=== PATIENT | male | born 1945 | race Caucasian/White ===

== ENCOUNTER → 2016-05-29 | Outpatient (CLI) | payer MEDICARE ==
[~2016-05-29] MED LIST: AMOX500C2 PO; ASP81TEC PO; CEPH250C PO; CHOL200035 PO; CHOL400C8 PO; CLIN-62 PO; COLL30OI TOP; CYAN500T2 PO; D3; DILT300C25 PO; DOXY100C2 PO; E400C; FISH1CAP15 PO; GLIM4TAB PO; IRB150T; LEVO250T7 PO; MELO7.5T PO; MTF500T PO; NEOM14.217 TP; NIA500ERT PO; NIAC500T6 PO; OMEG1CAP51 PO; OMG1KC; Phenazopyridine Hcl PO; SIMV20TA3 PO; SMV10T PO; Silver Sulfadiazine; TRZS2T PO; VITA400T9 PO; ZLP10T
--- OUTSIDE RECORDS SUMMARY | 2016-05-29 13:39 | XMS REPORT | Continuity of Care Document ---
Author Author [facility] Organization [facility] Address Unknown Phone Unavailable Care Team Providers Care Professor Of Art History Name Role Phone Femi Powell PCP [phone] Source Comments Some departments are not documenting in the electronic medical record. If you do not see the information that you expected, contact Release of Information in the Health Information Management department at [phone] for further assistance in locating additional records.[facility] Active Allergies and Adverse Reactions No Known Allergies Current Medications Prescription Sig. Disp. Refills Start End Date Status Date metFORMIN (GLUCOPHAGE) Take 500 mg by mouth Active 500 mg tablet twice daily with meals. fish oil /omega-3 fatty Take 1 Cap by mouth Active acids (SEA-OMEGA) daily. 340/1000 mg capsule vitamin E 400 unit Take 800 Units by mouth Active capsule daily. meloxicam (MOBIC) 7.5 mg Take 7.5 mg by mouth Active tablet daily. cholecalciferol (VITAMIN Take 1,000 Units by mouth Active D-3) 1,000 units tablet daily. vitamins, B complex tab Take 1 Tab by mouth Active daily. aspirin 81 mg chewable Take 81 mg by mouth at Active tablet bedtime daily. terazosin (HYTRIN) 2 mg Take 2 mg by mouth at Active capsule bedtime daily. diltiazem CD (CARDIZEM Take 300 mg by mouth Active CD) 300 mg capsule daily. sulfamethoxazole-trimetho Take 1 Tab by mouth twice 9 Tab 0 12/05/19 Active prim (BACTRIM DS) 800-160 daily. Take for 3 days 16 mg tablet nicotine (NICODERM CQ Apply 1 Patch to top of 28 Patch 2 12/05/19 Active STEP 1) 21 mg/day patch skin as directed daily. 16 Stop cigarette use at tx onset Indications: NICOTINE DEPENDENCE, SMOKING CESSATION HYDROcodone/acetaminophen Take 1 Tab by mouth every 10 Tab 0 12/07/19 Active (NORCO) 5-325 mg tablet 4-6 hours as needed for 16 Pain Active Problems Problem Noted Date UTI (lower urinary tract infection) 03/07/2015 Urethral stricture 01/10/2015 Last Assessment & Plan: Will need RUG given his current obstructive symptoms Bladder cancer (HCC) 01/10/2015 Last Assessment & Plan: Recurrent low grade Ta next surveillance cystoscopy due March 2015 Penile cancer (HCC) 01/10/2015 Last Assessment & Plan: To OR for excision, discussed 5-FU, repeat laser ablation or partial penectomy. Patient would like to undergo excision. Consents signed. Most Recent Encounters Date Type Specialty Providers Description 03/07/2016 Office Visit Urology Vishnu Cuello MBBS Postprocedural male urethral stricture (Primary Dx); Malignant neoplasm of overlapping sites of bladder (HCC); Penile cancer (HCC) Social History Tobacco Use Types Packs/Day Years Used Date Former Smoker Cigarettes 1.5 50 Smokeless Tobacco: Never Used Tobacco Cessation: Counseling Given: Yes Comments: Alcohol Use Drinks/Week oz/Week Comments No 0 Standard 0.0 Quit drinking 09/2014 drinks or equivalent Last Filed Vital Signs Vital Sign Reading Time Taken Blood Pressure 138/76 03/07/2016 2:01 PM RN ONCOLOGY RESEARCH Pulse 76 03/07/2016 2:01 PM RN ONCOLOGY RESEARCH Temperature 36.6 C (97.9 F) 12/07/2015 11:45 AM CDT Respiratory Rate - - Height 1.778 m (5' 10") 03/07/2016 2:01 PM RN ONCOLOGY RESEARCH Weight 84.369 kg (186 lb) 03/07/2016 2:01 PM RN ONCOLOGY RESEARCH Body Mass Index 26.69 03/07/2016 2:01 PM RN ONCOLOGY RESEARCH Oxygen Saturation 92% 12/07/2015 11:45 AM CDT Plan of Care Date Type Specialty Providers Description 06/04/2016 Appointment Urology Ngoc Mccarthy MD [address] [facility] [address] [place] [address] [phone] (Fax) Health Maintenance Due Date Last Done Comments Hepatitis C Screening 1945 Physical (Comprehensive) 1952 Exam Pertussis Vaccine 1957 Tetanus Vaccine 1963 Colorectal Cancer 01/21/1996 Screening Shingles Vaccine 2006 Prevnar/Pneumovax (#1) 2011 Influenza Vaccine 12/27/2015 Results from Last 3 Months Not on file
--- NOTE | 2016-05-29 15:01 | Diagnostic Imaging Report ---
PROCEDURE: Lung cancer screening CT chest without contrast. TECHNIQUE: Multiple contiguous axial images were obtained through the chest without the use of intravenous contrast. This is performed with a low-dose protocol. INDICATION: Currently asymptomatic patient with 150 pack years history of smoking COMPARISON: Chest x-ray of 11/08/2007. FINDINGS: There is a lobulated solid mass in the lower posterior aspect of the left upper lobe just anterior to the major fissure, by a few millimeters from the major fissure in its upper aspect. It is 2.7 x 2.4 x 2.2 cm in size. This mass is new from chest x-ray of 11/08/2007. No other pulmonary nodule or mass is seen. Upper lobe predominant mild emphysema changes are seen. There is no mediastinal mass or significantly enlarged lymph nodes. The hilar vessels are not opacified with no definite underlying mass or lymphadenopathy seen. No axillary lymphadenopathy noted. Sections in the upper abdomen are associated with significant image noise related to the low dose technique with no definitive abnormality. The osseous structures appear grossly unremarkable. IMPRESSION: A 2.7 cm left upper lobe mass at the level of the hilum concerning for malignancy. Evaluation with PET/CT is suggested. Dr. Powell is called and informed about the findings by Dr. Dick at time of dictation. Lung Rads Category IVb. Recommendations: PET/CT and further management decisions based on PET results recommended. Dictated by: Dictated on workstation # [id number]
== END ==
LOC: RAD 13:35
PROVIDERS: ATTEND Family Medicine
DX: Z12.2 Encounter for screening for malignant neoplasm of respiratory organs (principal); Z87.891 Personal history of nicotine dependence

== ENCOUNTER → 2016-06-03 | Outpatient (CLI) | payer MEDICARE ==
--- OUTSIDE RECORDS SUMMARY | 2016-06-03 10:23 | XMS REPORT | Continuity of Care Document ---
Author Author [facility] Organization [facility] Address Unknown Phone Unavailable Care Team Providers Care Role Player Name Role Phone Femi Powell PCP [phone] Source Comments Some departments are not documenting in the electronic medical record. If you do not see the information that you expected, contact Release of Information in the Health Information Management department at [phone] for further assistance in locating additional records.[facility] Active Allergies and Adverse Reactions No Known [...] Taken Blood Pressure 138/76 03/07/2016 2:01 PM FUR REPAIR INSPECTOR Pulse 76 03/07/2016 2:01 PM FUR REPAIR INSPECTOR Temperature 36.6 C (97.9 F) 12/07/2015 11:45 AM CDT Respiratory Rate - - Height 1.778 m (5' 10") 03/07/2016 2:01 PM FUR REPAIR INSPECTOR Weight 84.369 kg (186 lb) 03/07/2016 2:01 PM FUR REPAIR INSPECTOR Body Mass Index 26.69 03/07/2016 2:01 PM FUR REPAIR INSPECTOR Oxygen Saturation 92% 12/07/2015 11:45 AM CDT Plan of Care Date Type Specialty Providers Description 06/04/2016 Appointment Urology Ngoc Mccarthy MD [address] [facility] [address] [place] [address] [phone] (Fax) Health Maintenance Due Date Last Done Comments Hepatitis C Screening 1945 Physical (Comprehensive) 1952 Exam Pertussis Vaccine 1957 Tetanus Vaccine 1963 Colorectal Cancer 01/21/1996 Screening Shingles Vaccine 2006 Prevnar/Pneumovax (#1) 2011 Influenza Vaccine 12/27/2015 Results from Last 3 Months Not on file
--- NOTE | 2016-06-03 14:15 | Diagnostic Imaging Report ---
EXAMINATION: PET-CT TECHNIQUE: Serum glucose level at the time of the study is: 136 mg/dL. 12.2 mCi of FDG was administered intravenously followed by obtaining PET images with corresponding noncontrast CT scan images. The CT scan was performed for anatomic correlation and attenuation correction and was not performed according to the diagnostic protocol of the areas covered. The scan was performed from the head to mid thighs. INDICATION: Left lung nodule seen on screening CT scan of the chest from 05/29/2016. FINDINGS: There is a 2.4 cm left upper lobe pulmonary nodule at the level of the hilum just anterior to the major fissure with significant FDG uptake with SUV of 8.4. There is a left hilar lymph node with hypermetabolism and SUV of 7.2. This is located at the bifurcation of the left upper lobe bronchus into the upper lobe and bronchus to the lingula and is estimated to be around 1.3 cm in size, not well from the adjacent structures on this unenhanced exam. There are no hypermetabolic mediastinal lymph nodes seen. No hypermetabolic lesion is seen in the neck. No hypermetabolic asymmetry is seen in the brain. In the abdomen and pelvis, there are areas of increased uptake in a somewhat diffuse fashion predominantly in the left colon and in the rectum, may relate to colitis. There is EVAR graft in the abdominal aorta which measures up to 3.2 cm in caliber. There is diverticulosis and diffuse thickening of the urinary bladder also seen on the associated CT. The bladder thickening could relate to cystitis. Urinary tract excretion seen. No hypermetabolic mass is identified. IMPRESSION: Hypermetabolic left upper lobe pulmonary nodule with an associated hypermetabolic left hilar lymph node suggestive of lung cancer. No mediastinal lymph nodes or evidence of distant metastasis. Dictated by: Dictated on workstation # [id number]
== END ==
LOC: RAD 10:19
PROVIDERS: ATTEND Family Medicine
DX: R91.1 Solitary pulmonary nodule (principal); J44.9 Chronic obstructive pulmonary disease, unspecified; R59.0 Localized enlarged lymph nodes; Z87.891 Personal history of nicotine dependence

== ENCOUNTER → 2016-10-21 | Outpatient (CLI) | payer MEDICARE ==
[~2016-10-21] VITALS: Ht 177.8 cm; Wt 83.5 kg
[~2016-10-21] MED LIST changes: +ACETAMINOPHEN 325 MG TABLET/CAPLET (TYLENOL) ONE; +ACETAMINOPHEN 325 MG TABLET/CAPLET (TYLENOL) PO ONE; +NS IV 500 ML 500 ML IV SCH; +diphenhydrAMINE 25 MG TAB (BENADRYL) PO ONE
[2016-10-21 12:20] VITALS: BP 121/70
[2016-10-21 12:34] VITALS: BP 121/70
[2016-10-21 12:40] VITALS: BP 126/63
[2016-10-21 13:50] VITALS: BP 137/73
[2016-10-21 14:10] VITALS: BP 142/91
[2016-10-21 15:50] VITALS: BP 124/74
== END ==
LOC: SDC 11:19
PROVIDERS: ATTEND Family Medicine
DX: D69.6 Thrombocytopenia, unspecified (principal); D64.81 Anemia due to antineoplastic chemotherapy; T45.1X5A Adverse effect of antineoplastic and immunosuppressive drugs, initial encounter
CPT/HCPCS: 36415; 86850; 86900; 86901; 86920

== ENCOUNTER → 2016-10-22 | Outpatient (CLI) | payer MEDICARE ==
[~2016-10-22] MED LIST changes: -ACETAMINOPHEN 325 MG TABLET/CAPLET (TYLENOL) ONE; -ACETAMINOPHEN 325 MG TABLET/CAPLET (TYLENOL) PO ONE; -NS IV 500 ML 500 ML IV SCH; -diphenhydrAMINE 25 MG TAB (BENADRYL) PO ONE
[2016-10-22 14:05] LABS: MEAN PLATELET VOLUME 9.9 FL (7.4-10.4); RED BLOOD COUNT 2.45 10^6/uL (4.35-5.85); RED CELL DISTRIBUTION WIDTH 18.5 % (10.0-14.5); WHITE BLOOD COUNT 6.8 10^3/uL (4.3-11.0)
== END ==
LOC: LAB 13:53
PROVIDERS: ATTEND Family Medicine
DX: D64.9 Anemia, unspecified (principal); D69.6 Thrombocytopenia, unspecified
CPT/HCPCS: 36415; 85027

== ENCOUNTER 2017-10-12 06:29 | Outpatient (CLI) | payer MEDICARE ==
[~2017-10-12] VITALS: Ht 177.8 cm; Wt 79.4 kg
[2017-10-12] MEDS ORDERED: METF10002 PO (15:45)
[2017-10-12] MEDS ORDERED: ATOR80TA76 PO (15:45)
[2017-10-12] MEDS ORDERED: TERA2CAP4 PO (15:45)
[2017-10-12] MEDS ORDERED: ASPI-586 PO (15:45)
[2017-10-12] MEDS ORDERED: DOCO1CAP3 PO (15:45)
[2017-10-12] MEDS ORDERED: MIRT15TA6 PO (15:45)
[2017-10-12] MEDS ORDERED: VITA400T9 PO (15:45)
[2017-10-12] MEDS ORDERED: SAXA5TAB PO (15:45)
[2017-10-12] MEDS ORDERED: CHOL400T PO (15:45)
[2017-10-12] MEDS ORDERED: DILT300C36 PO (15:45)
[2017-10-12] MEDS ORDERED: DIPH25TA27 PO (15:45)
== END 2017-10-12 15:58 | disposition home or self-care (01) ==
LOC: PREOP 06:29
PROVIDERS: ATTEND Surgery
DX: Z01.818 Encounter for other preprocedural examination (principal)

== ENCOUNTER 2017-10-21 12:39 | Day surgery (SDC) | payer MEDICARE ==
[~2017-10-21] VITALS: Ht 177.8 cm; Wt 79.4 kg
[~2017-10-21 12:39] MED LIST changes: +ASPI-586 PO; +ATOR80TA76 PO; +CHOL400T PO; +DILT300C36 PO; +DIPH25TA27 PO; +DOCO1CAP3 PO; +METF10002 PO; +MIRT15TA6 PO; +SAXA5TAB PO; +TERA2CAP4 PO
--- OUTSIDE RECORDS SUMMARY | 2017-10-21 12:45 | XMS REPORT | Encounter Summary ---
Author Author [facility] Organization [facility] Address Unknown Phone Unavailable Care Team Providers Care Farmworker Pullet Farm Name Role Phone Ngoc Mccarthy MD Unavailable Unavailable Femi Powell DO PCP Estella Hutchison RN Unavailable Unavailable Jessica Crooks RN Unavailable Unavailable Ngoc Mccarthy MD Unavailable Unavailable Yue Allen RN Unavailable Unavailable Encounter Details Date Type Department Care Team Description 08/05/2017 Procedure Pass [facility] Exam [address] [place] [address] Social History Tobacco Use Types Packs/Day Years Used Date Former Smoker Cigarettes 2.5 50 Quit: 12/13/2015 Smokeless Tobacco: Never Used Alcohol Use Drinks/Week oz/Week Comments No 0 Standard 0.0 Quit drinking 09/2014 drinks or equivalent Sex Assigned at Date Recorded Not on file as of this encounter Functional Status Functional Status Response Date of Assessment Does the patient have a hearing impairment: No 09/12/2016 Does the patient have a visual impairment: Yes 09/12/2016 Does the patient have impaired ambulation: No 09/12/2016 Does the patient have an activity of daily living No 09/12/2016 (ADL) impairment: Does the patient have an instrumental activity of No 09/12/2016 daily living (IADL) impairment: Cognitive Status Response Date of Assessment Does the patient have a cognitive impairment: No 09/12/2016 as of this encounter Plan of Treatment Date Type Specialty Care Team Description 08/05/2017 Procedure Pass Oncology as of this encounter Visit Diagnoses Not on filein this encounter
--- OUTSIDE RECORDS SUMMARY | 2017-10-21 12:45 | XMS REPORT | Clinical Summary ---
Author Author [facility] Organization [facility] Address Unknown Phone Unavailable Care Team Providers Care Nascar Pit Crew Person Name Role Phone Ngoc Mccarthy MD Unavailable Unavailable Femi Powell DO PCP Estella Hutchison RN Unavailable Unavailable Jessica Crooks RN Unavailable Unavailable Ngoc Mccarthy MD Unavailable Unavailable Yue Allen RN Unavailable Unavailable Source Comments Some departments are not documenting in the electronic medical record. If you do not see the information that you expected, contact Release of Information in the Health Information Management department at [phone] for further assistance in locating additional records.[facility] Allergies No Known Allergies Current Medications Prescription Sig. Disp. Refills Start End Date Status Date fish oil /omega-3 fatty Take 1 Cap by mouth Active acids (SEA-OMEGA) daily. 340/1000 mg capsule vitamin E 400 unit Take 800 Units by mouth Active capsule daily. cholecalciferol (VITAMIN Take 1,000 Units by mouth Active D-3) 1,000 units tablet daily. aspirin 81 mg chewable Take 81 mg by mouth at Active tablet bedtime daily. terazosin (HYTRIN) 2 mg Take 2 mg by mouth at Active capsule bedtime daily. insulin detemir(+) Inject 20 Units under the 06/04/19 Active (LEVEMIR) 100 unit/mL skin at bedtime daily. 17 soln Saxagliptin 5 mg tab Take 1 Tab by mouth Active daily. insulin aspart (NOVOLOG 4 Units three times daily Active FLEXPEN) 100 unit/mL with meals. 4 units in injection PEN am, 4 units noon, 4 units pm lidocaine/prilocaine Apply to port area 30 30 g 2 08/02/19 Active (EMLA) 2.5/2.5 % topical minutes to 1 hour prior 17 cream to access. collagenase (SANTYL) 250 Apply topically to Active unit/g topical ointment affected area daily as needed. mupirocin (BACTROBAN) 2 % Apply topically to Active topical ointment affected area daily as needed. atorvastatin (LIPITOR) 80 Take 40 mg by mouth at Active mg tablet bedtime daily. diltiazem SA (+) (TIAZAC) Take 300 mg by mouth Active 300 mg capsule daily. metFORMIN (GLUCOPHAGE) Take 1,000 mg by mouth Active 1,000 mg tablet twice daily with meals. docusate (COLACE) 100 mg Take 200 mg by mouth Active capsule daily as needed for Constipation. erythromycin (ROMYCIN) Apply 0.5 inches to both 3.5 g 2 12/10/19 Active ophthalmic eyes three times daily. 17 ointmentIndications: Bacterial conjunctivitis of both eyes budesonide respule Inhale 2 mL solution by 60 mL 3 02/13/20 Active (PULMICORT) 0.5 mg/2 mL nebulizer as directed 17 nebulizer twice daily. J44.9 COPD solutionIndications: Chronic obstructive pulmonary disease, unspecified COPD type (HCC) mirtazapine (REMERON) 15 Take 1 tablet by mouth at 90 tablet 3 Active mg tablet bedtime daily. 18 Active Problems Problem Noted Date Chronic hypoxemic respiratory failure (HCC) 02/11/2017 Nicotine dependence, cigarettes, in remission 02/11/2017 CLEO (acute kidney injury) ([facility]) 08/01/2016 Last Assessment & Plan: IV fluids on and Thursday. Repeat CMP on Thursday and on 08/08. Small cell lung cancer (HCC) 07/04/2016 Overview: He presented to PCP for increaseing SOB and productive cough over few months. 05/29/16: CT lung screening showed a 2.7 x 2.4 x 2.2cm lobulated BLAS mass. 06/03/16: PET showed a BLAS mass with SUV 8.4, L hilar node (1.3cm, SUV 7.2). 06/17/16: CT chest showed stable BLAS mass, stable tiny RML nodule, and mild L hilar node, moderate empysema. 06/17/16: PFTs showed FEV1 45% predicted, DLCO 38% predicted, indicating very poor pulmonary function. 06/17/16: visit to [facility] thoracic surgery. cT1bN1. Due to the poor pulmonary function, nonsurgical approach was recommended. 06/26/16: EBUS FNA on 12L node showed carcinoma with +ve CK7/TTF1/CD56/chromo/synapto/Ki67 > 95%, consistent with small cell lung cancer. 07/03/16: visit to radiation oncology (Ephraim Brandon). Concurrent chemoradiation (45Gy in 30Fr BID) was suggested. 07/16/16: Brain MRI showed no metastatic lesion but sign of subacute stroke. Treatment- Cisplatin etoposide X 1 cycle, Carboplatin Etoposide 3 cycles - Concurrent radiation. (Last chemotherapy 10/07/2016). L ast Assessment & Plan: He is here for follow up. He has continued fatigue and poor appetite. Weight stable but not able to gain. On examination he has no focal neurological deficit. No palpable neck adenopathy on neck. Lungs clear bilaterally. Labs reviewed and are stable. TSH few months ago was normal. I discussed sleep and appetite. I prescribed Remeron 15 mg to help sleep and appetite. Return in 3 months with lab and CT scan, will follow up any appetite improvement as well. Personal history of tobacco use 06/20/2016 UTI (lower urinary tract infection) 03/07/2015 Urethral [...] would like to undergo excision. Consents signed. Lung nodule COPD (chronic obstructive pulmonary disease) (HCC) Encounters Date Type Specialty Care Team Description 08/26/2017 Telephone Oncology Venkat Cm MD Appointment Request 08/05/2017 Office Visit Oncology Venkat Cm MD Small cell lung cancer (HCC) 08/05/2017 Nurse Only Oncology Venkat Cm MD Small cell carcinoma of lung (HCC) 08/03/2017 Office Visit Radiation Therapy Vesta Brandon MD Lung nodule from Last 3 Months Immunizations Name Dates Previously Given Next Due Flu Vaccine=>66 YO 02/11/2017 High-Dose (PF) Pneumococcal 02/11/2017 Vaccine(13-[facility]/immunocompromised adult) Family History Medical History Relation Name Comments Drug Abuse Brother Stroke Father Hip Fracture Mother Relation Name Status Comments Brother Overdose (Age 72) Brother Father (Age 63) Mother (Age 97) Social History Tobacco Use Types Packs/Day Years Used Date Former Smoker Cigarettes 2.5 50 Quit: 12/13/2015 Smokeless Tobacco: Never Used Tobacco Cessation: Counseling Given: Yes Alcohol Use Drinks/Week oz/Week Comments No 0 Standard 0.0 Quit drinking 09/2014 drinks or equivalent Sex Assigned at Date Recorded Not on file Last Filed Vital Signs Vital Sign Reading Time Taken Blood Pressure 151/82 08/05/2017 10:53 AM CDT Pulse 94 08/05/2017 10:53 AM CDT Temperature 36.4 C (97.5 F) 08/05/2017 10:53 AM CDT Respiratory Rate 20 08/05/2017 10:53 AM CDT Oxygen Saturation 94% 08/05/2017 10:53 AM CDT Inhaled Oxygen - - Concentration Weight 80.1 kg (176 lb 9.6 oz) 08/05/2017 10:53 AM CDT Height 177.8 cm (5' 10") 08/05/2017 10:53 AM CDT Body Mass Index 25.34 08/05/2017 10:53 AM CDT Plan of Treatment Date Type Specialty Care Team Description 08/05/2017 Procedure Pass Oncology Health Maintenance Due Date Last Done Comments HEPATITIS C SCREENING 1945 PHYSICAL (COMPREHENSIVE) 1952 EXAM PERTUSSIS VACCINE 1957 TETANUS VACCINE 1963 COLORECTAL CANCER 01/21/1996 SCREENING SHINGLES RECOMBINANT 01/21/1996 VACCINE (1 of 2) ABDOMINAL AORTIC ANEURYSM 2011 SCREENING INFLUENZA VACCINE 01/25/2018 02/11/2017 PNEUMONIA (PCV13/PPSV23) 02/11/2018 02/11/2017 VACCINES (2 of 2 - PPSV23) Implants Implanted Type Area Key Holder Device Expiration Model / Identifier Date Serial / Lot Port Implantable 8 Float Point Unit Right: CR BARD:ACCESS [id number] 03/24/2017 [id number] / [employer] Intermediate - S. Chest Wall SYS [id number] . / Implanted: Qty: 1 on 07/30/2016 by [id number] Terrence Acuña MD Results * CBC AND DIFF (08/05/2017 10:24 AM) Component Value Ref Range White Blood Cells 8.7 4.5 - 11.0 K/UL RBC 4.11 (L) 4.4 - 5.5 M/UL Hemoglobin 13.5 13.5 - 16.5 GM/DL Hematocrit 39.0 (L) 40 - 50 % MCV 95.0 80 - 100 FL MCH 32.9 26 - 34 PG MCHC 34.6 32.0 - 36.0 G/DL RDW 13.9 11 - 15 % Platelet Count 173 150 - 400 K/UL MPV 7.6 7 - 11 FL Neutrophils 66 41 - 77 % Lymphocytes 15 (L) 24 - 44 % Monocytes 12 4 - 12 % Eosinophils 6 (H) 0 - 5 % Basophils 1 0 - 2 % Absolute Neutrophil Count 5.90 1.8 - 7.0 K/UL Absolute Lymph Count 1.30 1.0 - 4.8 K/UL Absolute Monocyte Count 1.00 (H) 0 - 0.80 K/UL Absolute Eosinophil Count 0.50 (H) 0 - 0.45 K/UL Absolute Basophil Count 0.10 0 - 0.20 K/UL Specimen Performing Laboratory Blood [facility] [address] [place] [address] * LDH-LACTATE DEHYDROGENASE (08/05/2017 10:24 AM) Component Value Ref Range Lactate Dehydrogenase 208 100 - 210 U/L Specimen Performing Laboratory Blood [facility] [address] [place] [address] * COMPREHENSIVE METABOLIC PANEL (08/05/2017 10:24 AM) Component Value Ref Range Sodium 140 137 - 147 MMOL/L Potassium 4.3 3.5 - 5.1 MMOL/L Chloride 105 98 - 110 MMOL/L Glucose 133 (H) 70 - 100 MG/DL Blood Urea Nitrogen 20 7 - 25 MG/DL Creatinine 1.36 (H) 0.4 - 1.24 MG/DL Calcium 9.4 8.5 - 10.6 MG/DL Total Protein 6.6 6.0 - 8.0 G/DL Total Bilirubin 0.4 0.3 - 1.2 MG/DL Albumin 3.8 3.5 - 5.0 G/DL Alk Phosphatase 81 25 - 110 U/L AST (SGOT) 16 7 - 40 U/L CO2 30 21 - 30 MMOL/L ALT (SGPT) 13 7 - 56 U/L Anion Gap 5 3 - 12 eGFR Non 52 (L) >60 mL/min Comment: The eGFR is not validated for use in drug dosing adjustments.Continue to use estimated creatinine clearance per dosing reference text.Please contact the Clinical Pharmacist for questions. eGFR >60 >60 mL/min Comment: The eGFR is not validated for use in drug dosing adjustments.Continue to use estimated creatinine clearance per dosing reference text.Please contact the Clinical Pharmacist for questions. Specimen Performing Laboratory Blood [facility] [address] [place] [address] from Last 3 Months
--- OUTSIDE RECORDS SUMMARY | 2017-10-21 12:45 | XMS REPORT | Encounter Summary ---
Author Author [facility] Organization [facility] Address Unknown Phone Unavailable Care Team Providers Care Smalltalk Developer Name Role Phone Ngoc Mccarthy MD Unavailable Unavailable Femi Powell DO PCP Estella Hutchison RN Unavailable Unavailable Jessica Crooks RN Unavailable Unavailable Ngoc Mccarthy MD Unavailable Unavailable Yue Allen RN Unavailable Unavailable Reason for Visit * Reason Comments Appointment Request Encounter Details Date Type Department Care Team Description 08/26/2017 Telephone [facility] Venkat Cm MD Appointment Request [facility] - [facility] Exam [address] [place] [address] [place] [address] [phone] Social History Tobacco Use Types Packs/Day Years [...] impairment: No 09/12/2016 as of this encounter Miscellaneous Notes * Telephone Encounter - Kolby Hernández - 08/26/2017 9:18 AM CDT Spoke to pt to inform of the need to r/s his scans and rtc on 11/04 due to clinic freeze. He is now scheduled on 11/11 for labs/CT and RTC with Dr Cm. He is aware and agreed to date and time. in this encounter Plan of Treatment Date Type Specialty Care Team Description 08/05/2017 Procedure Pass Oncology as of this encounter Visit Diagnoses Not on filein this encounter
--- OUTSIDE RECORDS SUMMARY | 2017-10-21 12:45 | XMS REPORT | Encounter Summary ---
Author Author [facility] Organization [facility] Address Unknown Phone Unavailable Care Team Providers Care Candy Dipper Hand Name Role Phone Ngoc Mccarthy MD Unavailable Unavailable Femi Powell DO PCP Estella Hutchison RN Unavailable Unavailable Jessica Crooks RN Unavailable Unavailable Ngoc Mccarthy MD Unavailable Unavailable Yue Allen RN Unavailable Unavailable Reason for Visit * Reason Comments Heme/Onc Care Encounter Details Date Type Department Care Team Description 08/05/2017 Nurse Only [facility] Venkat Cm MD Small cell carcinoma of Cancer Center - [facility] Exam [address] lung (HCC) [address] [place] [address] [place] [address] [phone] Social History Tobacco Use Types Packs/Day Years [...] Procedure Pass Oncology as of this encounter Results * LDH-LACTATE DEHYDROGENASE (08/05/2017 10:24 AM) Component Value Ref Range Lactate Dehydrogenase 208 100 - 210 U/L Specimen Performing Laboratory Blood [facility] [address] [place] [address] * CBC AND DIFF (08/05/2017 10:24 AM) [...] - 0.20 K/UL Specimen Performing Laboratory Blood [facility] [address] [place] [address] * COMPREHENSIVE METABOLIC PANEL (08/05/2017 10:24 AM) [...] Pharmacist for questions. Specimen Performing Laboratory Blood [facility] [address] [place] [address] in this encounter Visit Diagnoses Diagnosis Small cell carcinoma of lung (HCC) Malignant neoplasm of bronchus and lung, unspecified site Administered Medications Medication Order MAR Action Action Date Dose Rate Site heparin lock flush PF syringe 500 Units Given 08/05/2017 500 Units 500 Units, Intravenous, ONCE, 1 dose, 10:20 CDT 08/05/17 at 1030, NOTE: This is a HIGH ALERT Medication. in this encounter
--- OUTSIDE RECORDS SUMMARY | 2017-10-21 12:46 | XMS REPORT | Encounter Summary ---
Author Author [facility] Organization [facility] Address Unknown Phone Unavailable Care Team Providers Care Technical Lead Name Role Phone Ngoc Mccarthy MD Unavailable Unavailable Femi Powell DO PCP Estella Hutchison RN Unavailable Unavailable Jessica Crooks RN Unavailable Unavailable Ngoc Mccarthy MD Unavailable Unavailable Yue Allen RN Unavailable Unavailable Reason for Referral * Radiology Services Status Reason Specialty Diagnoses / Referred By Referred To Procedures Contact Contact New Request Radiology Diagnoses Soila, Small cell lung MD Venkat cancer (HCC) [address] rocedures [address] [place], [place] [address] Reason for Visit * Reason Comments Heme/Onc Care Encounter Details Date Type Department Care Team Description 08/05/2017 Office Visit [facility] Veknat Cm MD Small cell lung cancer [facility] Exam [address] (HCC) [address] [place] [address] [place] [address] [phone] Social History Tobacco Use Types Packs/Day Years Used Date Former Smoker Cigarettes 2.5 50 Quit: 12/13/2015 Smokeless Tobacco: Never Used Alcohol Use Drinks/Week oz/Week Comments No 0 Standard 0.0 Quit drinking 09/2014 drinks or equivalent Sex Assigned at Date Recorded Not on file as of this encounter Last Filed Vital Signs Vital Sign Reading [...] Mass Index 25.34 08/05/2017 10:53 AM CDT in this encounter Functional Status Functional Status Response [...] impairment: No 09/12/2016 as of this encounter Progress Notes * Venkat Cm MD - 08/05/2017 11:00 AM CDT Formatting of this note may be different from the original. Date of Service: 08/05/2017 Subjective: Reason for Visit: Heme/Onc Care Nhan Galeano is a 72 y.o. male. Cancer Staging Bladder cancer (HCC) Staging form: Urinary Bladder, AJCC 7th Edition - Clinical: No stage assigned - Unsigned Smalll cell Lung Cancer History of Present Illness He presented to PCP for increaseing SOB [...] very poor pulmonary function. 06/17/16: visit to [facility] thoracic surgery. cT1bN1. Due to the poor pulmonary function, nonsurgical approach was recommended. 06/26/16: EBUS FNA on 12L node showed carcinoma with +ve CK7/TTF1/CD56/chromo/ synapto/Ki67 > 95%, consistent with small cell lung cancer. 07/03/16: visit to radiation oncology (Ephraim Brandon). Concurrent chemoradiation (45Gy in 30Fr BID) was suggested. 07/16/16: Brain MRI showed no metastatic lesion but sign of subacute stroke. Past Treatment- Cisplatin and etoposide one cycle (stopped because of toxicity) Carboplatin etoposide 3 cycles , last cycle 10/07/2016 and concurrent radiation ( total 4 cycles of chemotherapy completed) completed WBRT on 12/04/16. Interval history: He is here for follow up. He has continued to have significant fatigue which is gradually improving, feels much better now but still bothered by residual fatigue. Dyspnea is stable to slightly better. Review of Systems Constitutional: Positive for fatigue. HENT: Negative. Respiratory: Positive for shortness of breath. Cardiovascular: Negative. Gastrointestinal: Negative. Negative for nausea and vomiting. Genitourinary: Negative. Musculoskeletal: Negative. Skin: Negative. Neurological: Negative. Hematological: Negative. Psychiatric/Behavioral: Negative. All other systems reviewed and are negative. Objective: aspirin 81 mg chewable tablet Take 81 mg by mouth at bedtime daily. atorvastatin (LIPITOR) 80 mg tablet Take 40 mg by mouth at bedtime daily. budesonide respule (PULMICORT) 0.5 mg/2 mL nebulizer solution Inhale 2 mL solution by nebulizer as directed twice daily. J44.9 COPD cholecalciferol (VITAMIN D-3) 1,000 units tablet Take 1,000 Units by mouth daily. collagenase (SANTYL) 250 unit/g topical ointment Apply topically to affected area daily as needed. diltiazem SA (+) (TIAZAC) 300 mg capsule Take 300 mg by mouth daily. docusate (COLACE) 100 mg capsule Take 200 mg by mouth daily as needed for Constipation. erythromycin (ROMYCIN) ophthalmic ointment Apply 0.5 inches to both eyes three times daily. fish oil /omega-3 fatty acids (SEA-OMEGA) 340/1000 mg capsule Take 1 Cap by mouth daily. insulin aspart (NOVOLOG FLEXPEN) 100 unit/mL injection PEN 4 Units three times daily with meals. 4 units in am, 4 units noon, 4 units pm insulin detemir(+) (LEVEMIR) 100 unit/mL soln Inject 20 Units under the skin at bedtime daily. lidocaine/prilocaine (EMLA) 2.5/2.5 % topical cream Apply to port area 30 minutes to 1 hour prior to access. metFORMIN (GLUCOPHAGE) 1,000 mg tablet Take 1,000 mg by mouth twice daily with meals. mirtazapine (REMERON) 15 mg tablet Take 1 tablet by mouth at bedtime daily. mupirocin (BACTROBAN) 2 % topical ointment Apply topically to affected area daily as needed. Saxagliptin 5 mg tab Take 1 Tab by mouth daily. terazosin (HYTRIN) 2 mg capsule Take 2 mg by mouth at bedtime daily. vitamin E 400 unit capsule Take 800 Units by mouth daily. Vitals: 08/05/17 1053 BP: 151/82 Pulse: 94 Resp: 20 Temp: 36.4 C (97.5 F) TempSrc: Oral SpO2: 94% Weight: 80.1 kg (176 lb 9.6 oz) Height: 177.8 cm (70") Body mass index is 25.34 kg/m. Pain Score: Zero Pain Addressed: N/A Patient Evaluated for a Clinical Trial: No treatment clinical trial available for this patient. Eastern Cooperative Oncology Group performance status is 1, Restricted in physically strenuous activity but ambulatory and able to carry out work of a light or sedentary nature, e.g., light house work, office work. Physical Exam Constitutional: He is oriented to person, place, and time. Vital signs are normal. He appears well-developed and well-nourished. He is active. No distress. HENT: Head: Normocephalic and atraumatic. Right Ear: External ear normal. Left Ear: External ear normal. Nose: Nose normal. Mouth/Throat: Uvula is midline, oropharynx is clear and moist and mucous membranes are normal. No oropharyngeal exudate. Eyes: Conjunctivae and EOM are normal. Pupils are equal, round, and reactive to light. Right eye exhibits no discharge. Left eye exhibits no discharge. Neck: Trachea normal, normal range of motion and full passive range of motion without pain. No JVD present. Carotid bruit is not present. No thyromegaly present. Cardiovascular: Normal rate, regular rhythm, S1 normal, S2 normal, normal heart sounds, intact distal pulses and normal pulses. Exam reveals no gallop and no friction rub. No murmur heard. Pulmonary/Chest: Effort normal. No respiratory distress. He has no decreased breath sounds. He has no wheezes. He has no rhonchi. He has no rales. He exhibits no tenderness. Abdominal: Soft. Normal appearance and bowel sounds are normal. He exhibits no distension. There is no hepatosplenomegaly. There is no tenderness. Musculoskeletal: Normal range of motion. He exhibits no edema or tenderness. Lymphadenopathy: He has no cervical adenopathy. He has no axillary adenopathy. Neurological: He is alert and oriented to person, place, and time. No cranial nerve deficit. Skin: Skin is warm. He is not diaphoretic. There is pallor. Psychiatric: He has a normal mood and affect. His speech is normal and behavior is normal. Judgment and thought content normal. Cognition and memory are normal. Vitals reviewed. Assessment and Plan: Problem Small Cell Lung Cancer (Hcc) He presented to PCP for increaseing SOB [...] very poor pulmonary function. 06/17/16: visit to [facility] thoracic surgery. cT1bN1. Due to the poor pulmonary function, nonsurgical approach was recommended. 06/26/16: EBUS FNA on 12L node showed carcinoma with +ve CK7/TTF1/CD56/chromo/ synapto/Ki67 > 95%, consistent with small cell lung cancer. 07/03/16: visit to radiation oncology ([facility]). Concurrent chemoradiation (45Gy in 30Fr BID) was suggested. 07/16/16: Brain MRI showed no metastatic lesion but sign of subacute stroke. Treatment- Cisplatin etoposide X 1 cycle, Carboplatin Etoposide 3 cycles - Concurrent radiation. (Last chemotherapy 2016). Small cell lung cancer (HCC) He is here for follow up. He [...] follow up any appetite improvement as well. in this encounter Miscellaneous Notes * Assessment & Plan Note - Venkat Cm MD - 08/05/2017 9:25 PM CDT Associated Problem(s): Small cell lung cancer (HCC) He is here for follow up. He [...] follow up any appetite improvement as well. in this encounter Plan of Treatment Date Type Specialty Care Team Description 08/05/2017 Procedure Pass Oncology Name Priority Associated Diagnoses Order Schedule COMPREHENSIVE METABOLIC PANEL Routine Small cell lung cancer Expected: 11/04/2017 (HCC) (Approximate), Expires: 08/05/2018 LDH-LACTATE DEHYDROGENASE Routine Small cell lung cancer Expected: 11/04 (HCC) (Approximate), Expires: 08/05/2018 CBC AND DIFF Routine Small cell lung cancer Expected: 11/04/2017 (HCC) (Approximate), Expires: 08/05/2018 CT CHEST W CONTRAST Routine Small cell lung cancer Expected: 11/04/2017 (HCC) (Approximate), Expires: 08/05/2018 as of this encounter Visit Diagnoses Diagnosis Small cell lung cancer (HCC) Malignant neoplasm of bronchus and lung, unspecified site
--- OUTSIDE RECORDS SUMMARY | 2017-10-21 12:46 | XMS REPORT | Encounter Summary ---
Author Author [facility] Organization [facility] Address Unknown Phone Unavailable Care Team Providers Care Director Transition Name Role Phone Ngoc Mccarthy MD Unavailable Unavailable Femi Powell DO PCP Estella Hutchison RN Unavailable Unavailable Jessica Crooks RN Unavailable Unavailable Ngoc Mccarthy MD Unavailable Unavailable Yue Allen RN Unavailable Unavailable Reason for Visit * Reason Comments Rad Therapy Follow-up Encounter Details Date Type Department Care Team Description 08/03/2017 Office Visit [facility] - Radiation Vesta Brandon MD Lung nodule Therapy [address] [place] [address] [place] [address] [phone] Social History Tobacco Use Types Packs/Day Years Used Date Former Smoker Cigarettes 2.5 50 Quit: 12/13/2015 Smokeless Tobacco: Never Used Alcohol Use Drinks/Week oz/Week Comments No 0 Standard 0.0 Quit drinking 09/2014 drinks or equivalent Sex Assigned at Date Recorded Not on file as of this encounter Last Filed Vital Signs Vital Sign Reading Time Taken Blood Pressure 133/68 08/03/2017 9:40 AM CDT Pulse 110 08/03/2017 9:40 AM CDT Temperature 37 C (98.6 F) 08/03/2017 9:40 AM CDT Respiratory Rate - - Oxygen Saturation 91% 08/03/2017 9:40 AM CDT Inhaled Oxygen - - Concentration Weight 79.6 kg (175 lb 6.4 oz) 08/03/2017 9:40 AM CDT Height 175.3 cm (5' 9") 08/03/2017 9:40 AM CDT Body Mass Index 25.9 08/03/2017 9:40 AM CDT in this encounter Functional Status [...] as of this encounter Progress Notes * Vesta Brandon MD - 08/03/2017 10:00 AM CDT Formatting of this note may be different from the original. Date: 08/03/2017 Nhan Galeano is a 72 y.o. male. There were no encounter diagnoses. Staging: Cancer Staging Bladder cancer (HCC) Staging form: Urinary Bladder, AJCC 7th Edition - Clinical: No stage assigned - Unsigned Subjective: Cancer Staging Bladder cancer (HCC) Staging form: Urinary Bladder, AJCC 7th Edition - Clinical: No stage assigned - Unsigned History of Present Illness Previous radiotherapy: 1. concurrent chemoradiation to 45 Gy in 30 fractions BID with cisplatin/ etoposide, completed 08/13/16. 2. PCI, 25 Gy in 10 fractions, hippocampal sparing IMRT, completed 12/01/16 72 yo gentleman with limited stage SCLC s/p concurrent chemoRT BID and subsequent hippocampal-sparing PCI in November 2016. He was treated with hippocampal-sparing IMRT off trial (excluded due to history of bladder cancer). Interval history: Mr. Galeano returns today for 3 month follow-up. He continues to improve slowly from his treatments. He most significant complaint is fatigue, which has been improving very slowly since completion of his treatment. He still does not do much active work due to this. He also notes decreased appetite and continued taste changes; he has lost about 35 pounds from his pre-treatment weight, though this is starting to stabilize. No headaches, vision changes, facial numbness/weakness, limb numbness/weakness. No new cough, chest pain, hemoptysis , shortness of breath. Review of Systems Constitutional: Positive for fatigue. HENT: Positive for rhinorrhea and voice change. Eyes: Positive for discharge, redness and itching. Respiratory: Positive for cough (cough has worsened in the past week, has been taking OTC meds. Gets SOB sometimes, O2 sat running in mid 80s to low 90s, has oxygen at home; patient may start wearing oxygen at night.) and wheezing (Still has a nebulizer if needed. ). Gastrointestinal: Positive for constipation. Musculoskeletal: Positive for back pain and gait problem. Neurological: Positive for tremors (Gets really cold and then starts to shake, this occurs randomly and then resolves after several hours. ) and numbness (has searing nerve pain on bottoms of feet and sometimes fingers, patient is also diabetic, takes insulin but does not check BG levels; patient was instructed to check BG level daily. ). All other systems reviewed and are negative. Objective: albuterol (VENTOLIN HFA, PROAIR HFA, PROVENTIL HFA) 90 mcg/actuation inhaler Inhale 2 Puffs by mouth into the lungs every 6 hours as needed for Wheezing or Shortness of Breath. Shake well before use. albuterol-ipratropium (DUO-NEB, DUO-VENT) 0.5 mg-3 mg(2.5 mg base)/3 mL nebulizer solution Inhale 3 mL solution by nebulizer as directed four times daily. J44.9 COPD aspirin 81 mg chewable tablet Take 81 [...] mg by mouth twice daily with meals. mupirocin (BACTROBAN) 2 % topical ointment Apply topically to affected area daily as needed. ondansetron (ZOFRAN) 8 mg tablet Take 1 tablet by mouth every 8 hours as needed for Nausea or Vomiting. Saxagliptin 5 mg tab Take 1 Tab by mouth daily. terazosin (HYTRIN) 2 mg capsule Take 2 mg by mouth at bedtime daily. vitamin E 400 unit capsule Take 800 Units by mouth daily. vitamins, B complex tab Take 1 Tab by mouth daily. Vitals: 08/03/17 0940 BP: 133/68 Pulse: 110 Temp: 37 C (98.6 F) TempSrc: Temporal SpO2: (!) 91% Weight: 79.6 kg (175 lb 6.4 oz) Height: 175.3 cm (69") Body mass index is 25.9 kg/m. Pain Score: Zero KARNOFSKY PERFORMANCE SCORE: 80% Normal activity with effort; some symptoms of disease Physical Exam Constitutional: He is oriented to person, place, and time. He appears well- developed and well-nourished. No distress. HENT: Head: Normocephalic and atraumatic. Mouth/Throat: Oropharynx is clear and moist. Eyes: EOM are normal. Pupils are equal, round, and reactive to light. Cardiovascular: Normal rate and regular rhythm. Pulmonary/Chest: Effort normal and breath sounds normal. No respiratory distress. Neurological: He is alert and oriented to person, place, and time. No cranial nerve deficit. He exhibits normal muscle tone. Coordination normal. Assessment and Plan: Previous radiotherapy: 1. concurrent chemoradiation to 45 Gy in 30 fractions BID with cisplatin/ etoposide, completed 08/13/16. 2. PCI, 25 Gy in 10 fractions, hippocampal sparing IMRT, completed 12/01/16 History of Present Illness Mr. Galeano is a 72 yo gentleman with limited stage SCLC s/p concurrent chemoRT BID and subsequent hippocampal-sparing PCI in November 2016. He was treated with hippocampal-sparing IMRT off trial (excluded due to history of bladder cancer). He returns today for 3 month follow-up. He has been continuing to recover from his treatments, with slowly improving fatigue and some weight gain since his last visit. We discussed non-medication strategies to help him improve general well-being, including exercise, nutritional supplementation, and scheduled meals. He is reluctant to try further medical interventions at this time. We will plan to follow-up with him on an as needed basis given his close follow-up with medical oncology. Florentin Hickey MD PGY-3 Radiation Oncology [facility] 9062 ATTESTATION I personally performed the thomas portions of the E/M visit, discussed case with resident and concur with resident documentation of history, physical exam, assessment, and treatment plan unless otherwise noted. Staff name: Vesta Brandon MD Date: 08/04/2017 in this encounter Plan of Treatment Date Type Specialty Care Team Description 08/05/2017 Procedure Pass Oncology as of this encounter Visit Diagnoses Diagnosis Lung nodule Solitary pulmonary nodule
[2017-10-21 13:00] VITALS: BP 131/74
--- NOTE | 2017-10-21 14:47 | Conscious Sedation/ASA ---
Conscious Sedation Pre-Proced Time Reviewed: 14:47 ASA Class: 2 Airway Mallampati Classification: ([place] appropriate class) I. II. III, IV Lungs Heart ASA score ASA 1: a normal healthy patient ASA 2: a patient with a mild systemic disease (mid diabetes, controlled hypertension, obesity ASA 3: a patient with a severe systemic disease that limits activity (angina , COPD, prior Myocardial infarction) ASA 4: a patient with an incapacitating disease that is a constant threat to life (CHF, renal failure) ASA 5: a moribund patient not expected to survive 24 hrs. (ruptured aneurysm) ASA 6: a declared brain patient whose organs are being harvested. For emergent operations, add the letter E after the classification Grade 2 Sedation Plan: Discussed options with patient/fam Note The patient is an appropriate candidate to undergo the planned procedure, sedation, and anesthesia. The patient immediately re-assessed prior to indication. SHIRA JONES MD Oct 21, 2017 2:47 pm
[2017-10-21] MEDS ORDERED: fentaNYL INJECTION 100 MCG/2 ML AMP ONE (14:57)
[2017-10-21] MEDS ORDERED: MIDAZOLAM 2 MG/2 ML (VERSED) VIAL ONE ×4 (14:57)
[2017-10-21] MEDS ORDERED: NS IV 500 ML 500 ML ONE (15:03)
[2017-10-21] MEDS: fentaNYL INJECTION 100 MCG/2 ML AMP IVP PRN ×2 (15:10→15:13)
[2017-10-21] MEDS: MIDAZOLAM 2 MG/2 ML (VERSED) VIAL IVP PRN ×2 (15:11→15:14)
--- NOTE | 2017-10-21 15:40 | Endo Procedure Record ---
Endo Procedure Report Date of Procedure Last Colonoscopy: Yes (10/21/17) Oct 21, 2017 Surgeon (s) SHIRA JONES MD Post Procedure/Op Diagnosis 12 mm polyps 2, Catracho due to the along the proximal descending colon Sigmoid diverticulosis 1 mm polyp at the cecum Procedure Performed colonoscopy to cecum Snare polypectomy 2 Hot biopsy polypectomy 1 Description of Procedure Anesthesia Type: Conscious Sedation Specimen(s) collected/removed polyps Description of the Procedure indication for the procedure: This gentleman came in for colonoscopy to evaluate heme-positive stools. Informed consent was obtained after reviewing the procedure in detail. Description of procedure: He was placed in left lateral position and his vital signs were monitored. Conscious sedation was achieved using Versed and fentanyl. Digital rectal examination was unremarkable. The colonoscope was then introduced in the rectum and advanced all the way to the cecum The quality of bowel preparation was acceptable. The scope was then withdrawn slowly and the mucosa examined in a systematic fashion. Findings: 1. 12 mm pedunculated polyp at the proximal ascending colon, that was snared and retrieved 2. A similar polyp adjacent to the previously described polyp, that was snared and retrieved as well. 3. A moderate degree of sigmoid diverticulosis 4. 1 mm polyp at the cecum that was excised with hot biopsy forceps. He tolerated the procedure well and was taken back to the nursing area in a stable condition. Impression: Heme-positive stools. Multiple polyps excised. Recommend surveillance colonoscopy in one year. Copy Copies To 1: MARLIN VILLALTA XAVIER M MD Oct 21, 2017 3:40 pm
--- NOTE | 2017-10-21 15:42 | Discharge Inst-Simple/Standard ---
Discharge Inst-Standard Discharge Medications New, Converted or Re-Newed RX: Other Patient Instructions/Follow Up Plan of Care/Instructions/FU: repeat colonoscopy in one year Activity as Tolerated: Yes Discharge Diet: ADA Diet SHIRA JONES MD Oct 21, 2017 3:42 pm
[2017-10-21] MEDS ORDERED: NS IV 500 ML 500 ML IV ONE (16:00)
[2017-10-21 16:05] VITALS: BP 113/64
[2017-10-21 16:29] VITALS: BP 129/66
[2017-10-21 16:30] VITALS: BP 129/66
== END 2017-10-21 16:33 | disposition home or self-care (01) ==
LOC: ENDO 12:39
PROVIDERS: ATTEND Surgery
DX: D12.4 Benign neoplasm of descending colon (principal); K57.30 Diverticulosis of large intestine without perforation or abscess without bleeding; K51.40 Inflammatory polyps of colon without complications; C34.90 Malignant neoplasm of unspecified part of unspecified bronchus or lung; E11.9 Type 2 diabetes mellitus without complications; J44.9 Chronic obstructive pulmonary disease, unspecified; K59.09 Other constipation; Z92.21 Personal history of antineoplastic chemotherapy; Z92.3 Personal history of irradiation; Z79.82 Long term (current) use of aspirin; Z79.84 Long term (current) use of oral hypoglycemic drugs; Z79.899 Other long term (current) drug therapy; Z87.891 Personal history of nicotine dependence
CPT/HCPCS: 88305

== ENCOUNTER → 2018-01-08 | Outpatient (CLI) | payer MEDICARE ==
[~2018-01-08] MED LIST changes: +METF-399 PO; -METF10002 PO
== END ==
LOC: CARD 09:41
PROVIDERS: ATTEND Internal Medicine Cardiovascular Disease
DX: N18.9 Chronic kidney disease, unspecified (principal); E11.9 Type 2 diabetes mellitus without complications; C34.90 Malignant neoplasm of unspecified part of unspecified bronchus or lung; E78.2 Mixed hyperlipidemia; R00.2 Palpitations; R00.0 Tachycardia, unspecified; C67.9 Malignant neoplasm of bladder, unspecified
CPT/HCPCS: 93306

== ENCOUNTER → 2018-01-11 | Outpatient (CLI) | payer MEDICARE ==
[~2018-01-11] MED LIST changes: +CATHETER FLUSH 10 ML SYR IV PRN; +REGADENOSON 0.4 MG/5 ML SYR (LEXISCAN) IV ONE
[2018-01-11 10:11] VITALS: BP 135/75
[2018-01-11 10:16] VITALS: BP 113/60
--- NOTE | 2018-01-11 12:44 | STRESS TEST ---
DATE OF SERVICE: 01/11/2018 LEXISCAN MYOVIEW STRESS TEST REPORT REFERRING PHYSICIAN: Femi Powell DO. Baseline heart rate is 94. Baseline blood pressure 135/75. Baseline EKG sinus rhythm with no ischemic changes. In summary, the patient was injected with 10.93 mCi of technetium-99 Myoview and the resting images were obtained. Then, the patient received 0.4 mg of Lexiscan followed by 29.9 mCi of technetium-99 Myoview. Throughout the test, there were no EKG changes. The resting and stress images were reviewed and compared in the short axis, horizontal long axis, and vertical long axis views. Review of the images showed diaphragmatic attenuation with mild decreased uptake at the basal to mid inferolateral wall with mild reversibility. SSS is 4, SDS 2, TID value 1.18. On the gated images, the left ventricle appeared to be normal size with normal contractility. Calculated ejection fraction 60%. CONCLUSION: 1. The patient tolerated Lexiscan well. 2. Mild decreased uptake at the basal to mid inferior wall and inferolateral wall with subtle reversibility most probably secondary to diaphragmatic attenuation. 3. Normal left ventricular size with normal contractility. Calculated ejection fraction 60%. Job ID: [id number] DocumentID: [id number] Dictated Date: 01/11/2018 11:54:56 Air Duct Mechanic Date: 01/11/2018 12:44:12 Dictated By: LASHAY LIRA MD
== END ==
LOC: CARD 08:37
PROVIDERS: ATTEND Internal Medicine Cardiovascular Disease
DX: N18.9 Chronic kidney disease, unspecified (principal); E11.22 Type 2 diabetes mellitus with diabetic chronic kidney disease; E78.2 Mixed hyperlipidemia; R00.2 Palpitations; R00.0 Tachycardia, unspecified
CPT/HCPCS: 78452; 93017

== ENCOUNTER 2018-04-08 14:10 | Outpatient (RCR) | payer MEDICARE ==
[~2018-04-08] VITALS: Ht 177.8 cm; Wt 79.4 kg
[~2018-04-08 14:10] MED LIST changes: -CATHETER FLUSH 10 ML SYR IV PRN; -REGADENOSON 0.4 MG/5 ML SYR (LEXISCAN) IV ONE
[2018-04-08 14:15] VITALS: BP 139/67
[2018-04-08] MEDS ORDERED: CATHETER FLUSH 10 ML SYR IV PRN (14:30)
== END 2018-07-07 | disposition home or self-care (01) ==
LOC: SDC 14:10
PROVIDERS: ATTEND Family Medicine
DX: Z45.2 Encounter for adjustment and management of vascular access device (principal)
CPT/HCPCS: 96523

== ENCOUNTER → 2018-07-27 | Outpatient (CLI) | payer MEDICARE ==
[~2018-07-27] VITALS: Ht 177.8 cm; Wt 79.4 kg
[2018-07-27 07:38] VITALS: BP 145/81
[2018-07-27 08:20] LABS: ALBUMIN 3.8 GM/DL (3.2-4.5); BILIRUBIN,TOTAL 0.4 MG/DL (0.1-1.0); CALCIUM 8.8 MG/DL (8.5-10.1); CREATININE SERUM 1.3 MG/DL (0.60-1.30); POTASSIUM 4.3 MMOL/L (3.6-5.0); TOTAL PROTEIN 6.4 GM/DL (6.4-8.2)
--- NOTE | 2018-07-27 12:38 | Diagnostic Imaging Report ---
INDICATION: Back pain starting after chemotherapy and radiation treatment. TECHNIQUE: AP, Lateral and Spot imaging of the lumbar spine CORRELATION STUDY: None FINDINGS: Grade 2 spondylolisthesis L5 on S1, offset of approximately 15 mm. Probable pars articularis defect at the L5 level. The L5 vertebral body overall is somewhat small both in AP and craniocaudal dimensions, particularly posteriorly. There is also marked disc space narrowing with reactive end plate sclerosis at the L5-S1 level. Trace retrolisthesis of L4 on L5. Alignment otherwise anatomic. The remaining lumbar vertebral body heights are maintained. Endplate lipping at multiple levels noted most pronounced at L1-L2 level where there is more prominent disc space narrowing. No elyse bony destructive change is suggested. Aorto iliac stent graft as well as left renal artery stents are present. SI joints with slight sclerosis. IMPRESSION: No radiographic evidence for acute bony abnormality of the lumbar spine. Grade 2 spondylolisthesis of L5 on S1 appearing likely attributed to chronic pars articularis defect. Marked disc space narrowing at this level. Additional airspace changes are present particularly at the L1-L2 level. Dictated by: Dictated on workstation # [id number]
== END ==
LOC: SDC 07:32
PROVIDERS: ATTEND Family Medicine
DX: M54.5 Low back pain (principal); E11.65 Type 2 diabetes mellitus with hyperglycemia; J44.9 Chronic obstructive pulmonary disease, unspecified; C34.90 Malignant neoplasm of unspecified part of unspecified bronchus or lung
CPT/HCPCS: 36415; 36591; 72100; 80053; 83036

== ENCOUNTER 2018-10-13 14:08 | Outpatient (RCR) | payer MEDICARE ==
[~2018-10-13] VITALS: Ht 177.8 cm; Wt 79.4 kg
[2018-10-13 14:35] VITALS: BP 129/90
== END 2019-01-11 | disposition home or self-care (01) ==
LOC: SDC 14:08
PROVIDERS: ATTEND Family Medicine
DX: Z45.2 Encounter for adjustment and management of vascular access device (principal)
CPT/HCPCS: 96523

== ENCOUNTER → 2020-02-13 | Outpatient (CLI) | payer MEDICARE ==
[~2020-02-13] MED LIST changes: +RT-ALBUTEROL SULF 2.5 MG/3 ML PRE-MIX VIAL INH ONE
[2020-02-13 11:46] LABS: ABG BASE EXCESS 7.7 MMOL/L (-2.5-2.5); ABG OXYGEN SATURATION 87 % (94-100); ABG PCO2 53 MMHG (35-45); ABG PO2 54 MMHG (79-93); ABG TCO2 34.4 MMOL/L (21.0-31.0)
[2020-02-13 11:47] LABS: ALLENS TEST YES-POS; INSPIRED O2 ROOM AIR; PATIENT TEMP 36.3; VENTILATOR NO
--- NOTE | 2020-02-13 14:04 | Diagnostic Imaging Report ---
PROCEDURE: CT chest without contrast. TECHNIQUE: Multiple contiguous axial images were obtained through the chest without the use of intravenous contrast. Auto Exposure Controls were utilized during the CT exam to meet ALARA standards for radiation dose reduction. INDICATION: COPD, shortness of breath, hypoxemia, chronic kidney disease, and history of lung cancer. COMPARISON: 05/29/2016. FINDINGS: The previously seen nodule in the lingula is no longer visualized. There is some focal scarring in this region. There is also left basilar scarring. There is no pleural effusion. There is a pericardial effusion. The heart size is normal. There are extensive coronary artery calcifications. There is no pathologically enlarged adenopathy in the chest. There is emphysema. There is no pneumothorax. The visualized intra-abdominal structures are unremarkable. There are mild degenerative changes in the spine. IMPRESSION: Presumed post-therapeutic changes in the lingula where there is some residual scarring; however, the previously seen mass is no longer appreciated. There is also minimal scarring in the left lung base. Small pericardial effusion. Extensive coronary artery calcification. Dictated by: Dictated on workstation # [id number]
== END ==
LOC: RT 10:30
PROVIDERS: ATTEND Internal Medicine Critical Care Medicine
DX: C34.90 Malignant neoplasm of unspecified part of unspecified bronchus or lung (principal); J44.9 Chronic obstructive pulmonary disease, unspecified; N18.9 Chronic kidney disease, unspecified; J98.4 Other disorders of lung
CPT/HCPCS: 36600; 71250; 82805; 94060; 94726; 94729

== ENCOUNTER → 2020-02-22 | Outpatient (CLI) | payer MEDICARE ==
[~2020-02-22] VITALS: Ht 175 cm; Wt 73.0 kg
[~2020-02-22] MED LIST changes: +REGADENOSON 0.4 MG/5 ML SYR (LEXISCAN) IV ONE; -RT-ALBUTEROL SULF 2.5 MG/3 ML PRE-MIX VIAL INH ONE
[2020-02-22] MEDS: CATHETER FLUSH 10 ML SYR IV PRN ×2 (12:21→13:34)
[2020-02-22 13:33] VITALS: BP 151/81
--- NOTE | 2020-02-22 16:09 | Cardiology Stress Test Report ---
Stress Test Report Date of Procedure/Referring: Date of Procedure: Feb 22, 2020 Charlotte Medrano Admitting Physician Femi Powell DO Indications: Diabetes, hypertension Baseline Heart Rate: 96 Baseline Blood Pressure: Blood Pressure Systolic: 151 Blood Pressure Diastolic: 81 Baseline Vitals Vital Signs Date Time Temp Pulse Resp B/P (MAP) Pulse Ox O2 Delivery O2 Flow Rate FiO2 02/22/20 13:33 96 14 151/81 (104) 98 Room Air Baseline EKG: Baseline EKG: normal sinus rhythm Summary After explaining the procedure to the patient, he signed a consent and then brought to the stress nuclear laboratory. Patient received 0.4 mg Lexiscan for stress test, ECG, heart rate and blood pressure were monitored continuously. Resting and stress dose of radio tracer were injected, imaging was acquired and reviewed in short axis, horizontal long axis and vertical long axis views. TID: 1.09 SSS: 9 SDS: 3 EF: 52 1. Patient tolerated Lexiscan well 2. Diaphragmatic attenuation with decreased uptake involving the mid to apical inferior wall and inferolateral wall with mild reversibility 3. Normal left ventricular size, EF 52 percent LASHAY LIRA MD Feb 22, 2020 16:09
== END ==
LOC: CARD 12:00
PROVIDERS: ATTEND Physician Assistant
DX: E11.9 Type 2 diabetes mellitus without complications (principal); E78.2 Mixed hyperlipidemia; R00.2 Palpitations; R00.0 Tachycardia, unspecified
CPT/HCPCS: 78452; 93017; 93306; A9502

== ENCOUNTER 2020-02-27 10:00 | Day surgery (SDC) | payer MEDICARE ==
[~2020-02-27] VITALS: Ht 175 cm; Wt 75.0 kg
[2020-02-27] VITALS (13 sets, daily range): BP systolic 128–171; BP diastolic 77–99
[2020-02-27 08:50] LABS: BILIRUBIN,URINE NEGATIVE (NEGATIVE); CLARITY,URINE CLEAR; COLOR,URINE YELLOW; GLUCOSE, URINE (UA) NEGATIVE (NEGATIVE); KETONES,URINE NEGATIVE (NEGATIVE); LEUKOCYTE ESTERASE ,URINE NEGATIVE (NEGATIVE); NITRITE,URINE NEGATIVE (NEGATIVE); PROTEIN,URINE 1+ (NEGATIVE)
[2020-02-27 08:51] LABS: HEMOGLOBIN 16.6 g/dL (13.3-17.7); MEAN PLATELET VOLUME 9.7 fL (9.0-12.2); WHITE BLOOD COUNT 8.8 10^3/uL (4.3-11.0)
--- NOTE | 2020-02-27 08:54 | Diagnostic Imaging Report ---
EXAMINATION: Chest radiograph, portable AP view. DATE: 02/27/2020 8:50 AM. INDICATION: 75-year-old male, preoperative exam prior to heart catheterization. COMPARISON: November 08, 2007. CT chest February 13, 2020. FINDINGS: There is elevation of the left hemidiaphragm. The heart size and mediastinal contours are unremarkable. There is no identified pneumothorax. There is no large pleural effusion. There is no identified focal airspace consolidation. IMPRESSION: No identified acute cardiopulmonary abnormality. Dictated by: Dictated on workstation # [id number]
[2020-02-27 08:57] LABS: BACTERIA,URINE NEGATIVE /HPF
[2020-02-27 09:01] LABS: PROTHROMBIN TIME PATIENT 13.6 SEC (12.2-14.7)
[2020-02-27 09:10] LABS: ALBUMIN 4.2 GM/DL (3.2-4.5); BILIRUBIN,TOTAL 0.6 MG/DL (0.1-1.0); CALCIUM 9.4 MG/DL (8.5-10.1); CREATININE SERUM 1.37 MG/DL (0.60-1.30); POTASSIUM 4.1 MMOL/L (3.6-5.0); TOTAL PROTEIN 7.1 GM/DL (6.4-8.2)
--- NOTE | 2020-02-27 09:36 | Cardiac Procedure Note-CS/ASA ---
Pre-Procedure Note Pre-Op Procedure Note H&P Reviewed The H&P was reviewed, patient examined and no changes noted. Date H&P Reviewed: Feb 27, 2020 Time H&P Reviewed: 09:36 Conscious Sedation Pre-Proced Time 09:36 ASA Score 3 For ASA 3 and 4: Consider anesthesia and medical clearance. Also, for patients with a history of failed moderate sedation consider anesthesia. Airway Lungs Heart ASA score ASA 1: a normal healthy patient ASA 2: a patient with a mild systemic disease (mid diabetes, controlled hypertension, obesity x ASA 3: a patient with a severe systemic disease that limits activity (angina, COPD, prior Myocardial infarction) ASA 4: a patient with an incapacitating disease that is a constant threat to life (CHF, renal failure) ASA 5: a moribund patient not expected to survive 24 hrs. (ruptured aneurysm) ASA 6: a declared brain- patient whose organs are being harvested. For emergent operations, add the letter E after the classification Mallampati Classification Grade 3 Sedation Plan Analgesia, Amnesia, Plan communicated to team members, Discussed options with patient/fam, Discussed risks with patient/fam The patient is an appropriate candidate to undergo the planned procedure, sedation, and anesthesia. The patient immediately re-assessed prior to indication. LASHAY LIRA MD Feb 27, 2020 09:36
[~2020-02-27 10:00] MED LIST changes: +ASPI-999 PO; +CHOL50005 PO; +DILT300C52 PO; +GABA300S2 PO; +HEParin (CATH LAB) 2,000 ML IV ONE; +INSU100V16 SQ; +INSU100V5 SQ; +LIDOCAINE 1% INJ 20 ML 20 ML VIAL ONE; +MIDAZOLAM 5 MG/5 ML (VERSED) VIAL ONE; +NS IV 1000 ML 1,000 ML IV SCH; +NS IV 1000 ML 1,000 ML ONE; +OMEG1CAP24 PO; -REGADENOSON 0.4 MG/5 ML SYR (LEXISCAN) IV ONE; +fentaNYL INJECTION 100 MCG/2 ML AMP ONE
--- NOTE | 2020-02-27 10:23 | Cardiac Cath Report ---
Cardiac Cath Report Physician (s)/Carpenter Assembler (s) Physician LASHAY LIRA MD Pre-Procedure Diagnosis Pre-Procedure Diagnosis: coronary artery disease Post-Procedure Note Procedure Start Date: Feb 27, 2020 Name of Procedure: Left heart catheterization Abdominal aortogram Findings/Procedure Note PROCEDURE NOTE: 75 years old gentleman with extensive history of peripheral arterial disease, has history of bladder cancer and recurrence C, was scheduled for surgery, had an abnormal stress test, I decided to proceed with elective diagnostic cardiac catheterization without intervention for risk stratification for his planned surgery. After explaining the procedure to the patient, all pros and cons were explained, all questions were answered. The patient signed the consent and then he was placed on the cardiac catheterization laboratory. Groin was prepped SL fashion local anesthesia was used. I was able to access the right femoral artery without the ability to advance a wire through the right femoral artery manual pressure applied then I access the left femoral artery, I advanced a stork wire with difficulty through the left femoral and iliac artery then placed 6 Trin[place] sheath. Then advanced Idris right catheter to the right coronary artery and angiogram was done exchange over long stork wire to Idris left catheter and advanced to the left coronary system. The catheter was exchanged through a stork wire to pigtail catheter and it was advanced to the left ventricular cavity no left ventriculogram was done to limit the amount of exposure to contrast, pressure was measured pullback LV to aorta was done. Pressure was measured then I placed the pigtail catheter in the abdominal aorta just above the stent in the abdominal aorta and angiogram was done At the end of the procedure the sheath was removed. Manual pressure applied FINDINGS: Hemodynamics LV 105/12, end-diastolic pressure of 12 Aorta 114/59 mean of 60 ANATOMY: Left Main is calcified with nonobstructive disease Left Anterior Descending is heavily calcified with 70 percent stenosis proximally, one segment of 90 percent stenosis in the proximal portion otherwise mild disease diffusely Left Circumflex is mildly calcified with nonobstructive disease Right Coronory Artery is heavily calcified artery with 50-60 percent stenosis in the midportion nonobstructive disease LV Gram was not done pressure was measured Aorta evaluation done with abdominal aortogram showing patent abdominal aortic stent extending into the right common iliac artery, the right renal artery has a stent with moderate to severe stenosis, the left renal artery has mild disease, SMA has a small stent with severe stenosis, has infrarenal abdominal aortic aneurysm covered with the stent, total occlusion of the right external iliac artery, heavily calcified left external iliac and common femoral with diffuse moderate to severe stenosis CONCLUSION: 1. Severe coronary artery disease with heavily calcified coronary system, 70 percent long segment proximal LAD stenosis, one area of 90 percent stenosis, heavily calcified right coronary artery with 50-60 percent stenosis in the midportion 2. Normal left ventricular end-diastolic pressure 3. Abdominal aortic aneurysm covered with the stent extending into the right side, total occlusion of the right external iliac, heavily calcified left external iliac and left common femoral with moderate severe disease 4. Moderate to severe in-stent stenosis in the right renal artery 5. Small stent in the superior mesenteric artery with moderate to severe stenosis 6. Mild disease in the left renal artery DISCUSSION AND RECOMMENDATION: Patient has extensive coronary artery disease, he is considered high risk intervention and would require to be on dual antiplatelet therapy for 3-6 months after stent deployment, I will refer him back for vascular surgery evaluation regarding his extensive peripheral arterial disease. Regarding his planned procedure for the metastatic bladder cancer, patient is considered at high risk for perioperative cardiovascular complication, decision regarding the procedure, risk versus benefit is deferred to the surgeon Anesthesia Type: Conscious Sedation Estimated blood loss (mL): 35 ml Contrast Amount: 39 ml Total Radiation Dose: 427 mGy Post-Procedure Diagnosis Post-operative diagnosis: Coronary artery disease Peripheral arterial disease Hypertension Hyperlipidemia LASHAY LIRA MD Feb 27, 2020 10:23
[2020-02-27] MEDS ORDERED: NS IV 1000 ML 1,000 ML IV SCH (10:24)
[2020-02-27] MEDS ORDERED: METF-399 PO (10:26)
--- NOTE | 2020-02-27 10:26 | Discharge Inst-Post CATH ---
Discharge Inst-CATH/EP Problems Reviewed?: Yes Post Cardiac Cath/EP D/C Inst Follow Up/Plan Hold metformin for [address] Rdz's office in 2-4 weeks <b>CARDIAC CATH/EP PROCEDURE DISCHARGE INSTRUCTIONS</b> ACTIVITY * Go Home directly and rest. * Limit activity of the leg (or wrist if it was used) for 7 days including aerobics, swimming, jogging, bicycling, etc. * Restrict stair-climbing for 7 days if possible, if not, climb up with your non-cath leg, then bring together on the same step. * Avoid lifting, pushing, pulling or excessive movement of the affected extremity for 7 days. * Customary sexual activity may be resumed after 2 days-use caution not to use a position that strains or causes pain to the affected extremity. * No driving for 24 hours. * NO SMOKING. * Avoid straining for bowel movements for 7 days. * Gentle walking on level ground is allowed. * Returning to work will depend on the type of procedure and the results. Your doctor will discuss this with you. CALL YOUR DOCTOR FOR ANY OF THE FOLLOWING: *If bleeding from the puncture site occurs- Apply gentle pressure to site with clean cloth and call your doctor or EMS. * If a knot or lump forms under the skin, increases in size, or causes pain. * If bruising appears to be worsening or moving further down your leg instead of disappearing. * Temperature above 101 F. CARE OF YOUR GROIN INCISION; * Bruising or purple discoloration of the skin near the puncture site is common. * You may shower only, no bathtub bathing for 5 days. Be careful to avoid slipping as your leg may feel stiff. * If a closure device was used on your femoral artery, please see the attached guide regarding care of the device and your leg. * Leave dressing on FOR 24 hours. CARE OF YOUR WRIST INCISION; * Bruising or purple discoloration of the skin near the puncture site is common. * You may shower. * DO NOT submerge wrist. * Leave dressing on FOR 24 hours. LASHAY RDZ MD Feb 27, 2020 10:26
[2020-02-27] MEDS ORDERED: PATIENT MAY USE OWN MEDS, ALL PO SCH (10:30)
== END 2020-02-27 15:40 | disposition home or self-care (01) ==
LOC: CATH 10:00 → SDC 10:38 → CATH 15:40
PROVIDERS: ATTEND Internal Medicine Cardiovascular Disease
DX: I25.10 Atherosclerotic heart disease of native coronary artery without angina pectoris (principal); I73.9 Peripheral vascular disease, unspecified; I10 Essential (primary) hypertension; E78.2 Mixed hyperlipidemia; E11.9 Type 2 diabetes mellitus without complications; R00.2 Palpitations; J44.9 Chronic obstructive pulmonary disease, unspecified; N18.9 Chronic kidney disease, unspecified; I65.23 Occlusion and stenosis of bilateral carotid arteries; R00.0 Tachycardia, unspecified; R20.0 Anesthesia of skin; Z92.21 Personal history of antineoplastic chemotherapy; Z87.891 Personal history of nicotine dependence; Z85.51 Personal history of malignant neoplasm of bladder; Z85.118 Personal history of other malignant neoplasm of bronchus and lung; Z92.3 Personal history of irradiation; Z79.82 Long term (current) use of aspirin; Z79.899 Other long term (current) drug therapy; Z79.4 Long term (current) use of insulin
CPT/HCPCS: 71045; 75625; 80053; 80061; 81000; 82962; 85027; 85610; 85730; 87081; 93458; C1769; C1894; 36415

== ENCOUNTER → 2020-07-28 | Outpatient (CLI) | payer OTHER, MEDICARE ==
[~2020-07-28] MED LIST changes: -HEParin (CATH LAB) 2,000 ML IV ONE; -LIDOCAINE 1% INJ 20 ML 20 ML VIAL ONE; -MIDAZOLAM 5 MG/5 ML (VERSED) VIAL ONE; -NS IV 1000 ML 1,000 ML IV SCH; -NS IV 1000 ML 1,000 ML ONE; -fentaNYL INJECTION 100 MCG/2 ML AMP ONE
== END ==
LOC: GIR 11:43
PROVIDERS: ATTEND Family Medicine
DX: Z01.89 Encounter for other specified special examinations (principal)
CPT/HCPCS: 84145

== ENCOUNTER 2020-10-08 05:34 | Outpatient (CLI) | payer MEDICARE ==
[~2020-10-08] VITALS: Ht 175.3 cm; Wt 73.9 kg
[2020-10-08] MEDS ORDERED: TMSL.4C PO (14:26)
== END 2020-10-08 14:45 | disposition home or self-care (01) ==
LOC: PREOP 05:34
PROVIDERS: ATTEND Surgery
DX: Z01.818 Encounter for other preprocedural examination (principal)

== ENCOUNTER 2020-10-15 08:13 | Day surgery (SDC) | payer MEDICARE ==
[~2020-10-15] VITALS: Ht 175.3 cm; Wt 73.9 kg
[~2020-10-15 08:13] MED LIST changes: +MIRT-68 PO; -MIRT15TA6 PO; +TMSL.4C PO
[2020-10-15 08:18] VITALS: BP 160/96
[2020-10-15] MEDS ORDERED: LACTATED RINGERS 1,000 ML IV SCH (08:45)
[2020-10-15] MEDS ORDERED: MIDAZOLAM 2 MG/2 ML (VERSED) VIAL ONE (09:17)
[2020-10-15] MEDS ORDERED: PROPOFOL INJECTION 50 ML IV ONE (09:17)
[2020-10-15 09:45] VITALS: BP 124/59
[2020-10-15 09:50] VITALS: BP 156/85
[2020-10-15 09:55] VITALS: BP 141/69
--- NOTE | 2020-10-15 09:56 | Progress Note-Post Operative ---
Post-Operative Progess Note Surgeon (s)/Dross Skimmer (s) Surgeon LEIGH TAYLOR DO Dross Skimmer: none Pre-Operative Diagnosis screening colon, constipation Post-Operative Diagnosis Poor prep Diverticula int hemorrhoids Procedure & Operative Findings Date of Procedure 10/15/20 Procedure Performed/Findings After informed consent was obtained, the patient was brought to the endoscopy suite and placed in the bed in the left lateral decubitus position. He was administered IV sedation by the [employer] BOX TENDER, who then monitored him vitals the entire time, heart rate, blood pressure and pulse ox and the scope was inserted, started with the colonoscopy. Unfortunately, as soon as I put the scope in there was fully formed fecal material seen. Able to push past this, but there was a lot of feculent fluid with large pieces. Pushed all the way into about 140 cm; only able to get to the ascending colon; took a picture of all of the retained fecal material and elected to stop because I would not be able to visualize all of the colon. Slowly withdrew the scope, insufflating to look circumferentially at the vela looking at the ascending colon to the hepatic flexure, then down the transverse colon, splenic flexure, into the descending colon, down into the sigmoid and finally into the rectum. I saw some diverticula and took pictures of them; they were in descending colon and sigmoid. Into the rectal vault and then saw some minimal internal hemorrhoids on the way out and took a picture of this. The patient tolerated the procedure and he recovered in the endoscopy suite. He will need repeat in 6-8 weeks with probably a 2 day prep. Anesthesia Type IV sedation by AM[employer]IA BOX TENDER Estimated Blood Loss Estimated blood loss (mL): none Specimens/Packing Specimens Removed none LEIGH TAYLOR DO Oct 15, 2020 09:56
--- NOTE | 2020-10-15 09:57 | Endoscopy Discharge Instruct ---
Endo Procedure/Findings Findings 1.: Other Findings (Poor Prep) 2.: Diverticulosis 3.: Internal Hemorrhoids Discharge Instructions - Activity: You might feel a little sleepy until tomorrow. This is due to the medicine you received to relax you. Until tomorrow, you should: NOT drive a car, operate machinery or power tools. NOT drink any alcoholic beverages. NOT make any important decisions or sign importortant papers. Do not return to work until tomorrow, unless otherwise instructed. Resume previous activities tomorrow. Diet: Start by taking liquids. If you tolerate liquids, advance to solid food. 1.: Other Recommendation (Colonoscopy in 6-8 weeks) Notify Physician - If you experience excessive bleeding, unusual abdominal pain, fever, or chest pain, contact your doctor immediately. LEIGH TAYLOR DO Oct 15, 2020 09:57
[2020-10-15 10:00] VITALS: BP 141/69
--- NOTE | 2020-10-15 10:34 | Anesthesia-General Post-Op ---
MAC Patient Condition Mental Status/LOC: Same as Preop Cardiovascular: Satisfactory Nausea/Vomiting: Absent Respiratory: Satisfactory Pain: Controlled Complications: Absent Post Op Complications Complications None Follow Up Care/Instructions Patient Instructions None needed. Anesthesiology Discharge Order Discharge Order Patient is doing well, no complaints, stable vital signs, no apparent adverse anesthesia problems. NACHO YEBOAH DO Oct 15, 2020 10:34
[2020-10-15 10:36] VITALS: BP 162/94
== END 2020-10-15 10:46 | disposition home or self-care (01) ==
LOC: ENDO 08:13
PROVIDERS: ATTEND Surgery
DX: K59.00 Constipation, unspecified (principal); K57.30 Diverticulosis of large intestine without perforation or abscess without bleeding; K64.8 Other hemorrhoids; J44.9 Chronic obstructive pulmonary disease, unspecified; E78.2 Mixed hyperlipidemia; E11.22 Type 2 diabetes mellitus with diabetic chronic kidney disease; Z79.51 Long term (current) use of inhaled steroids; Z79.4 Long term (current) use of insulin; Z79.899 Other long term (current) drug therapy; Z79.02 Long term (current) use of antithrombotics/antiplatelets; Z87.891 Personal history of nicotine dependence
CPT/HCPCS: 82947

== ENCOUNTER → 2020-11-06 | Outpatient (CLI) | payer MEDICARE ==
--- NOTE | 2020-11-06 13:22 | Diagnostic Imaging Report ---
EXAMINATION: Chest 2 views. HISTORY: Lung cancer and shortness of breath. COMPARISON: 02/27/2020 FINDINGS: There is a new small right pleural effusion. There is mild volume loss in the left hemithorax. No pneumothorax. No edema or pneumonia. Heart size is normal. IMPRESSION: 1. New small right pleural effusion. Dictated by: Dictated on workstation # [id number]
== END ==
LOC: RAD 12:52
PROVIDERS: ATTEND Family Medicine
DX: J90 Pleural effusion, not elsewhere classified (principal); J44.9 Chronic obstructive pulmonary disease, unspecified; Z85.118 Personal history of other malignant neoplasm of bronchus and lung
CPT/HCPCS: 71046

== ENCOUNTER 2020-11-12 06:06 | Outpatient (CLI) | payer MEDICARE ==
[~2020-11-12] VITALS: Ht 175.3 cm; Wt 73.9 kg
[2020-11-12] MEDS ORDERED: TMSL.4C PO (14:47)
[2020-11-12] MEDS ORDERED: GLYC10.7 IH (14:49)
[2020-11-12] MEDS ORDERED: FURO40TA4 PO (14:49)
== END 2020-11-12 15:15 | disposition home or self-care (01) ==
LOC: PREOP 06:06
PROVIDERS: ATTEND Surgery
DX: Z01.818 Encounter for other preprocedural examination (principal)

== ENCOUNTER → 2020-11-15 | Outpatient (CLI) | payer MEDICARE ==
[~2020-11-15] MED LIST changes: +FURO40TA4 PO; +GLYC10.7 IH
--- NOTE | 2020-11-15 11:07 | Diagnostic Imaging Report ---
INDICATION: Abdominal aortic aneurysm Proximal aorta measures 2.4 cm in greatest outside dimension. The mid aorta measures 2.3 cm in greatest outside dimension. The distal aorta measures 3.5 cm in greatest outside dimension. Iliac arteries measure 13 mm. The aorta is widely patent with normal velocities and waveforms. There is no stenosis or dissection. There is fusiform dilatation of the infrarenal aorta which measures 3.5 cm. IMPRESSION: There is a 3.5 cm infrarenal abdominal aortic aneurysm with no other abnormality seen. Dictated by: Dictated on workstation # [id number]
== END ==
LOC: RAD 10:00
PROVIDERS: ATTEND Family Medicine
DX: I71.4 Abdominal aortic aneurysm, without rupture (principal)
CPT/HCPCS: 76775

== ENCOUNTER 2020-11-19 10:33 | Day surgery (SDC) | payer MEDICARE ==
[~2020-11-19] VITALS: Ht 175 cm; Wt 73.9 kg
[2020-11-19] VITALS (7 sets, daily range): BP systolic 99–141; BP diastolic 57–89
[2020-11-19] MEDS ORDERED: LACTATED RINGERS 1,000 ML IV STA (10:38)
[2020-11-19] MEDS ORDERED: LACTATED RINGERS 1,000 ML IV ONE (10:48)
[2020-11-19] MEDS ORDERED: PROPOFOL INJECTION 50 ML IV ONE (11:59)
[2020-11-19] MEDS ORDERED: MIDAZOLAM 2 MG/2 ML (VERSED) VIAL ONE (11:59)
--- NOTE | 2020-11-19 12:01 | Progress Note-Pre Operative ---
Pre-Operative Progress Note H&P Reviewed The H&P was reviewed, patient examined and no changes noted. Time Seen by Provider: 11:59 Date H&P Reviewed: Nov 19, 2020 Time H&P Reviewed: 11:59 Pre-Operative Diagnosis: Screening colon, constipation LEIGH TAYLOR DO Nov 19, 2020 12:01
--- NOTE | 2020-11-19 12:51 | Endoscopy Discharge Instruct ---
Endo Procedure/Findings Findings 1.: Polyp 2.: Diverticulosis 3.: Internal Hemorrhoids Discharge Instructions - Activity: You might feel a little sleepy until tomorrow. This is due to the medicine you received to relax you. Until tomorrow, you should: NOT drive a car, operate machinery or power tools. NOT drink any alcoholic beverages. NOT make any important decisions or sign importortant papers. Do not return to work until tomorrow, unless otherwise instructed. Resume previous activities tomorrow. Diet: Start by taking liquids. If you tolerate liquids, advance to solid food. 1.: Colonoscopy in 1 year Notify Physician - If you experience excessive bleeding, unusual abdominal pain, fever, or chest pain, contact your doctor immediately. LEIGH TAYLOR DO Nov 19, 2020 12:51
--- NOTE | 2020-11-19 12:51 | Progress Note-Post Operative ---
Post-Operative Progess Note Surgeon (s)/Satellite Technician (s) Surgeon LEIGH TAYLOR DO Satellite Technician: none Pre-Operative Diagnosis Screening colon, constipation Post-Operative Diagnosis Colon polyps diverticula int hemorrhoids Procedure & Operative Findings Date of Procedure 11/19/20 Procedure Performed/Findings Colonoscopy with snare polypectomy Colonoscopy with hot bx PROCEDURE NOTE: After informed consent was obtained, the patient was brought to the endoscopy suite, placed in bed in left lateral decubitus position. He was administered IV sedation by the [employer] HEAD FORMER who then monitored his vitals the entire time, heart rate, blood pressure and pulse ox and the scope was inserted, pushed in to the Descending colon and saw a small flat poyp; elected to do a hot biopsy to remove it. Also noted some diverticula and took pictures. Then pushed all the way to the Ascending colon just outside cecum and saw a large polyp; kind of tucked around corner on fold. Elected to do snare polypectomy and got four good pieces but not able to remove all of it. I also noted 3 other polyps around here an in the cecum. The scope was about 150 cm to get to the cecum, noted the appendiceal orifice and then slowly withdrew the scope insufflating the circumferential vela looking the cecum, up the ascending colon to the hepatic flexure, then down the transverse colon, splenic flexure, into the descending colon down in the sigmoid and then into the rectal vault and retroflexed the scope. Took picture of the internal hemorrhoids. The patient tolerated the procedure. He was recovered in endoscopy suite. Anesthesia Type IV sedation by [employer] FORMER Estimated Blood Loss Estimated blood loss (mL): scant Specimens/Packing Specimens Removed desc colon polyp asc colon polyp LEIGH TAYLOR DO Nov 19, 2020 12:51
--- NOTE | 2020-11-19 13:15 | Anesthesia-General Post-Op ---
MAC Patient Condition Mental Status/LOC: Same as Preop Cardiovascular: Satisfactory Nausea/Vomiting: Absent Respiratory: Satisfactory Pain: Controlled Complications: Absent Post Op Complications Complications None Follow Up Care/Instructions Patient Instructions None needed. Anesthesiology Discharge Order Discharge Order Patient is doing well, no complaints, stable vital signs, no apparent adverse anesthesia problems. No complications reported per nursing. LIZ NARANJO CRNA Nov 19, 2020 13:15
== END 2020-11-19 14:15 | disposition home or self-care (01) ==
LOC: ENDO 10:33
PROVIDERS: ATTEND Surgery
DX: D12.4 Benign neoplasm of descending colon (principal); D12.2 Benign neoplasm of ascending colon; K57.30 Diverticulosis of large intestine without perforation or abscess without bleeding; K64.8 Other hemorrhoids; K59.09 Other constipation; J44.9 Chronic obstructive pulmonary disease, unspecified; E11.40 Type 2 diabetes mellitus with diabetic neuropathy, unspecified; Z79.51 Long term (current) use of inhaled steroids; E78.2 Mixed hyperlipidemia; E11.22 Type 2 diabetes mellitus with diabetic chronic kidney disease; N18.9 Chronic kidney disease, unspecified; Z79.899 Other long term (current) drug therapy; Z79.02 Long term (current) use of antithrombotics/antiplatelets; Z85.118 Personal history of other malignant neoplasm of bronchus and lung; Z85.51 Personal history of malignant neoplasm of bladder; Z87.891 Personal history of nicotine dependence
CPT/HCPCS: 82947; 88305

== ENCOUNTER 2022-01-25 19:21 | Inpatient (IN) | payer MEDICARE ==
[~2022-01-25] VITALS: Ht 182.9 cm; Wt 84.1 kg
[2022-01-25 22:21] VITALS: BP 161/81
[2022-01-25] MEDS ORDERED: diphenhydrAMINE 50 MG/ML INJ (BENADRYL) IVP PRN (22:30)
[2022-01-25] MEDS ORDERED: DexMEDEtomidine 250 ML DRIP 250 ML IV SCH (22:30)
[2022-01-25] MEDS ORDERED: BISACODYL 10 MG SUPP (DULCOLAX) PR PRN (22:30)
[2022-01-25] MEDS ORDERED: NS IV 500 ML 500 ML IV PRN (22:30)
[2022-01-25] MEDS ORDERED: ONDANSETRON 4 MG/2 ML (SDV) Z0FRAN IV PRN (22:30)
--- NOTE | 2022-01-25 22:33 | History & Physical ---
History of Present Illness HPI/Chief Complaint CC: Respiratory failure HPI: This is a 77yoWM clinic patient of Dr Powell known to me from past [facility] hospital stay of which he required intubation due to respiratory failure from new onset lung cancer who now is being transferred to [facility] due to lack of available beds for higher level of care due to intubation required for respiratory failure from [facility] facility acquired with white out on left lung field thought to be from mucous plugging so Dr Smyth was consulted and he will evaluate the need for a bronchoscopy tomorrow. Patient has a recent diagnosis of bladder cancer also managed by and the below records have been copied and pasted into this note. Patient has a h/o CKD with baseline creat 2.5. 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 Patient had originally been admitted on Thursday afternoon to [facility] due to multiple falls at home and could not get up and required supportive care after admit for pain sustained in the falls due to contusions but today although his labs remained stable he began having N/V and required gentle IVF but overload seemed to occur quickly and decline noted so multiple phone calls to son all afternoon to update on his declined status ultimately required proceeding on with elective intubation and moving to [facility]. Patient really is a hospice candidate and although his son Faraz stated the family would not want him intubated again due to poor prognosis they once again requested intubation instead of comfort care which would be in his best interest considering his cancer diagnosis and bladder cancer and severe COPD 6L/min O2 baseline requirement with recent lung mass biopsy at . records copied and pasted: Progress Note Reason for Pulmonary Procedure: VERAN guided biopsy/EBUS Impression: Nhan Galeano is a 76 y.o. male with a past medical history significant for limited SCLC status post chemoradiation in 2017, COPD, prior smoking, chronic hypoxemic respiratory failure and bladder/penile cancer who is presenting for further evaluation of an enlarging left upper lobe nodular consolidation with increasing PET avidity. #Left upper lobe 3.1 x 2.0 cm nodular consolidation, SUV 13.2 on PET/CT #History of limited stage SCLC #COPD #History of smoking #Chronic hypoxemic respiratory failure Unfortunately has had an increased risk from a pulmonary standpoint given his advanced COPD and hypoxemia at baseline. Additionally at an increased risk from a cardiac standpoint given history of CAD. Discussed with cardiology and would not be a candidate for further revascularization interventions at this point. Discussed with the patient's family and after extensively weighing the risks/benefits they wish to proceed in order to hopefully provide definitive diagnosis and guide treatment. Recommendation: We will proceed with navigational bronchoscopy, transbronchial biopsy and EBUS today Patient was seen and discussed w/ Dr. Galeana. Please see his/her attestation for updates to recommendations. Dalton Norman MD PGY-4, Pulmonary Disease & Critical Care Medicine Contact via Voalte History of Present Illness: Nhan Galeano is a 76 y.o. male with a past medical history significant for limited SCLC status post chemoradiation in 2017, COPD, prior smoking, chronic hypoxemic respiratory failure, CAD and bladder/penile cancer who is presenting for further evaluation of an enlarging left upper lobe nodular consolidation. Repeat CT imaging on 12/04/2021 demonstrated a 3.1 x 2.0 cm left upper lobe nodular consolidation (previously 1.8 x 0.6 cm) with postradiation surrounding changes. PET CT was obtained on 12/17/2021 and demonstrated an SUV of 13.2 at the site of this enlarging lesion (previously SUV of 9.8). Interventional pulmonology was consulted for navigational guided biopsy of this lesion along with EBUS. As part of his preoperative evaluation it was noted that the patient had a history of extensive CAD and was at an increased risk for perioperative major adverse cardiac events based on anesthesia's assessment. Discussed extensively with patient and family. After weighing the risks and benefits they wish to proceed with VERAN/EBUS to pursue aggressive treatment for his possible SCLC recurrence. Review of Systems: Constitutional: No fever, no chills, no weight loss. HEENT: No sinus tenderness, no PND, no headaches. CV: No chest pain, no palpitations, no LE swelling. RESP: As per HPI. ABD: No diarrhea, no constipation, no abdominal pain. Skin: No rash, no wounds. MSK: No joint arthralgias, no joint swelling. Heme: No bleeding, no unilateral leg/arm swelling. : No dysuria, no hematuria. Neuro: No weakness, no tingling, no headache, no change in vision. Lymph: No lymphadenopathy. Psych: Mood is stable. Past Medical History: Medical History: Diagnosis Date Arthritis hips, ankles, shoulders Bladder cancer (HCC) Chronic constipation Coronary artery disease DM (diabetes mellitus) (HCC) Erectile dysfunction History of dental problems upper and lower dentures History of radiation therapy Hyperlipidemia Lung cancer (HCC) Lung nodule On supplemental oxygen therapy Penile cancer (HCC) S/P AAA repair Urethral stricture Urinary tract infection Past Surgical History: Surgical History: Procedure Laterality Date ABDOMINAL EXPLORATION SURGERY 1993 Post arely COLONOSCOPY 2002 AAA REPAIR 2006 EXCISION OF PENILE LESION N/A 12/07/2015 Performed by Ngoc Mccarthy MD at [facility] OR Navigational bronchoscopy to BLAS nodule; EBUS for mediastinal staging. N/A 06/26/2016 Performed by Nick Rizzo MD at [facility] END[facility] BRONCHOSCOPY WITH ULTRASOUND 06/26/2016 Performed by Nick Rizzo MD at [facility] C02 LASER ABLATION OF PENIS N/A 07/21/2016 Performed by Ngoc Mccarthy MD at [facility] OR BIOPSY OF PENIS, EXISION OF LESION N/A 01/13/2018 Performed by Lambert Zuleta MD at [facility] OR CYSTOSCOPY FLEXIBLE,TRANSURETHRAL RESECTION OF BLADDER TUMOR N/A 01/13/2018 Performed by Lambert Zuleta MD at [facility] OR CYSTOURETHROSCOPY WITH FULGURATION/ RESECTION BLADDER TUMOR -SMALL - 0.5 CM - 2.0 CM N/A 12/19/2020 Performed by Lambert Zuleta MD at [facility] OR BLADDER TUMOR EXCISION 2007, 2014 COLONOSCOPY 2020 HX CHOLECYSTECTOMY HX VASECTOMY Social History: Social History Socioeconomic History Marital status: Tobacco Use Smoking status: Former Smoker Packs/day: 2.50 Years: 50.00 Pack years: 125.00 Types: Cigarettes Quit date: 12/13/2015 Years since quittin.0 Smokeless tobacco: Never Used Vaping Use Vaping Use: Never used Substance and Sexual Activity Alcohol use: No Alcohol/week: 0.0 standard drinks Comment: Quit drinking 09/2014 Drug use: No Sexual activity: Not Currently Partners: Female Family History: Family History Problem Relation Age of Onset Hip Fracture Mother Stroke Father Drug Abuse Brother Allergies: Fluorouracil and Glipizide Medications Prior to Admission Medication Sig Dispense Refill Last Dose albuterol sulfate (PROAIR HFA) 90 mcg/actuation HFA aerosol inhaler Inhale two puffs by mouth into the lungs every 6 hours as needed for Wheezing or Shortness of Breath. Shake well before use. 25.5 g 0 aspirin EC 81 mg tablet Take 81 mg by mouth at bedtime daily. atorvastatin (LIPITOR) 80 mg tablet Take 40 mg by mouth at bedtime daily. cholecalciferol (VITAMIN D-3) 1,000 units tablet Take 1,000 Units by mouth daily. diltiazem SA (+) (TIAZAC) 300 mg capsule Take 300 mg by mouth daily. furosemide (LASIX) 40 mg tablet Take 40 mg by mouth every morning. gabapentin (NEURONTIN) 300 mg capsule Take 300 mg by mouth daily. hyoscyamine sulfate (LEVSIN/SL) 0.[address] one tablet under tongue every 4 hours as needed for Cramps. Max 1.5 mg/ day 30 tablet 3 insulin aspart (U-100) (NOVOLOG FLEXPEN U-100 INSULIN) 100 unit/mL (3 mL) PEN Inject under the skin three times daily with meals. 3 units in breakfast, 3 units lunch, 4 units dinner insulin detemir U-100 (LEVEMIR FLEXTOUCH) 100 unit/mL (3 mL) injection pen Inject 10 Units under the skin at bedtime daily. metFORMIN (GLUCOPHAGE) 1,000 mg tablet Take 1,000 mg by mouth twice daily with meals. naproxen sodium (ALEVE PO) Take by mouth as Needed. oxybutynin chloride (DITROPAN) 5 mg tablet Take one tablet by mouth twice daily. 30 tablet 1 tamsulosin (FLOMAX) 0.4 mg capsule Take 0.4 mg by mouth at bedtime daily. Do not crush, chew or open capsules. Take 30 minutes following the same meal each day. vitamin E 400 unit capsule Take 800 Units by mouth daily. vitamins, multiple tablet Take 2 tablets by mouth daily. Plus Fish oil (Walton-3 1000mg) Medications: Scheduled Meds:Continuous Infusions: PRN and Respiratory Meds: Vital Signs: Last Filed in 24 hours Vital Signs: 24 hour Range Physical Exam: Gen: AOx3, NAD. HEENT: Normocephalic, atraumatic. EOMI, PERRL, no oral lesions, MMM. RESP: Scattered expiratory wheezes, mildly tachypneic on 4 L nasal cannula CVS: NRRR, no murmurs, rubs or gallops. No JVD. ABD: Soft, non-tender, non-distended, BS+, no hepatosplenomegaly. Ext: No rashes, no edema, no joint swelling. Neuro: No gross deficits, strength 5/5, non-focal. Psych: Mood stable. Skin: No rashes on exposed skin. Warm and dry. Lab: No results for input(s): NA, K, CL, CO2, BUN, CR, GLU, GAP, GFR, MG, CA, PO4 in the last 72 hours. No results for input(s): ALKPHOS, AST, ALT, TOTPROT, TOTBILI, ALBUMIN in the last 72 hours. Invalid input(s): AMYLASE, LIPASE No results for input(s): HGB, HCT, WBC, PLTCT, INR in the last 72 hours. No results for input(s): PHART, PCO2A, PO2ART, HCO3A, [id number] in the last 72 hours. Radiology and other diagnostic tests: I have personally reviewed all imaging and diagnostic tests. Dalton Norman MD Contact via Voalte Cancer Staging Bladder cancer (HCC) Staging form: Urinary Bladder, AJCC 7th Edition - Clinical: No stage assigned - Unsigned Carcinoma in situ of penis Staging form: Penis, AJCC 7th Edition - Clinical: No stage assigned - Unsigned Small cell lung cancer (HCC) Staging form: Lung, AJCC 7th Edition - Clinical: Stage IIA (T1b, N1, M0) - Signed by Skip Hughes MBBS on 08/23/2018 Smalll cell Lung Cancer History of Present Illness He presented to PCP for increaseing SOB and productive cough over few months. 05/29/16: CT lung screening showed a 2.7 x 2.4 x 2.2cm lobulated BLAS mass. 06/03/16: PET showed a BLAS mass with SUV 8.4, L hilar node (1.3cm, SUV 7.2). 06/17/16: CT chest showed stable BLAS mass, stable tiny RML nodule, and mild L hilar node, moderate empysema. 06/17/16: PFTs showed FEV1 45% predicted, DLCO 38% predicted, indicating very poor pulmonary function. 06/17/16: visit to [facility] thoracic surgery. cT1bN1. Due to the poor pulmonary function, nonsurgical approach was recommended. 06/26/16: EBUS FNA on 12L node showed carcinoma with +ve CK7/TTF1/ CD56/chromo/synapto/Ki67 > 95%, consistent with small cell lung cancer. 07/03/16: visit to radiation oncology ([facility]). Concurrent chemoradiation (45Gy in 30Fr BID) was suggested. 07/16/16: Brain MRI showed no metastatic lesion but sign of subacute stroke. Past Treatment- Cisplatin and etoposide one cycle (stopped because of toxicity) Carboplatin etoposide 3 cycles , last cycle 10/07/2016 with concurrent radiation (total 4 cycles of chemotherapy completed) completed WBRT on 12/04/16. Interval history: He is here for a follow up and review recent PET scan for concern of recurrence disease. He continues to follow with urology for management of his bladder and penile cancer. He has significant dyspnea with exertion and is using supplemental O2 /. Has been working on improving nutrition. His ambulation is now limited with dyspnea. Review of Systems Constitutional: Positive for fatigue. Negative for activity change, appetite change and unexpected weight change. HENT: Negative. Eyes: Negative for itching. Respiratory: Positive for shortness of breath (unchanged). Cardiovascular: Negative for leg swelling. Gastrointestinal: Negative for diarrhea, nausea and vomiting. Genitourinary: Negative. Musculoskeletal: Positive for arthralgias and back pain. Skin: Negative. Neurological: Negative. Negative for headaches. Hematological: Negative. Psychiatric/Behavioral: Mild short term memory changes, otherwise negative All other systems reviewed and are negative. Objective: albuterol sulfate (PROAIR HFA) 90 mcg/actuation HFA aerosol inhaler Inhale two puffs by mouth into the lungs every 6 hours as needed for Wheezing or Shortness of Breath. Shake well before use. aspirin EC 81 mg tablet Take 81 mg by mouth at bedtime daily. atorvastatin (LIPITOR) 80 mg tablet Take 40 mg by mouth at bedtime daily. cholecalciferol (VITAMIN D-3) 1,000 units tablet Take 1,000 Units by mouth daily. diltiazem SA (+) (TIAZAC) 300 mg capsule Take 300 mg by mouth daily. furosemide (LASIX) 40 mg tablet Take 40 mg by mouth every morning. gabapentin (NEURONTIN) 300 mg capsule Take 300 mg by mouth daily. hyoscyamine sulfate (LEVSIN/SL) 0.[address] one tablet under tongue every 4 hours as needed for Cramps. Max 1.5 mg/ day insulin aspart (U-100) (NOVOLOG FLEXPEN U-100 INSULIN) 100 unit/mL (3 mL) PEN Inject under the skin three times daily with meals. 3 units in breakfast, 3 units lunch, 4 units dinner insulin detemir U-100 (LEVEMIR FLEXTOUCH) 100 unit/mL (3 mL) injection pen Inject 10 Units under the skin at bedtime daily. metFORMIN (GLUCOPHAGE) 1,000 mg tablet Take 1,000 mg by mouth twice daily with meals. naproxen sodium (ALEVE PO) Take by mouth as Needed. oxybutynin chloride (DITROPAN) 5 mg tablet Take one tablet by mouth twice daily. tamsulosin (FLOMAX) 0.4 mg capsule Take 0.4 mg by mouth at bedtime daily. Do not crush, chew or open capsules. Take 30 minutes following the same meal each day. vitamin E 400 unit capsule Take 800 Units by mouth daily. vitamins, multiple tablet Take 2 tablets by mouth daily. Plus Fish oil (Walton-3 1000mg) Vitals: 12/17/21 1608 BP: (!) 164/82 BP Source: Arm, Left Upper Pulse: 87 Temp: 37.1 C (98.7 F) Resp: 18 SpO2: 100% TempSrc: Temporal PainSc: Zero Weight: 73.2 kg (161 lb 6.4 oz) Body mass index is 23.83 kg/m. Pain Score: Zero Pain Addressed: Patient to call office if pain not relieved or worsened Patient Evaluated for a Clinical Trial: No treatment clinical trial available for this patient. Eastern Cooperative Oncology Group performance status is 2, Ambulatory and capable of all selfcare but unable to carry out any work activities. Up and abou t more than 50% of waking hours. Physical Exam Vitals reviewed. Constitutional: General: He is not in acute distress. Appearance: Normal appearance. He is well-developed. He is not diaphoretic. HENT: Head: Normocephalic and atraumatic. Nose: Nose normal. Mouth/Throat: Pharynx: Uvula midline. Eyes: General: No scleral icterus. Conjunctiva/sclera: Conjunctivae normal. Neck: Thyroid: No thyromegaly. Vascular: No JVD. Trachea: Trachea normal. Cardiovascular: Rate and Rhythm: Normal rate and regular rhythm. Pulses: Normal pulses. Heart sounds: Normal heart sounds, S1 normal and S2 normal. No murmur heard. No friction rub. No gallop. Pulmonary: Effort: Pulmonary effort is normal. No respiratory distress. Breath sounds: No decreased breath sounds, wheezing or rales. Comments: Fair air movement Abdominal: General: Bowel sounds are normal. There is no distension. Palpations: Abdomen is soft. Tenderness: There is no abdominal tenderness. Musculoskeletal: General: No tenderness. Normal range of motion. Cervical back: Full passive range of motion without pain. Lymphadenopathy: Cervical: No cervical adenopathy. Skin: General: Skin is warm. Coloration: Skin is not pale. Neurological: Mental Status: He is alert and oriented to person, place, and time. Cranial Nerves: No cranial nerve deficit. Psychiatric: Speech: Speech normal. Behavior: Behavior normal. Thought Content: Thought content normal. Judgment: Judgment normal. CBC w/Diff Lab Results Component Value Date/Time WBC 5.6 12/04/2021 10:35 AM RBC 3.69 (L) 12/04/2021 10:35 AM HGB 11.6 (L) 12/04/2021 10:35 AM HCT 34.6 (L) 12/04/2021 10:35 AM MCV 93.7 12/04/2021 10:35 AM MCH 31.5 12/04/2021 10:35 AM MCHC 33.6 12/04/2021 10:35 AM RDW 14.1 12/04/2021 10:35 AM PLTCT 207 12/04/2021 10:35 AM MPV 8.2 12/04/2021 10:35 AM Lab Results Component Value Date/Time NEUT 67 12/04/2021 10:35 AM ANC 3.80 12/04/2021 10:35 AM LYMA 13 (L) 12/04/2021 10:35 AM ALC 0.70 (L) 12/04/2021 10:35 AM YANCI 13 (H) 12/04/2021 10:35 AM AMC 0.70 12/04/2021 10:35 AM EOSA 6 (H) 12/04/2021 10:35 AM AEC 0.30 12/04/2021 10:35 AM BASA 1 12/04/2021 10:35 AM ABC 0.10 12/04/2021 10:35 AM Comprehensive Metabolic Profile Lab Results Component Value Date/Time NA 142 12/04/2021 10:35 AM K 4.4 12/04/2021 10:35 AM CL 100 12/04/2021 10:35 AM CO2 38 (H) 12/04/2021 10:35 AM GAP 4 12/04/2021 10:35 AM BUN 32 (H) 12/04/2021 10:35 AM CR 2.20 (H) 12/04/2021 10:35 AM GLU 198 (H) 12/04/2021 10:35 AM Lab Results Component Value Date/Time CA 9.0 12/04/2021 10:35 AM PO4 3.7 07/29/2020 01:30 PM ALBUMIN 3.7 12/04/2021 10:35 AM TOTPROT 6.4 12/04/2021 10:35 AM ALKPHOS 79 12/04/2021 10:35 AM AST 11 12/04/2021 10:35 AM ALT 12 12/04/2021 10:35 AM TOTBILI 0.5 12/04/2021 10:35 AM GFR 28 (L) 12/04/2020 02:13 PM GFRAA 34 (L) 12/04/2020 02:13 PM Assessment and Plan: Problem Small Cell Lung Cancer (Hcc) 1. Patient presented to PCP for increaseing SOB and productive cough over few months. 2. 05/29/16: CT lung screening showed a 2.7 x 2.4 x 2.2cm lobulated BLAS mass. 3. 06/03/16: PET showed a BALS mass with SUV 8.4, L hilar node (1.3cm, SUV 7.2). 4. 06/17/16: CT chest showed stable BLAS mass, stable tiny RML nodule, and mild L hilar node, moderate empysema. 5. 06/17/16: PFTs showed FEV1 45% predicted, DLCO 38% predicted, indicating very poor pulmonary function. 6. 06/17/16: visit to [facility] thoracic surgery. cT1bN1. Due to the poor pulmonary function, nonsurgical approach was recommended. 7. 06/26/16: EBUS FNA on 12L node showed carcinoma with +ve CK7/TTF1/CD56/chromo/synapto/Ki67 > 95%, consistent with small cell lung cancer. 8. 07/03/16: visit to radiation oncology ([facility]). Concurrent chemoradiation (45Gy in 30Fr BID) was suggested. 9. 07/16/16: Brain MRI showed no metastatic lesion but sign of subacute stroke. Past Treatment: Concurrent chemoradiation Cisplatin and etoposide one cycle (stopped because of toxicity) Carboplatin etoposide for 3 cycles, last cycle administered 10/07/2016 with concurrent radiation PCI with WBRT on 12/04/16. Admission Date: 01/13/2022 Date of Consultation: 01/13/2022 LOS: 0 days Requesting Physician: Tylor Galeana MD Consulting Physician: Meghann Schultz MD Assessment 1. Preop cardiovascular risk is intermediate. He has known coronary disease but does not have angina, previous infarct, heart failure, or dysrhythmias. Exercise tolerance is poor based on his lumbar disc disease peripheral vascular disease is here. No previous myocardial infarction CT chest does show coronary calcification therefore he is at least some coronary disease Echocardiogram 1 year ago shows normal LV function no significant valvular disease. There is minimal aortic sclerosis, mild MR, MAC. All of these are typical for man his age His risk for Cardioace complications going to be intermediate. I do not believe the evaluation for ischemia. Change assessment of the risk. If it is necessary to obtain information, I would suggest proceeding with his surgery 2. Coronary artery disease Known coronary disease based on CT calcification Patient tolerated aneurysm surgery 10 years ago without complication Does not have angina Is not a candidate for surgical intervention If we would proceed with an angiogram and percutaneous intervention (he does not have angina so it is not clearly indicated) we would have to postpone his lung procedure for 3 to 6 months. For the time being we will suggest ongoing medical management-aspirin, statin, angina treatment. Ribs 3. Lung mass-new Probably new lung cancer 4. History of small cell carcinoma lung 5. History of bladder cancer and penile cancer 6. Severe COPD 7. Hypertension 8. Hypercholesterolemia treated 9. Diabetes mellitus 10. Peripheral vascular disease with history of AAA repair and probable claudication 11. Severe low back pain/spinal stenosis/lumbar disc disease Recommendations 1. We will start with an echocardiogram. LV function remains normal but I think we should proceed with his intervention 2. Risk of surgery is intermediate for cardiac complications. I do not believe that further testing will alter that dissection. 3. Will follow postoperatively if needed Meghann Schultz MD 01/13/22 addendum Echocardiogram today-EF normal at 60 to 65%, LVH, aortic valve sclerosis without stenosis, no significant AI, Mitral annular calcification. No MS. Mild MR. No new findings on echo. LV function remains normal. Proceed as recommended above. Meghann Schultz MD Reason for Consultation Opinion and recommendations regarding preoperative cardiovascular risk for a prolonged endobronchial procedure for staging, and diagnosis of a new lung cancer History of Present Illness Nhan Galeano is a 76 y.o. male patient with history of peripheral vascular disease and coronary disease. He was admitted to hospital today for evaluation of a recurrent and progressive pulmonary mass. Is not clear if this is re currence of his small cell cancer, new lung cancer, metastatic cancer from his other lesions. He has a history of both penile and bladder cancer. Mr. Haskins has significant risk factors for heart disease. He has smoked up to 4 packs cigarettes daily has a greater than [id number] smoking history although he quit in 2016. He is diabetic. He is hypertensive in the past has a family history of coronary disease in his father. He is not overweight. He is quite sedentary. Mr. Galeano has a mass in his chest that is increasing in size. He has a history of small cell carcinoma treated with radiation therapy. Was not a surgical candidate with his first because of his severe lung disease. He also has history of bladder cancer and penile cancer. He does have known coronary disease with calcification on his coronary arteries but does not have a previous known clinical cardiac event. He has not had an MRI for angina. He denies any chest pain or chest pain. He denies any PND orthopnea. He gets short of breath with walking any distance has been chronic. He also has severe low back pain and leg pain his legs get weak when he walks. He is not clear if this is claudication from peripheral vascular pseudoclaudication from his lumbar disc disease. He does not have angina. Had a previous myocardial infarction. Not of been treated for heart failure. His echo showed normal left ventricular function 1 year ago. He has not had dysrhythmias. His risk factors are treated. He tells me that a county program technician I have asked him to come back after previous surgery for further evaluation he has not yet gone. This is reasonable. Past Medical History Medical History: Diagnosis Date Arthritis hips, ankles, shoulders Bladder cancer (HCC) Chronic constipation Coronary artery disease DM (diabetes mellitus) (HCC) Erectile dysfunction History of dental problems upper and lower dentures History of radiation therapy Hyperlipidemia Lung cancer (HCC) Lung nodule On supplemental oxygen therapy Penile cancer (HCC) S/P AAA repair Urethral stricture Urinary tract infection Social History Social History Socioeconomic History Marital status: Tobacco Use Smoking status: Former Smoker Packs/day: 2.50 Years: 50.00 Pack years: 125.00 Types: Cigarettes Quit date: 12/13/2015 Years since quittin.0 Smokeless tobacco: Never Used Vaping Use Vaping Use: Never used Substance and Sexual Activity Alcohol use: No Alcohol/week: 0.0 standard drinks Comment: Quit drinking 09/2014 Drug use: No Sexual activity: Not Currently Partners: Female Family History Family History Problem Relation Age of Onset Hip Fracture Mother Stroke Father Drug Abuse Brother Medications Allergies Allergies Allergen Reactions Fluorouracil RASH Glipizide EDEMA Ankle Swelling Review of Systems A 10 point review of systems was ascertained and is otherwise negative and/or normal except for: No syncope Positive for leg pain with walking. He has severe low back pain. Claudication due to lumbar disc disease Probable claudication due to ( No aneurysm and vascular disease Positive dyspnea exertional dyspnea Denies cough] cough or hemoptysis Denies hot or cold intolerance Denies chest pain or angina Vital Signs: Most Recent Vital Signs: 24 Hour Range BP: 179/93 (01/13 731) Temp: 36.9 C (98.4 F) (01/13 731) Pulse: 87 (01/13 731) Respirations: 23 PER MINUTE (01/13 731) SpO2: 100 % (01/13 731) O2 Device: Nasal cannula (01/13 731) O2 Liter Flow: 4 Lpm (01/13 731) Height: 175.3 cm (5' 9") (01/13 731) BP: (179)/(93) Temp: [36.9 C (98.4 F)] Pulse: [87] Respirations: [23 PER MINUTE] SpO2: [100 %] O2 Device: Nasal cannula O2 Liter Flow: 4 Lpm Vitals: 01/13/22730 Weight: 72.9 kg (160 lb 12.8 oz) No intake or output data in the 24 hours ending 01/13/22928 Physical Exam General Appearance: resting comfortably, no acute distress Skin: warm, moist, no ulcers or xanthomas, abdominal scars Digits and Nails: no clubbing Eyes: conjunctivae and lids normal, pupils are equal and round Lips & Oral Mucosa: no pallor or cyanosis Neck Veins: neck veins are flat, neck veins are not distended Thyroid: no nodules or enlargement Chest Inspection: chest is normal in appearance Respiratory Effort: breathing is unlabored, no respiratory distress Auscultation/Percussion: poor air movement PMI: PMI not enlarged or displaced Cardiac Rhythm: regular rhythm and normal rate Cardiac Auscultation: Normal S1 & S2, no S3 or S4, no rub Murmurs: no cardiac murmurs Carotid Arteries: normal carotid upstroke bilaterally, no bruits Abdominal Exam: soft, non-tender, no masses, bowel sounds normal Abdominal Aorta: nonpalpable abdominal aorta; no abdominal bruits Liver & Spleen: no organomegaly Neurologic Exam: neurological assessment grossly intact Orientation: oriented to time, place and person, forgetful Affect & Mood: appropriate and sustained affect Labs Pertinent labs reviewed by me. Pertinent positives: ECG NSR. possible LVH, no Q waves LIZBETH MONIQUE DO Jan 25, 2022 19:22 <Created by LIZBETH MONIQUE DO> Date Seen 01/25/22 Time Seen by a Provider: 22:30 Attending Physician Femi Powell DO PCP Admitting Physician: Lizbeth Monique DO Attending Physician: Lizbeth Monique DO Referring Physician Date of Admission Home Medications & Allergies Home Medications Reviewed patient Home Medication Reconciliation performed by pharmacy medication reconciliations cad technician and/or nursing. Patients Allergies have been reviewed. Allergies Allergies Coded Allergies enalapril (Verified Adverse Reaction, Intermediate, COUGH, 5/14/15) Past Ezeqiwa-Eyzwpt-Kmepde Hx Past Med/Social Hx: Reviewed Nursing Past Med/Soc Hx, Reviewed and Corrections made Patient Social History Marrital Status: Employed/Student: retired Smoking Status: Former Smoker (quit 2017) Former Smoker, Quit: Aug 01, 2015 Type Used: Cigarettes Recent Hopitalizations: Yes ([facility] X2 NIGHTS THEN TRANSFERRED TO FOR PNEU & POOR APPITITE) Immunizations Up To Date Tetanus Booster (TDap): Unknown Date of Pneumonia Vaccine: Jan 05, 2019 Date of Influenza Vaccine: Jan 04, 2020 Seasonal Allergies Seasonal Allergies: No Past Medical History Surgeries: Bladder Surgery, Gallbladder, Pneumonectomy, Vascular Surgery Respiratory: COPD Currently Using CPAP: No Currently Using BIPAP: No Cardiac: Valvular Heart Disease Neurological: Headaches /Migraines, Neuropathy Reproductive: No Sexually Transmitted Disease: No HIV/AIDS: No Genitourinary: Renal Failure Gastrointestinal: Chronic Constipation, Gall Bladder Disease Musculoskeletal: Arthritis, Back Injury Endocrine: Diabetes, Non-Insulin dep HEENT: Chronic Eye Infection Loss of Vision: Denies Hearing Impairment: Denies, Bilateral Hearing Aide Cancer: Bladder, Lung, Skin Did You Recieve Any Treatments: Yes What Type of Treatment Did You: Chemotherapy, Radiation, Surgical Intervention History of Blood Disorders: No Adverse Reaction to Blood Ward: No Review of Systems Constitutional: see HPI Respiratory: dyspnea on exertion, short of breath Cardiovascular: edema Physical Exam Physical Exam Vital Signs Capillary Refill : Height, Weight, BMI Height: 5'10.00" Weight: 175lbs. 0.0oz. [id number]; 24.13 BMI Method: General Appearance: No Apparent Distress, Chronically ill, Other (sedated and intubated) Respiratory: No Accessory Muscle Use, No Respiratory Distress, Decreased Breath Sounds Cardiovascular: Regular Rate, Rhythm Skin: Normal Color, Warm/Dry Results Results/Procedures Labs Patient resulted labs reviewed. 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 Cardiology Monitor creat EICU appreciated Admission Status: Inpatient Order (span 2 midnights) Reason for Inpatient Admission: resp failure LIZBETH MONIQUE DO Jan 25, 2022 22:33
[2022-01-25] MEDS ORDERED: fentaNYL DRIP PRE-MIX 250 ML IV ONE (22:44)
[2022-01-25] MEDS ORDERED: PROPOFOL DRIP (ICU) 100 ML IV ONE (22:44)
[2022-01-25] MEDS: NS IV 1000 ML 1,000 ML IV SCH (22:58)
--- NOTE | 2022-01-25 22:58 | Diagnostic Imaging Report ---
EXAM: Chest 1 view, AP/PA only. INDICATION: Pneumonia. Shortness of air. COMPARISON: 02/27/2020. FINDINGS: ETT tip just below the level of the clavicles. NG tube tip in the stomach with the side-port in the distal esophagus. Right IJ CVC tip in low SVC. Normal heart size and central pulmonary vascularity. Patchy airspace opacities in both lungs, greatest in the left upper lobe. Small left pleural effusion. No pneumothorax. No acute osseous finding. IMPRESSION: 1. Airspace opacities in both lungs are greatest in the left lower lobe suspicious for pneumonitis. 2. Small left pleural effusion. 3. NG tube tip in the stomach with the side port in the distal esophagus. This could be advanced. Dictated by: Dictated on workstation # [id number]
[2022-01-25] MEDS: PROPOFOL DRIP (ICU) 100 ML IV SCH (22:59)
[2022-01-25] MEDS: fentaNYL DRIP PRE-MIX 250 ML IV SCH (23:03)
[2022-01-25 23:05] LABS: BASOPHILS % (AUTO) 0 % (0-10); EOSINOPHILS % (AUTO) 0 % (0-10); HEMOGLOBIN 10.9 g/dL (13.3-17.7)
[2022-01-25 23:07] LABS: HEMATOCRIT 35 % (40-54); LYMPHOCYTES # (AUTO) 0.4 10^3/uL (1.0-4.0); LYMPHOCYTES % (AUTO) 6 % (12-44); MEAN CORPUSCULAR HEMOGLOBIN 31 pg (25-34); MEAN CORPUSCULAR HGB CONC 31 g/dL (32-36); MEAN CORPUSCULAR VOLUME 98 fL (80-99); MONOCYTES # (AUTO) 0.6 10^3/uL (0.0-1.0); MONOCYTES % (AUTO) 8 % (0-12); NEUTROPHILS # (AUTO) 6.7 10^3/uL (1.8-7.8); NEUTROPHILS % (AUTO) 85 % (42-75); PLATELET COUNT 108 10^3/uL (130-400); WHITE BLOOD COUNT 7.9 10^3/uL (4.3-11.0)
[2022-01-25 23:16] LABS: ALBUMIN 3.3 GM/DL (3.2-4.5)
[2022-01-25 23:17] LABS: CALCIUM 8.7 MG/DL (8.5-10.1)
[2022-01-25 23:18] LABS: TOTAL PROTEIN 6.1 GM/DL (6.4-8.2)
[2022-01-25 23:20] LABS: BILIRUBIN,TOTAL 0.7 MG/DL (0.1-1.0)
[2022-01-25 23:22] LABS: CREATININE SERUM 2.2 MG/DL (0.60-1.30)
[2022-01-25 23:24] LABS: ABG BASE EXCESS 1.7 MMOL/L (-2.5-2.5); ABG OXYGEN SATURATION 91 % (94-100); ABG PCO2 50 MMHG (35-45); ABG PH 7.35 (7.37-7.43); ABG PO2 49 MMHG (79-93); ABG TCO2 28.5 MMOL/L (21.0-31.0)
[2022-01-25 23:25] LABS: ALLENS TEST ART LINE; INSPIRED O2 100%; PATIENT TEMP 36.3; VENTILATOR YES
[2022-01-25] MEDS ORDERED: CEFEPIME 1 GM/10 ML (MAXIPIME) VIAL ONE (23:30)
[2022-01-25] MEDS ORDERED: NS (IVPB) 50 ML ONE (23:31)
--- NOTE | 2022-01-25 23:34 | Tele-ICU Consult ---
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 Hx of extensive CAD, s/p AAA repair 2002 Also has Hx of bladder Ca, managed at [facility], Hx of CKD with baseline Cr 2.5 Has IDDM, multiple falls at home, has severe COPD on home oxygen at 6 lpm Family has considered making pt DNR but for now agreed for intubation. Current vent settings AC 20, Vt 450, FIO2 100% PEEP 12, was 5 ABG 7.35/50/49-pO2 now sedated on IV 50 Fentanyl, 10 Propofol, doing better with vent Allergies and Home Medications Allergies Coded Allergies: enalapril (Verified Adverse Reaction, Intermediate, COUGH, 09/07/14) Home Medications Aspirin 81 Mg Tab.chew, 81 MG PO DAILY, (Reported) Atorvastatin Calcium 80 Mg Tablet, 40 MG PO HS, (Reported) TAKE 1/2 OF 80MG TAB Cholecalciferol (Vitamin D3) 1,250 Mcg Capsule, 1,000 MCG PO DAILY, (Reported) Diltiazem HCl 300 Mg Cap.er.24h, 300 MG PO DAILY, (Reported) Furosemide 40 Mg Tablet, 40 MG PO DAILY, (Reported) Gabapentin 300 Mg/6 Ml Solution, 300 MG PO DAILY, (Reported) Glycopyrrolate/Formoterol Fum 10.7 Gm Hfa.aer.ad, 10.7 GM IH BID, (Reported) Insulin Aspart 100 Unit/1 Ml Susp, 3 UNIT SQ AC, (Reported) Insulin Determir 1,000 Units/10 Ml Soln, 10 UNITS SQ HS, (Reported) Metformin HCl 1,000 Mg Tablet, 1,000 MG PO BID Hold metformin for 48 hours Prescribed by: LASHAY LIRA on 02/27/20 1026 [place]-3 Fatty Acids/Fish Oil 1 Each Capsule.dr, 2 EACH PO DAILY, (Reported) Tamsulosin HCl 0.4 Mg Cap, 0.4 MG PO HS, (Reported) Past Medical/Social/Family Hx Patient Social History Marrital Status: Employed/Student: retired Smoking Status: Former Smoker (quit 2017) Immunizations Up To Date Date of Pneumonia Vaccine: Jan 05, 2019 Current Status Primary Language: Bruneian Review of Systems Constitutional: see HPI EENTM: see HPI Respiratory: see HPI Cardiovascular: see HPI Gastrointestinal: see HPI Genitourinary: see HPI Musculoskeletal: see HPI Skin: see HPI Psychiatric/Neurological: See HPI Focused Exam Lactate Level 01/25/22 22:49: Lactic Acid Level 1.63 Height, Weight, BMI Height: 5'10.00" Weight: 175lbs. 0.0oz. 79.434600uj; 24.13 BMI Method: Lactic Acid Level Laboratory Tests Test 01/25/22 22:49 Lactic Acid Level 1.63 MMOL/L (0.50-2.00) Exam Exam Patient acknowledged, consented, and participated in this virtual visit which was conducted using real time audio/video Vital Signs Date Time Temp Pulse Resp B/P (MAP) Pulse Ox O2 Delivery O2 Flow Rate FiO2 01/25/22 23:03 79 204/56 01/25/22 22:59 79 204/56 01/25/22 22:20 100 Height & Weight Height: 5'10.00" Weight: 175lbs. 0.0oz. 79.754660wd; 24.13 BMI Method: General Appearance: No Apparent Distress, Chronically ill, Mild Distress, Other (sedated and intubated) Respiratory: No Accessory Muscle Use, No Respiratory Distress, Decreased Breath Sounds, Other (RN says breath sounds in both lungs but rhonchi) Cardiovascular: Regular Rate, Rhythm Gastrointestinal: normal bowel sounds, non tender, soft, hernia, other (umbilica hernia) Extremity: Pedal Edema (+2 leg edema) Skin: Normal Color, Warm/Dry Results Lab Laboratory Tests 01/25/22 22:49 Assessment/Plan Assessment/Plan supposedly left lung collapse but now looks expanded, ET tube should be advanced about 3 cm continue on full vent support, try to lower FiO2 to 60% if possible, will order non violent restraints outlook poor, would discuss goals of care with family Continue IV Cefepime Physical findings from RN and ED note Critical Care: Ventilator Management Time spent with patient (mins): 35 OMID THURMAN MD Jan 25, 2022 23:34
[2022-01-25 23:46] LABS: ELLIPT/OVALOCYTES SLIGHT; EOSINOPHILS % (MANUAL) 1 %; LYMPHOCYTES % (MANUAL) 6 %; MONOCYTES % (MANUAL) 6 %; MYELOCYTES % 1 %; NEUTROPHILS % (MANUAL) 86 %
[2022-01-25] MEDS ORDERED: inSUlin ASPART (NovoLOG) 1 UNIT/0.01 ML (CHARGE PER UNIT) ONE (23:49)
[2022-01-25] MEDS: inSUlin ASPART (NovoLOG) 1 UNIT/0.01 ML (CHARGE PER UNIT) SC SCH (23:50)
[2022-01-26] VITALS (7 sets, daily range): BP systolic 130–158; BP diastolic 36–57
[2022-01-26] MEDS ORDERED: CEFEPIME INJECTION 1,000 MG in NS (IVPB) 50 ML IV SCH ×2
[2022-01-26] MEDS: RT-ALBUTEROL/IPRATROPIUM 3 ML (DUONEB) VIAL INH PRN (00:14)
[2022-01-26] MEDS: CEFEPIME INJECTION 1,000 MG in NS (IVPB) 50 ML IV SCH ×4 (00:31→23:49)
[2022-01-26] MEDS: RT-ALBUTEROL/IPRATROPIUM 3 ML (DUONEB) VIAL INH SCH ×6 (02:05→22:17)
--- NOTE | 2022-01-26 02:36 | Tele-ICU Progress Note ---
Subjective Date Seen by a Provider: Jan 26, 2022 Time Seen by a Provider: 02:34 Subjective/Events-last exam ET tube has been pulled back, called to write vent orders AC 20, Vt 450, FiO2 60% PEEP 5, vent not alarming, no autoPEEP, will order Ricardo Thurman MD Sepsis Event Evaluation Height, Weight, BMI Height: 5'10.00" Weight: 175lbs. 0.0oz. 79.629776nv; 23.70 BMI Method: Focused Exam Lactate Level 01/25/22 22:49: Lactic Acid Level 1.63 Lactic Acid Level Laboratory Tests Test 01/25/22 22:49 Lactic Acid Level 1.63 MMOL/L (0.50-2.00) Exam Exam Patient acknowledged, consented, and participated in this virtual visit which was conducted using real time audio/video Vital Signs Date Time Temp Pulse Resp B/P (MAP) Pulse Ox O2 Delivery O2 Flow Rate FiO2 01/26/22 02:05 76 20 95 60 01/26/22 01:00 72 01/26/22 00:39 Mechanical Ventilator 60 01/26/22 00:15 Mechanical Ventilator 60.00 01/26/22 00:15 60 01/26/22 00:10 72 20 99 80 01/26/22 00:00 72 19 120/64 (82) 99 Mechanical Ventilator 80.00 168/61 (96) 01/25/22 23:58 Mechanical Ventilator 80.00 01/25/22 23:58 80 01/25/22 23:30 69 20 114/58 (76) 99 Mechanical Ventilator 100.00 147/44 (78) 01/25/22 23:19 Mechanical Ventilator 100.00 01/25/22 23:05 69 20 89 100 01/25/22 23:03 79 204/56 01/25/22 23:00 76 20 127/64 (85) 95 Mechanical Ventilator 35.00 200/56 (104) 01/25/22 22:59 79 204/56 01/25/22 22:45 80 20 99 Mechanical Ventilator 35.00 238/77 (130) 01/25/22 22:30 90 25 172/88 (116) 100 Mechanical Ventilator 35.00 246/87 (139) 01/25/22 22:21 85 20 100 75 01/25/22 22:20 100 10/1/22 22:15 36.3 90 25 161/81 (129) 100 Mechanical Ventilator 35.00 I & O 01/26/22 07:00 Intake Total 50 ml Output Total 875 ml Balance -825 ml Height & Weight Height: 5'10.00" Weight: 175lbs. 0.0oz. 79.180390zb; 23.70 BMI Method: General Appearance: No Apparent Distress, Chronically ill, Mild Distress, Other (sedated and intubated) Respiratory: No Accessory Muscle Use, No Respiratory Distress, Decreased Breath Sounds, Other (RN says breath sounds in both lungs but rhonchi) Cardiovascular: Regular Rate, Rhythm Gastrointestinal: normal bowel sounds, non tender, soft, hernia, other (umbilica hernia) Extremity: Pedal Edema (+2 leg edema) Skin: Normal Color, Warm/Dry Results Lab Laboratory Tests 01/25/22 22:49 Assessment/Plan Assessment/Plan will write vent orders Critical Care: Ventilator Management Time spent with patient (mins): 15 OMID THURMAN MD Jan 26, 2022 02:36
[2022-01-26 04:20] LABS: BASOPHILS % (AUTO) 0 % (0-10); EOSINOPHILS % (AUTO) 0 % (0-10); HEMATOCRIT 30 % (40-54); HEMOGLOBIN 9.8 g/dL (13.3-17.7); LYMPHOCYTES # (AUTO) 0.7 10^3/uL (1.0-4.0); LYMPHOCYTES % (AUTO) 8 % (12-44); MEAN CORPUSCULAR HEMOGLOBIN 31 pg (25-34); MEAN CORPUSCULAR HGB CONC 32 g/dL (32-36); MEAN CORPUSCULAR VOLUME 97 fL (80-99); MEAN PLATELET VOLUME 10.7 fL (9.0-12.2); MONOCYTES # (AUTO) 0.9 10^3/uL (0.0-1.0); MONOCYTES % (AUTO) 11 % (0-12); NEUTROPHILS # (AUTO) 6.5 10^3/uL (1.8-7.8); NEUTROPHILS % (AUTO) 80 % (42-75); PLATELET COUNT 110 10^3/uL (130-400); WHITE BLOOD COUNT 8.2 10^3/uL (4.3-11.0)
[2022-01-26 04:21] LABS: ABG BASE EXCESS 4.3 MMOL/L (-2.5-2.5); ABG OXYGEN SATURATION 93 % (94-100); ABG PCO2 54 MMHG (35-45); ABG PH 7.36 (7.37-7.43); ABG PO2 58 MMHG (79-93); ABG TCO2 31.1 MMOL/L (21.0-31.0)
[2022-01-26 04:22] LABS: ALLENS TEST ART LINE; INSPIRED O2 60%; PATIENT TEMP 36.7; VENTILATOR YES
[2022-01-26 04:34] LABS: ALBUMIN 2.9 GM/DL (3.2-4.5); POTASSIUM 4.2 MMOL/L (3.6-5.0)
[2022-01-26 04:35] LABS: CALCIUM 8.3 MG/DL (8.5-10.1)
[2022-01-26 04:36] LABS: TOTAL PROTEIN 5.3 GM/DL (6.4-8.2)
[2022-01-26 04:38] LABS: BILIRUBIN,TOTAL 0.4 MG/DL (0.1-1.0)
[2022-01-26 04:40] LABS: CREATININE SERUM 2.31 MG/DL (0.60-1.30); PHOSPHORUS 3.3 MG/DL (2.3-4.7)
[2022-01-26 04:43] LABS: MAGNESIUM 1.9 MG/DL (1.6-2.4)
[2022-01-26] MEDS: MAGNESIUM 1 GM/100 ML IVPB 100 ML IV SCH (05:02)
[2022-01-26] MEDS: POTASSIUM CL 10MEQ/50ML IVPB 50 ML IV SCH (05:02)
[2022-01-26] MEDS: KCL 20 MEQ TAB (K-DUR) PO SCH (05:02)
[2022-01-26] MEDS: inSUlin ASPART (NovoLOG) 1 UNIT/0.01 ML (CHARGE PER UNIT) SC SCH ×4 (05:19→23:48)
[2022-01-26] MEDS: PROPOFOL DRIP (ICU) 100 ML IV SCH ×3 (05:37→23:49)
--- NOTE | 2022-01-26 06:51 | Diagnostic Imaging Report ---
Indication: Dyspnea, follow-up pneumonia. Comparison: 01/25/2022. Discussion: Single portable upright view of the chest was obtained. Mild cardiomegaly is stable. Left pleural effusion is stable to slightly increased. Central pulmonary infiltrates are again noted bilaterally which are slightly decreased from the prior exam given differences in technique. Endotracheal tube, enteric tube, and right IJ central line are stable. No pneumothorax or osseous abnormality. Impression: 1. Cardiomegaly and left effusion are essentially stable. 2. Pulmonary infiltrates are slightly decreased. Dictated by: Dictated on workstation # [id number]
--- NOTE | 2022-01-26 07:58 | Progress Note ---
Subjective Date Seen by a Provider: Jan 26, 2022 Time Seen by a Provider: 10:00 Subjective/Events-last exam Ventilator maintained 450/20/5/60% ABG reviewed Bronch does not appear to be necessary Lengthy discussion with 2 sons and in ICU waiting room with RN Requested DNR which is reasonable but it does not appear they want to make that decision today even though they know he would remain intubated but I explained that if he heart would stop of lungs completely fail would they want chest compressions in order to restart his heart and it appears they do which would provide no benefit to the patient. Unrealistic expectations are assessed by the entire family since "this is exactly what happened 18 months ago and he was taken off the vent and did very well and was able to get around well" but I explained that he loses reserve each time this occurs and he is 1 year older and this time it could very well be different. I think that is he remains intubated past 4 days they will believe he will have this issue over and over again and that is how it will be but unsure of the outcome and quality of life if he is continues to do this. Focused Exam Lactate Level 01/25/22 22:49: Lactic Acid Level 1.63 Objective Exam Last Set of Vital Signs Vital Signs Date Time Temp Pulse Resp B/P (MAP) Pulse Ox O2 Delivery O2 Flow Rate FiO2 01/26/22 07:49 37.4 01/26/22 07:09 90 20 94 60 01/26/22 07:00 114/51 (72) Mechanical Ventilator 60.00 144/45 (78) Capillary Refill : Less Than 3 Seconds General: Other (sedated and intubated) Lungs: Clear to Auscultation Heart: Regular Rate Results Lab Laboratory Tests 01/25/22 22:49: White Blood Count 7.9, Red Blood Count 3.54L, Hemoglobin 10.9L, Hematocrit 35L, Mean Corpuscular Volume 98, Mean Corpuscular Hemoglobin 31, Mean Corpuscular Hemoglobin Concent 31L, Red Cell Distribution Width 13.0, Platelet Count 108L, Mean Platelet Volume 11.0, Immature Granulocyte % (Auto) 1, Neutrophils (%) (Auto) 85H, Lymphocytes (%) (Auto) 6L, Monocytes (%) (Auto) 8, Eosinophils (%) (Auto) 0, Basophils (%) (Auto) 0, Neutrophils # (Auto) 6.7, Lymphocytes # (Auto) 0.4L, Monocytes # (Auto) 0.6, Eosinophils # (Auto) 0.0, Basophils # (Auto) 0.0, Immature Granulocyte # (Auto) 0.1, Neutrophils % (Manual) 86, Lymphocytes % (Manual) 6, Monocytes % (Manual) 6, Eosinophils % (Manual) 1, Myelocytes % 1, Percent Immature Platelet Fraction 5.2, Elliptocytes SLIGHT, Sodium Level 140, Potassium Level 5.0, Chloride Level 102, Carbon Dioxide Level 25, Anion Gap 13, Blood Urea Nitrogen 40H, Creatinine 2.20H, Estimat Glomerular Filtration Rate 30, BUN/Creatinine Ratio 18, Glucose Level 299H, Lactic Acid Level 1.63, Calcium Level 8.7, Corrected Calcium 9.3, Total Bilirubin 0.7, Aspartate Amino Transf (AST/SGOT) 14, Alanine Aminotransferase (ALT/SGPT) 15, Alkaline Phosphatase 105, Total Protein 6.1L, Albumin 3.3, Triglycerides Level 177H, Procalcitonin 0.06 01/25/22 22:53: B-Type Natriuretic Peptide 387.7H 01/25/22 23:17: Blood Gas Puncture Site RIGHT ARTLINE, Blood Gas Patient Temperature 36.3, Arterial Blood pH 7.35L, Arterial Blood Partial Pressure CO2 50H, Arterial Blood Partial Pressure O2 49L, Arterial Blood HCO3 27, Arterial Blood Total CO2 28.5, Arterial Blood Oxygen Saturation 91L, Arterial Blood Base Excess 1.7, Tuan Test ART LINE, Blood Gas Ventilator Setting YES, Blood Gas Inspired Oxygen 100% 01/26/22 04:10: White Blood Count 8.2, Red Blood Count 3.13L, Hemoglobin 9.8L, Hematocrit 30L, Mean Corpuscular Volume 97, Mean Corpuscular Hemoglobin 31, Mean Corpuscular Hemoglobin Concent 32, Red Cell Distribution Width 13.2, Platelet Count 110L, Mean Platelet Volume 10.7, Immature Granulocyte % (Auto) 1, Neutrophils (%) (Auto) 80H, Lymphocytes (%) (Auto) 8L, Monocytes (%) (Auto) 11, Eosinophils (%) (Auto) 0, Basophils (%) (Auto) 0, Neutrophils # (Auto) 6.5, Lymphocytes # (Auto) 0.7L, Monocytes # (Auto) 0.9, Eosinophils # (Auto) 0.0, Basophils # (Auto) 0.0, Immature Granulocyte # (Auto) 0.1, Sodium Level 142, Potassium Level 4.2, Chloride Level 106, Carbon Dioxide Level 26, Anion Gap 10, Blood Urea Nitrogen 43H, Creatinine 2.31H, Estimat Glomerular Filtration Rate 29, BUN/Creatinine Ratio 19, Glucose Level 212H, Calcium Level 8.3L, Corrected Calcium 9.2, Total Bilirubin 0.4, Aspartate Amino Transf (AST/SGOT) 11, Alanine Aminotransferase (ALT/SGPT) 12, Alkaline Phosphatase 89, Total Protein 5.3L, Albumin 2.9L, Blood Gas Puncture Site R RAD ARTLINE, Blood Gas Patient Temperature 36.7, Arterial Blood pH 7.36L, Arterial Blood Partial Pressure CO2 54H, Arterial Blood Partial Pressure O2 58L, Arterial Blood HCO3 30H, Arterial Blood Total CO2 31.1H, Arterial Blood Oxygen Saturation 93L, Arterial Blood Base Excess 4.3H, Tuan Test ART LINE, Blood Gas Ventilator Setting YES, Blood Gas Inspired Oxygen 60%, Phosphorus Level 3.3, Magnesium Level 1.9 Assessment/Plan Assessment/Plan Assess & Plan/Chief Complaint Assessment: Acute on chronic respiratory failure requiring intubation at [facility] and transfer to higher level of care Lung cancer s/p treatment and recent lung mass biopsy New bladder 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
[2022-01-26] MEDS: PANTOPRAZOLE 40 MG (PROTONIX) VIAL IV SCH (08:05)
--- NOTE | 2022-01-26 09:12 | Consultation - Surgery ---
SANTO ANGLIN 01/26/22 0912: History of Present Illness History of Present Illness Patient Consulted On(galen/time) 01/26/22 09:05 Date Seen by Provider: Jan 26, 2022 Time Seen by Provider: 09:06 History of Present Illness Mr Galeano is a 77 M with a PMH of Bladder cancer, SCLC, CKD, Insulin dependent DM, CAD, and COPD. He is intubated and sedated, so I obtained the history from documentation gathered by Dr. West that includes notes from [facility] and [facility]. Pt was admitted to [facility] on 01/24 after frequent falls. He developed N/V there and was treated with IV fluids. His comorbid condition and fluids lead to him being intubated there and transferred here for the need for ICU care and management. His CXR revealed a left lower lobe airspace opacity and effusion wi th baseline cardiomegaly. He is being consulted by surgery for a potential brochoscopy to remove mucus plugging in the hopes of improving oxygenation. Allergies and Home Medications Allergies Coded Allergies: enalapril (Verified Adverse Reaction, Intermediate, COUGH, 09/07/14) Patient Home Medication List Home Medication List Reviewed: Yes Aspirin (Aspirin) 81 Mg Tab.chew, 81 MG PO DAILY, (Reported) Entered as Reported by: LEIGH SHABAZZ on 02/27/20 0857 Atorvastatin Calcium (Atorvastatin Calcium) 80 Mg Tablet, 40 MG PO HS, (Reported) Entered as Reported by: LAURA LINDSAY on 10/12/17 1545 Cholecalciferol (Vitamin D3) (D3-50) 1,250 Mcg Capsule, 1,000 MCG PO DAILY, (Reported) Entered as Reported by: LEIGH SHABAZZ on 02/27/20 0857 Diltiazem HCl (Diltiazem 24Hr ER) 300 Mg Cap.er.24h, 300 MG PO DAILY, (Reported) Entered as Reported by: LEIGH SHABAZZ on 02/27/20 0857 Furosemide (Furosemide) 40 Mg Tablet, 40 MG PO DAILY, (Reported) Entered as Reported by: EUGENE WINTER on 11/12/20 1449 Gabapentin (Gabapentin) 300 Mg/6 Ml Solution, 300 MG PO DAILY, (Reported) Entered as Reported by: LEIGH SHABAZZ on 02/27/20 0857 Glycopyrrolate/Formoterol Fum (Bevespi Aerosphere Inhaler) 10.7 Gm Hfa.aer.ad, 10.7 GM IH BID, (Reported) Entered as Reported by: EUGENE WINTER on 11/12/20 1449 Insulin Aspart (Novolog) 100 Unit/1 Ml Susp, 3 UNIT SQ AC, (Reported) Entered as Reported by: LEIGH SHABAZZ on 02/27/20 0900 Insulin Determir (Levemir) 1,000 Units/10 Ml Soln, 10 UNITS SQ HS, (Reported) Entered as Reported by: LEIGH SHABAZZ on 02/27/20 0900 Metformin HCl (Metformin HCl) 1,000 Mg Tablet, 1,000 MG PO BID Prescribed by: LASHAY LIRA on 02/27/20 1026 [place]-3 Fatty Acids/Fish Oil ([place] 3 Fish Oil Softgel) 1 Each Capsule.dr, 2 EACH PO DAILY, (Reported) Entered as Reported by: LEIGH SHABAZZ on 02/27/20 0857 Tamsulosin HCl (Flomax) 0.4 Mg Cap, 0.4 MG PO HS, (Reported) Entered as Reported by: EUGENE WINTER on 11/12/20 1447 Past Psnqeva-Razcre-Rjddvi Hx Patient Social History Smoking Status: Former Smoker (roughly 100 pack year history) Former Smoker, Quit: Aug 01, 2015 Type Used: Cigarettes Recent Hopitalizations: Yes ([facility] X2 NIGHTS THEN TRANSFERRED TO FOR PNEU & POOR APPITITE) Alcohol Use?: No Immunizations Up To Date Tetanus Booster (TDap): Unknown Date of Pneumonia Vaccine: Jan 05, 2019 Date of Influenza Vaccine: Jan 04, 2020 Seasonal Allergies Seasonal Allergies: No Surgeries History of Surgeries: Yes (abd aneurysm repair, renal stents, turbt X2, circ, SEVERAL skin ca removal) Surgeries: Bladder Surgery, Gallbladder, Pneumonectomy, Vascular Surgery Respiratory History of Respiratory Disorde: Yes (LUNG CANCER; PT WEARS O2 CONT. AT 3L N/C) Respiratory Disorders: Pneumonia, COPD Cardiovascular History of Cardiac Disorders: Yes (QUESTIONABLE HEART VALVE ISSUE) Cardiac Disorders: Aneurysm, Valvular Heart Disease Neurological History of Neurological Disord: No (QUESTIONABLE NEUROPATHY IN FEET) Neurological Disorders: Headaches /Migraines, Neuropathy Reproductive System Hx Reproductive Disorders: No Sexually Transmitted Disease: No HIV/AIDS: No Genitourinary History of Genitourinary Disor: Yes (BLADDER CANCER) Genitourinary Disorders: Renal Failure Gastrointestinal History of Gastrointestinal Di: Yes Gastrointestinal Disorders: Chronic Constipation, Gall Bladder Disease Musculoskeletal History of Musculoskeletal Dis: Yes Musculoskeletal Disorders: Arthritis, Back Injury Endocrine History of Endocrine Disorders: Yes Endocrine Disorders: Diabetes, Insulin dep HEENT History of HEENT Disorders: Yes (WEARS GLASSES) HEENT Disorders: Chronic Eye Infection Hearing Impairment: Denies, Bilateral Hearing Aide Cancer History of Cancer: Yes Cancer: Bladder, Lung, Skin Psychosocial History of Psychiatric Problem: No Integumentary History of Skin or Integumenta: Yes (HX SKIN CANCER) Blood Transfusions History of Blood Disorders: No Adverse Reaction to a Blood Tr: No Review of Systems-General Constitutional: No fever; other (pt is ventilated and sedated) Respiratory: short of breath, other (pt is ventilated) Cardiovascular: Hx of Intervention (AAA repair in ) Gastrointestinal: constipation (hx of chronic constipation); No jaundice Genitourinary: No hematuria; other (pt is catheterized, draining yellow urine) Musculoskeletal: joint pain (hx of arthritis), muscle twitching (intermittent twitching noted on exam, unknown etiology) Skin: No change in color; hx of skin cancer Psychiatric/Neurological: Other (unable to ask about psych symptoms due to condition, no hx found in documentation) Physical Exam-General Problems Physical Exam Vital Signs Vital Signs - First Documented 01/25/22 01/25/22 22:15 22:21 Temp 36.3 Pulse 90 Resp 25 B/P (MAP) 161/81 (107) Pulse Ox 100 O2 Delivery Mechanical Ventilator O2 Flow Rate 35.00 FiO2 75 Capillary Refill : Less Than 3 Seconds General Appearance: moderate distress, other (pt is intubated) Neck: supple; No carotid bruit Respiratory: decreased breath sounds (left lower lobe); No accessory muscle use Cardiovascular: no murmur, tachycardia (104) Peripheral Pulses: 2+ Dorsalis Pedis (R), 2+ Left Dors-Pedis (L), 2+ Radial Pulses (R), 2+ Radial Pulses (L) Gastrointestinal: normal bowel sounds, soft, other (pt unable to report presence or absence of tenderness) Rectal: deferred Extremities: no pedal edema, normal capillary refill, other (hx of neuropathy in LE) Neurologic/Psychiatric: No alert, No oriented x 3; other (unable to access motor or sensory defecits) Skin: normal color, warm/dry; No diaphoresis Lymphatic: no adenopathy (cervical) Data Review Labs Laboratory Tests 01/25/22 22:49: White Blood Count 7.9, Red Blood Count 3.54L, Hemoglobin 10.9L, Hematocrit 35L, Mean Corpuscular Volume 98, Mean Corpuscular Hemoglobin 31, Mean Corpuscular Hemoglobin Concent 31L, Red Cell Distribution Width 13.0, Platelet Count 108L, Mean Platelet Volume 11.0, Immature Granulocyte % (Auto) 1, Neutrophils (%) (Auto) 85H, Lymphocytes (%) (Auto) 6L, Monocytes (%) (Auto) 8, Eosinophils (%) (Auto) 0, Basophils (%) (Auto) 0, Neutrophils # (Auto) 6.7, Lymphocytes # (Auto) 0.4L, Monocytes # (Auto) 0.6, Eosinophils # (Auto) 0.0, Basophils # (Auto) 0.0, Immature Granulocyte # (Auto) 0.1, Neutrophils % (Manual) 86, Lymphocytes % (Manual) 6, Monocytes % (Manual) 6, Eosinophils % (Manual) 1, Myelocytes % 1, Percent Immature Platelet Fraction 5.2, Elliptocytes SLIGHT, Sodium Level 140, Potassium Level 5.0, Chloride Level 102, Carbon Dioxide Level 25, Anion Gap 13, Blood Urea Nitrogen 40H, Creatinine 2.20H, Estimat Glomerular Filtration Rate 30, BUN/Creatinine Ratio 18, Glucose Level 299H, Lactic Acid Level 1.63, Calcium Level 8.7, Corrected Calcium 9.3, Total Bilirubin 0.7, Aspartate Amino Transf (AST/SGOT) 14, Alanine Aminotransferase (ALT/SGPT) 15, Alkaline Phosphatase 105, Total Protein 6.1L, Albumin 3.3, Triglycerides Level 177H, Procalcitonin 0.06 01/25/22 22:53: B-Type Natriuretic Peptide 387.7H 01/25/22 23:17: Blood Gas Puncture Site RIGHT ARTLINE, Blood Gas Patient Temperature 36.3, Arterial Blood pH 7.35L, Arterial Blood Partial Pressure CO2 50H, Arterial Blood Partial Pressure O2 49L, Arterial Blood HCO3 27, Arterial Blood Total CO2 28.5, Arterial Blood Oxygen Saturation 91L, Arterial Blood Base Excess 1.7, Tuan Test ART LINE, Blood Gas Ventilator Setting YES, Blood Gas Inspired Oxygen 100% 01/26/22 04:10: White Blood Count 8.2, Red Blood Count 3.13L, Hemoglobin 9.8L, Hematocrit 30L, Mean Corpuscular Volume 97, Mean Corpuscular Hemoglobin 31, Mean Corpuscular Hemoglobin Concent 32, Red Cell Distribution Width 13.2, Platelet Count 110L, Mean Platelet Volume 10.7, Immature Granulocyte % (Auto) 1, Neutrophils (%) (Auto) 80H, Lymphocytes (%) (Auto) 8L, Monocytes (%) (Auto) 11, Eosinophils (%) (Auto) 0, Basophils (%) (Auto) 0, Neutrophils # (Auto) 6.5, Lymphocytes # (Auto) 0.7L, Monocytes # (Auto) 0.9, Eosinophils # (Auto) 0.0, Basophils # (Auto) 0.0, Immature Granulocyte # (Auto) 0.1, Sodium Level 142, Potassium Level 4.2, Chloride Level 106, Carbon Dioxide Level 26, Anion Gap 10, Blood Urea Nitrogen 43H, Creatinine 2.31H, Estimat Glomerular Filtration Rate 29, BUN/Creatinine Ratio 19, Glucose Level 212H, Calcium Level 8.3L, Corrected Calcium 9.2, Total Bilirubin 0.4, Aspartate Amino Transf (AST/SGOT) 11, Alanine Aminotransferase (ALT/SGPT) 12, Alkaline Phosphatase 89, Total Protein 5.3L, Albumin 2.9L, Blood Gas Puncture Site R RAD ARTLINE, Blood Gas Patient Temperature 36.7, Arterial Blood pH 7.36L, Arterial Blood Partial Pressure CO2 54H, Arterial Blood Partial Pressure O2 58L, Arterial Blood HCO3 30H, Arterial Blood Total CO2 31.1H, Arterial Blood Oxygen Saturation 93L, Arterial Blood Base Excess 4.3H, Tuan Test ART LINE, Blood Gas Ventilator Setting YES, Blood Gas Inspired Oxygen 60%, Phosphorus Level 3.3, Magnesium Level 1.9 Radiology Indication: Dyspnea, follow-up pneumonia. Comparison: 01/25/2022. Discussion: Single portable upright view of the chest was obtained. Mild cardiomegaly is stable. Left pleural effusion is stable to slightly increased. Central pulmonary infiltrates are again noted bilaterally which are slightly decreased from the prior exam given differences in technique. Endotracheal tube, enteric tube, and right IJ central line are stable. No pneumothorax or osseous abnormality. Impression: 1. Cardiomegaly and left effusion are essentially stable. 2. Pulmonary infiltrates are slightly decreased. Dictated on workstation # [id number] Dict: 01/26/22 0635 Trans: 01/26/22 0650 Assessment/Plan Assessment/Plan Assessment/Plan Acute respiratory failure/ intubation PNA Lung Cancer Bladder cancer COPD CKD DM with insulin dependence Plan: Surgery has been consulted for possible bronchoscopy to remove mucus plugging in an attempt to alleviate respiratory distress. PNA is being treated with cefepime. CKD and DM managed by medicine. LEIGH TAYLOR DO 01/26/22 1410: History of Present Illness History of Present Illness Time Seen by Provider: 12:07 History of Present Illness Surgery asked to consult regarding possible bronchoscopy. Pt was transferred from [place] and apparently had a complete whiteout of one of his lungs, suspected mucous plug. Pt is currently intubated and sedated. All information obtained from chart. Allergies and Home Medications Allergies Coded Allergies: enalapril (Verified Adverse Reaction, Intermediate, COUGH, 09/07/14) Patient Home Medication List Home Medication List Reviewed: Yes Aspirin (Aspirin) 81 Mg Tab.chew, 81 MG PO DAILY, (Reported) Entered as Reported by: LEIGH SHABAZZ on 02/27/20 0857 Atorvastatin Calcium (Atorvastatin Calcium) 80 Mg Tablet, 40 MG PO HS, (Reported) Entered as Reported by: LAURA LINDSAY on 10/12/17 1545 Cholecalciferol (Vitamin D3) (D3-50) 1,250 Mcg Capsule, 1,000 MCG PO DAILY, (Reported) Entered as Reported by: LEIGH SHABAZZ on 02/27/20 0857 Diltiazem HCl (Diltiazem 24Hr ER) 300 Mg Cap.er.24h, 300 MG PO DAILY, (Reported) Entered as Reported by: LEIGH SHABAZZ on 02/27/20 0857 Furosemide (Furosemide) 40 Mg Tablet, 40 MG PO DAILY, (Reported) Entered as Reported by: EUGENE WINTER on 11/12/20 1449 Gabapentin (Gabapentin) 300 Mg/6 Ml Solution, 300 MG PO DAILY, (Reported) Entered as Reported by: LEIGH SHABAZZ on 02/27/20 0857 Glycopyrrolate/Formoterol Fum (Bevespi Aerosphere Inhaler) 10.7 Gm Hfa.aer.ad, 10.7 GM IH BID, (Reported) Entered as Reported by: EUGENE WINTER on 11/12/20 1449 Insulin Aspart (Novolog) 100 Unit/1 Ml Susp, 3 UNIT SQ AC, (Reported) Entered as Reported by: LEIGH SHABAZZ on 02/27/20 0900 Insulin Determir (Levemir) 1,000 Units/10 Ml Soln, 10 UNITS SQ HS, (Reported) Entered as Reported by: LEIGH SHABAZZ on 02/27/20 0900 Metformin HCl (Metformin HCl) 1,000 Mg Tablet, 1,000 MG PO BID Prescribed by: LASHAY LIRA on 02/27/20 1026 [place]-3 Fatty Acids/Fish Oil ([place] 3 Fish Oil Softgel) 1 Each Capsule.dr, 2 EACH PO DAILY, (Reported) Entered as Reported by: LEIGH SHABAZZ on 02/27/20 0857 Tamsulosin HCl (Flomax) 0.4 Mg Cap, 0.4 MG PO HS, (Reported) Entered as Reported by: EUGENE WINTER on 11/12/20 1447 Past Qoxmvpp-Vbdeip-Fejdrh Hx Patient Social History Smoking Status: Former Smoker (roughly 100 pack year history) Cardiovascular History of Cardiac Disorders: Yes Cardiac Disorders: Valvular Heart Disease Family Medical History Significant Family History: Other Conditions/Hx (unable to obtain, pt intubated and sedated with no family at bedside) Review of Systems-General ROS-Unable to Obtain: unable to obtain today, everything reported is prior to ETT Constitutional: No fever; other (pt is ventilated and sedated) Respiratory: short of breath Cardiovascular: Hx of Intervention (AAA repair in 03) Gastrointestinal: constipation (hx of chronic constipation); No jaundice Genitourinary: No hematuria; other (pt is catheterized, draining yellow urine) Musculoskeletal: joint pain (hx of arthritis) Skin: hx of skin cancer Psychiatric/Neurological: Other (hx of neuropathy) Physical Exam-General Problems Physical Exam General Appearance: moderate distress, other (pt is intubated) Eyes: Bilateral Eye PERRL, Bilateral Eye EOMI HEENT: No scleral icterus (R), No scleral icterus (L) Neck: No carotid bruit Respiratory: decreased breath sounds (left lower lobe); No accessory muscle use Cardiovascular: no murmur, tachycardia (104) Peripheral Pulses: 2+ Dorsalis Pedis (R), 2+ Left Dors-Pedis (L), 2+ Radial Pulses (R), 2+ Radial Pulses (L) Gastrointestinal: normal bowel sounds, soft, no organomegaly Extremities: no pedal edema, normal capillary refill Neurologic/Psychiatric: other (pt sedated) Skin: normal color, warm/dry Assessment/Plan Assessment/Plan Assessment/Plan Acute respiratory failure/ intubation PNA Lung Cancer Bladder cancer COPD CKD DM with insulin dependence Plan: Surgery has been consulted for possible bronchoscopy to remove mucus plugging in an attempt to alleviate respiratory distress; this appears to have resolved on its own. Will reconsult if needed. PNA is being treated with cefepime. CKD and DM managed by medicine. Supervisory-Addendum Brief Verification & Attestation Participated in pt care: history, MDM, physical Personally performed: exam, history, MDM, supervision of care Care discussed with: Medical Student Procedures: n/a Verification and Attestation of Medical Student E/M Service A medical student performed and documented this service. I then reviewed and verified all information documented by the medical student and made modifications to such information, when appropriate. I personally performed a physical exam, medical decision making and then discussed any differences between the notes and made revisions as necessary to create one note. Leigh Taylor , 01/26/22 , 14:11 SANTO ANGLIN Jan 26, 2022 09:12 LEIGH TAYLOR DO Jan 26, 2022 14:10
--- NOTE | 2022-01-26 09:51 | Consultation-Cardiology ---
HPI-Cardiology Cardiology Consultation Date of Consultation 01/26/22 Date of Admission Time Seen by Provider: 09:47 Indication: Acute respiratory failure HPI 77 years old gentleman with history of small cell lung cancer, had followed with and he was diagnosed with bladder cancer., Chronic kidney disease. Patient was admitted to [facility] for generalized weakness and multiple falls, he deteriorated and progressed to respiratory failure. Patient was initially on conservative management but due to his rapid deterioration family requested to proceed with intubation and he was transferred for higher level of care. He is currently sedated and intubated, heart rate and blood pressure are stable. Unable to provide any further history, history was acquired by reviewing his records. Home Medications & Allergies Allergies: Coded Allergies: enalapril (Verified Adverse Reaction, Intermediate, COUGH, 09/07/14) Home Medication List Reviewed: Yes LJE-Jyqfoi-Aakwna Hx Patient Social History Marital Status: Employed/Student: retired Smoking Status: Former Smoker (roughly 100 pack year history) Type Used: Cigarettes Recent Hopitalizations: Yes ([facility] X2 NIGHTS THEN TRANSFERRED TO FOR PNEU & POOR APPITITE) Alcohol Use?: No Immunizations Up To Date Tetanus Booster (TDap): Unknown Date of Pneumonia Vaccine: Jan 05, 2019 Date of Influenza Vaccine: Jan 04, 2020 Past Medical History Discussed below Family Medical History Family Medical Hx Noncontributory Review of Systems-General Review of Systems Constitutional: see HPI; No fever; other (pt is ventilated and sedated) EENTM: see HPI Respiratory: short of breath, other (pt is ventilated) Cardiovascular: Hx of Intervention (AAA repair in 03) Gastrointestinal: constipation (hx of chronic constipation); No jaundice Genitourinary: No hematuria; other (pt is catheterized, draining yellow urine) Musculoskeletal: joint pain (hx of arthritis), muscle twitching (intermittent twitching noted on exam, unknown etiology) Skin: No change in color; hx of skin cancer Psychiatric/Neurological: Other (unable to ask about psych symptoms due to condition, no hx found in documentation) Reviewed Test Results Reviewed Test Results Lab Laboratory Tests Test 01/25/22 22:49 01/25/22 22:53 01/25/22 23:17 01/26/22 04:10 Range/Units White Blood Count 7.9 8.2 4.3-11.0 10^3/uL Red Blood Count 3.54 L 3.13 L 4.30-5.52 10^6/uL Hemoglobin 10.9 L 9.8 L 13.3-17.7 g/dL Hematocrit 35 L 30 L 40-54 % Mean Corpuscular Volume 98 97 80-99 fL Mean Corpuscular Hemoglobin 31 31 25-34 pg Mean Corpuscular Hemoglobin Concent 31 L 32 32-36 g/dL Red Cell Distribution Width 13.0 13.2 10.0-14.5 % Platelet Count 108 L 110 L 130-400 10^3/uL Mean Platelet Volume 11.0 10.7 9.0-12.2 fL Immature Granulocyte % (Auto) 1 1 % Neutrophils (%) (Auto) 85 H 80 H 42-75 % Lymphocytes (%) (Auto) 6 L 8 L 12-44 % Monocytes (%) (Auto) 8 11 0-12 % Eosinophils (%) (Auto) 0 0 0-10 % Basophils (%) (Auto) 0 0 0-10 % Neutrophils # (Auto) 6.7 6.5 1.8-7.8 10^3/uL Lymphocytes # (Auto) 0.4 L 0.7 L 1.0-4.0 10^3/uL Monocytes # (Auto) 0.6 0.9 0.0-1.0 10^3/uL Eosinophils # (Auto) 0.0 0.0 0.0-0.3 10^3/uL Basophils # (Auto) 0.0 0.0 0.0-0.1 10^3/uL Immature Granulocyte # (Auto) 0.1 0.1 0.0-0.1 10^3/uL Neutrophils % (Manual) 86 % Lymphocytes % (Manual) 6 % Monocytes % (Manual) 6 % Eosinophils % (Manual) 1 % Myelocytes % 1 % Percent Immature Platelet Fraction 5.2 0.0-7.6 % Elliptocytes SLIGHT Sodium Level 140 142 135-145 MMOL/L Potassium Level 5.0 4.2 3.6-5.0 MMOL/L Chloride Level 102 106 98-107 MMOL/L Carbon Dioxide Level 25 26 21-32 MMOL/L Anion Gap 13 10 5-14 MMOL/L Blood Urea Nitrogen 40 H 43 H 7-18 MG/DL Creatinine 2.20 H 2.31 H 0.60-1.30 MG/DL Estimat Glomerular Filtration Rate 30 29 BUN/Creatinine Ratio 18 19 Glucose Level 299 H 212 H 70-105 MG/DL Lactic Acid Level 1.63 0.50-2.00 MMOL/L Calcium Level 8.7 8.3 L 8.5-10.1 MG/DL Corrected Calcium 9.3 9.2 8.5-10.1 MG/DL Total Bilirubin 0.7 0.4 0.1-1.0 MG/DL Aspartate Amino Transf (AST/SGOT) 14 11 5-34 U/L Alanine Aminotransferase (ALT/SGPT) 15 12 0-55 U/L Alkaline Phosphatase 105 89 40-136 U/L Total Protein 6.1 L 5.3 L 6.4-8.2 GM/DL Albumin 3.3 2.9 L 3.2-4.5 GM/DL Triglycerides Level 177 H <150 MG/DL Procalcitonin 0.06 <0.10 NG/ML B-Type Natriuretic Peptide 387.7 H <100.0 PG/ML Blood Gas Puncture Site RIGHT ARTLINE R RAD ARTLINE Blood Gas Patient Temperature 36.3 36.7 Arterial Blood pH 7.35 L 7.36 L 7.37-7.43 Arterial Blood Partial Pressure CO2 50 H 54 H 35-45 MMHG Arterial Blood Partial Pressure O2 49 L 58 L 79-93 MMHG Arterial Blood HCO3 27 30 H 23-27 MMOL/L Arterial Blood Total CO2 28.5 31.1 H 21.0-31.0 MMOL/L Arterial Blood Oxygen Saturation 91 L 93 L 94-100 % Arterial Blood Base Excess 1.7 4.3 H -2.5-2.5 MMOL/L Tuan Test ART LINE ART LINE Blood Gas Ventilator Setting YES YES Blood Gas Inspired Oxygen 100% 60% Phosphorus Level 3.3 2.3-4.7 MG/DL Magnesium Level 1.9 1.6-2.4 MG/DL Radiology Indication: Dyspnea, follow-up pneumonia. Comparison: 01/25/2022. Discussion: Single portable upright view of the chest was obtained. Mild cardiomegaly is stable. Left pleural effusion is stable to slightly increased. Central pulmonary infiltrates are again noted bilaterally which are slightly decreased from the prior exam given differences in technique. Endotracheal tube, enteric tube, and right IJ central line are stable. No pneumothorax or osseous abnormality. Impression: 1. Cardiomegaly and left effusion are essentially stable. 2. Pulmonary infiltrates are slightly decreased. Dictated on workstation # [id number] Dict: 01/26/22 0635 Trans: 01/26/22 0650 Physical Exam Physical Exam Vital Signs Vital Signs - First Documented 01/25/22 01/25/22 22:15 22:21 Temp 36.3 Pulse 90 Resp 25 B/P (MAP) 161/81 (107) Pulse Ox 100 O2 Delivery Mechanical Ventilator O2 Flow Rate 35.00 FiO2 75 Capillary Refill : Less Than 3 Seconds Height, Weight, BMI Height: 5'10.00" Weight: 175lbs. 0.0oz. 79.836492in; 24.09 BMI Method: General Appearance: No Apparent Distress, Chronically ill, Mild Distress, Other (sedated and intubated) Respiratory: No Accessory Muscle Use, No Respiratory Distress, Decreased Breath Sounds, Other (RN says breath sounds in both lungs but rhonchi) Cardiovascular: Regular Rate, Rhythm Extremity: Pedal Edema (+2 leg edema) Skin: Normal Color, Warm/Dry A/P-Cardiology Admission Diagnosis Acute respiratory failure Acute exacerbation of COPD Lung cancer Bladder cancer Acute renal insufficiency Assessment/Plan Acute respiratory failure, history of chronic respiratory insufficiency Rapid deterioration resulted in intubation. Managed by medical team History of small cell lung cancer, was treated at and had a recent lung biopsy. Bladder cancer, newly diagnosed, Tobaccoism, patient has been active smoker until 2018. Severe COPD, patient was maintained on 6 L oxygen at home. Managed by medical team Hypertension, monitor blood pressure Chronic kidney disease. Baseline creatinine around 2.4, continue to monitor renal function Diabetes mellitus, followed and managed by primary care physician Generalized weakness and debility Weight loss. Overall poor prognosis LASHAY LIRA MD Jan 26, 2022 09:51
[2022-01-26] MEDS ORDERED: NS IV 500 ML 500 ML ONE (10:13)
[2022-01-26] MEDS ORDERED: NS IV 500 ML 500 ML IV SCH (10:30)
[2022-01-26] MEDS: NS IV 1000 ML 1,000 ML IV SCH (13:41)
[2022-01-26] MEDS: fentaNYL DRIP PRE-MIX 250 ML IV SCH (23:49)
[2022-01-27 02:17] VITALS: BP 119/46
[2022-01-27] MEDS: RT-ALBUTEROL/IPRATROPIUM 3 ML (DUONEB) VIAL INH SCH ×6 (02:17→22:33)
[2022-01-27] MEDS: NS IV 1000 ML 1,000 ML IV SCH ×2 (03:17→14:10)
[2022-01-27 03:29] LABS: ABG BASE EXCESS 3.4 MMOL/L (-2.5-2.5); ABG OXYGEN SATURATION 95 % (94-100); ABG PCO2 53 MMHG (35-45); ABG PH 7.35 (7.37-7.43); ABG PO2 70 MMHG (79-93); ABG TCO2 30.2 MMOL/L (21.0-31.0); BASOPHILS % (AUTO) 0 % (0-10); EOSINOPHILS # (AUTO) 0.1 10^3/uL (0.0-0.3); EOSINOPHILS % (AUTO) 1 % (0-10); HEMATOCRIT 30 % (40-54); HEMOGLOBIN 9.6 g/dL (13.3-17.7); LYMPHOCYTES # (AUTO) 0.7 10^3/uL (1.0-4.0); LYMPHOCYTES % (AUTO) 6 % (12-44); MEAN CORPUSCULAR HEMOGLOBIN 31 pg (25-34); MEAN CORPUSCULAR HGB CONC 32 g/dL (32-36); MEAN CORPUSCULAR VOLUME 97 fL (80-99); MEAN PLATELET VOLUME 10.7 fL (9.0-12.2); MONOCYTES # (AUTO) 1.1 10^3/uL (0.0-1.0); MONOCYTES % (AUTO) 11 % (0-12); NEUTROPHILS # (AUTO) 8.3 10^3/uL (1.8-7.8); NEUTROPHILS % (AUTO) 82 % (42-75); PLATELET COUNT 134 10^3/uL (130-400); WHITE BLOOD COUNT 10.2 10^3/uL (4.3-11.0)
[2022-01-27 03:30] LABS: ALLENS TEST ART LINE; INSPIRED O2 60%; PATIENT TEMP 37; VENTILATOR YES
[2022-01-27 03:42] LABS: ALBUMIN 2.7 GM/DL (3.2-4.5); POTASSIUM 3.9 MMOL/L (3.6-5.0)
[2022-01-27 03:43] LABS: CALCIUM 7.9 MG/DL (8.5-10.1)
[2022-01-27 03:45] LABS: TOTAL PROTEIN 5.1 GM/DL (6.4-8.2)
[2022-01-27 03:46] LABS: BILIRUBIN,TOTAL 0.4 MG/DL (0.1-1.0)
[2022-01-27 03:48] LABS: CREATININE SERUM 2.35 MG/DL (0.60-1.30); PHOSPHORUS 2.8 MG/DL (2.3-4.7)
[2022-01-27 03:51] LABS: MAGNESIUM 1.8 MG/DL (1.6-2.4)
[2022-01-27] MEDS: POTASSIUM CL 10MEQ/50ML IVPB 50 ML IV SCH (04:24)
[2022-01-27] MEDS: KCL 20 MEQ TAB (K-DUR) PO SCH (04:24)
[2022-01-27] MEDS: MAGNESIUM 1 GM/100 ML IVPB 100 ML IV SCH (04:24)
[2022-01-27] MEDS: inSUlin ASPART (NovoLOG) 1 UNIT/0.01 ML (CHARGE PER UNIT) SC SCH ×4 (05:58→23:50)
[2022-01-27] MEDS: PROPOFOL DRIP (ICU) 100 ML IV SCH ×3 (06:07→21:50)
[2022-01-27 07:04] VITALS: BP 131/41
--- NOTE | 2022-01-27 07:36 | Physical Therapy Progress Note ---
Therapy Progress Note Patient is currently sedated and intubated. PT will monitor patient status and initiate treatment when patient is medically stable and able to actively participate with skilled therapy. ALEXI HORN PT Jan 27, 2022 07:36
--- NOTE | 2022-01-27 07:55 | Tele-ICU Progress Note ---
Subjective Date Seen by a Provider: Jan 27, 2022 Time Seen by a Provider: 07:50 Subjective/Events-last exam Remains on AC 20, Vt 450, FiO2 75%, now 65%PEEP 8 still full code, sedated on Propofol 25, Fentanyl 75, some spontaneous eye opening. CXR 01/26 shows bilateral infiltrates RLL > LLL, looks worse today ABG 7.35/53/70 Moderate suctioning needs, yellowish, no blood, full code Sepsis Event Evaluation Height, Weight, BMI Height: 5'10.00" Weight: 175lbs. 0.0oz. 79.110596uf; 24.45 BMI Method: Focused Exam Lactate Level 01/25/22 22:49: Lactic Acid Level 1.63 Exam Exam Patient acknowledged, consented, and participated in this virtual visit which was conducted using real time audio/video Vital Signs Date Time Temp Pulse Resp B/P (MAP) Pulse Ox O2 Delivery O2 Flow Rate FiO2 01/27/22 07:13 Mechanical Ventilator 75.00 01/27/22 07:09 93 01/27/22 07:04 93 20 91 80 01/27/22 06:59 Mechanical Ventilator 80.00 01/27/22 06:07 96 129/45 01/27/22 06:00 98 20 111/56 (74) 87 Mechanical Ventilator 60.00 127/43 (71) 01/27/22 05:00 100 20 127/67 (87) 92 Mechanical Ventilator 60.00 151/53 (85) 01/27/22 04:15 60 01/27/22 04:00 100 20 122/73 (89) 92 Mechanical Ventilator 60.00 145/51 (82) 01/27/22 03:50 92 Mechanical Ventilator 60 01/27/22 03:39 101 119/46 01/27/22 03:39 101 119/46 01/27/22 03:23 37.0 01/27/22 03:00 100 20 121/59 (79) 90 Mechanical Ventilator 60.00 139/51 (80) 01/27/22 02:20 Mechanical Ventilator 60.00 01/27/22 02:20 60 01/27/22 02:17 101 20 94 60 01/27/22 02:00 101 20 121/56 (77) 91 Mechanical Ventilator 80.00 153/55 (87) 01/27/22 01:00 103 01/27/22 01:00 103 20 120/57 (78) 96 Mechanical Ventilator 80.00 143/51 (81) 01/27/22 00:00 107 20 122/56 (78) 96 Mechanical Ventilator 80.00 142/46 (78) 01/26/22 23:49 109 146/44 01/26/22 23:49 109 144/46 01/26/22 23:45 80 01/26/22 23:45 94 Mechanical Ventilator 80 01/26/22 23:40 37.1 110 20 116/58 (77) 95 Mechanical Ventilator 80.00 140/45 (76) 01/26/22 23:00 113 20 125/54 (77) 94 Mechanical Ventilator 80.00 150/48 (82) 01/26/22 22:17 98 20 95 80 01/26/22 22:00 98 20 106/61 (76) 96 Mechanical Ventilator 80.00 130/50 (76) 01/26/22 21:00 100 20 115/59 (77) 95 Mechanical Ventilator 80.00 117/46 (69) 01/26/22 20:00 106 20 115/62 (79) 94 Mechanical Ventilator 80.00 145/49 (81) 01/26/22 20:00 103 141/49 01/26/22 19:15 80 01/26/22 19:10 93 Mechanical Ventilator 80 01/26/22 19:00 109 01/26/22 19:00 37.2 108 20 118/51 (73) 93 Mechanical Ventilator 80.00 141/49 (79) 01/26/22 18:58 108 20 94 80 01/26/22 18:00 111 20 125/64 (84) 94 Mechanical Ventilator 80.00 149/38 (75) 01/26/22 17:19 94 Mechanical Ventilator 80.00 01/26/22 17:00 112 20 121/59 (79) 93 Mechanical Ventilator 85.00 139/39 (72) 01/26/22 16:23 85 01/26/22 16:23 95 Mechanical Ventilator 85 01/26/22 16:22 95 Mechanical Ventilator 85.00 01/26/22 16:00 37.1 01/26/22 16:00 106 20 119/60 (79) 95 Mechanical Ventilator 90.00 145/45 (78) 01/26/22 16:00 103 137/45 01/26/22 15:03 101 20 94 90 01/26/22 15:00 105 116/54 (74) 94 Mechanical Ventilator 90.00 116/54 (74) 01/26/22 14:00 104 20 126/58 (80) 93 Mechanical Ventilator 90.00 146/45 (78) 01/26/22 13:51 94 Mechanical Ventilator 90.00 01/26/22 13:00 98 20 111/54 (73) 97 Mechanical Ventilator 100.00 137/42 (73) 01/26/22 12:36 101 01/26/22 12:09 97 Mechanical Ventilator 100 01/26/22 12:07 100 01/26/22 12:00 37.4 01/26/22 12:00 101 19 116/52 (73) 95 Mechanical Ventilator 100.00 127/39 (68) 01/26/22 11:42 Mechanical Ventilator 100.00 01/26/22 11:40 100 20 92 100 01/26/22 11:00 101 20 111/53 (72) 93 Mechanical Ventilator 60.00 124/38 (66) 01/26/22 10:00 98 19 104/49 (67) 94 Mechanical Ventilator 60.00 105/32 (56) 01/26/22 09:52 98 99/51 01/26/22 09:00 103 17 100/49 (66) 94 Mechanical Ventilator 60.00 105/30 (55) 01/26/22 08:00 99 20 122/55 (77) 95 Mechanical Ventilator 60.00 154/50 (84) 01/26/22 08:00 60 I & O 01/27/22 07:00 Intake Total 2090 ml Output Total 1325 ml Balance 765 ml Height & Weight Height: 5'10.00" Weight: 175lbs. 0.0oz. 79.153117wk; 24.45 BMI Method: General Appearance: No Apparent Distress, Chronically ill, Mild Distress, Other (sedated and intubated) Respiratory: No Accessory Muscle Use, No Respiratory Distress, Decreased Breath Sounds, Rales, Other (RN says breath sounds in both lungs but rhonchi) Cardiovascular: Regular Rate, Rhythm Capillary Refill: Less Than 3 Seconds Peripheral Pulses: 2+ Dorsalis Pedis (R), 2+ Left Dors-Pedis (L), 2+ Radial Pulses (R), 2+ Radial Pulses (L) Gastrointestinal: normal bowel sounds, soft, no organomegaly, other (ljiquid stools, no blood) Extremity: Pedal Edema (+3 leg edema) Skin: Normal Color, Warm/Dry Results Lab Laboratory Tests 01/25/22 22:49 01/26/22 04:10 01/27/22 03:22 Assessment/Plan Assessment/Plan Lung Ca with previous left lung collapse probably from mucous, now open. spoke with medical attending, Dr West who will talk to family about goals of care. Not a candidate for SBT today with worsening CXR bilateral PNA, will continue with IV Cefepime, BC still negative No pressors, SpO2 Critical Care: Ventilator Management Time spent with patient (mins): 35 OMID THURMAN MD Jan 27, 2022 07:55
--- NOTE | 2022-01-27 07:58 | Occ Therapy Progress Note ---
Therapy Progress Note Pt is currently intubated/sedated. OT will continue to monitor pt and initiate tx when pt is more medically stable and able to actively participate in skilled therapy. ALAN QUINONES OT Jan 27, 2022 07:58
[2022-01-27] MEDS: CEFEPIME INJECTION 1,000 MG in NS (IVPB) 50 ML IV SCH ×3 (08:39→23:47)
[2022-01-27] MEDS: PANTOPRAZOLE 40 MG (PROTONIX) VIAL IV SCH (08:39)
--- NOTE | 2022-01-27 09:08 | Cardiology Progress Note ---
Subjective Date Seen by Provider: Jan 27, 2022 Time Seen by Provider: 09:06 Subjective/Events-last exam Patient was seen and evaluated Ventilator dependent Review of Systems General: Other (Unable to provide review of system) Focused Exam Lactate Level 01/25/22 22:49: Lactic Acid Level 1.63 Objective-Cardiology Exam Last Set of Vital Signs Vital Signs 01/27/22 01/27/22 08:00 08:08 Temp 36.7 Pulse 94 Resp 19 B/P (MAP) 119/66 (83) 136/48 (77) Pulse Ox 95 O2 Delivery Mechanical Ventilator O2 Flow Rate 75.00 FiO2 75 I&O Intake and Output 01/27/22 00:00 Intake Total 1030 ml Output Total 1530 ml Balance -500 ml Intake Oral 0 ml IV Total 1000 ml Other 30 ml Output Urine Total 1530 ml Daily Weight Change Unsure General: Other (sedated and intubated) Lungs: Clear to Auscultation Heart: Regular Rate, Normal S1, Normal S2 Neuro: Other (Sedated and intubated) Psych/Mental Status: Other (Sedated and intubated) Results Lab Laboratory Tests 01/27/22 03:22 A/P-Cardiology Admission Diagnosis Acute respiratory failure Acute exacerbation of COPD Lung cancer Bladder cancer Acute renal insufficiency Assessment/Plan Acute respiratory failure, history of chronic respiratory insufficiency Rapid deterioration resulted in intubation. Managed by medical team History of small cell lung cancer, was treated at and had a recent lung biopsy. Bladder cancer, newly diagnosed, Tobaccoism, patient has been active smoker until 2018. Severe COPD, patient was maintained on 6 L oxygen at home. Managed by medical team Hypertension, monitor blood pressure Chronic kidney disease. Baseline creatinine around 2.4, continue to monitor renal function Diabetes mellitus, followed and managed by primary care physician Generalized weakness and debility Weight loss. Overall poor prognosis LASHAY LIRA MD Jan 27, 2022 09:08
[2022-01-27 10:14] VITALS: BP 135/50
--- NOTE | 2022-01-27 10:32 | Diagnostic Imaging Report ---
CHEST 1 VIEW, AP/PA ONLY Indication: Intubation Comparison: 01/26/2022 Findings: Stable ET and enteric tubes. Stable right IJ central venous catheter. Bilateral perihilar and basilar pulmonary opacities have worsened. Small pleural effusions are similar. No pneumothorax. Stable cardiac silhouette. Impression: 1. Stable support devices. 2. Worsening of bilateral perihilar pulmonary opacities and pleural effusions. Differential would include multifocal pneumonia, edema and/or atelectasis. Dictated by: Dictated on workstation # [id number]
--- NOTE | 2022-01-27 12:40 | Progress Note ---
HIRO DAVISON 01/27/22 1240: Subjective Date Seen by a Provider: Jan 27, 2022 Time Seen by a Provider: 10:10 Subjective/Events-last exam Nhan Galeano. 77 YO male with a PMH of bladder cancer, small cell lung cancer, CKD, insulin dependent DM, CAD, and COPD. He is currently intubated and sedated at this time. Ventilated at 450/20/8/65%. ABG revealed 7.35, 53, 70. Review of Systems General: Other (unable to obtain secondary to intubation) Focused Exam Lactate Level 01/25/22 22:49: Lactic Acid Level 1.63 Objective Exam Last Set of Vital Signs Vital Signs Date Time Temp Pulse Resp B/P (MAP) Pulse Ox O2 Delivery O2 Flow Rate FiO2 01/27/22 11:00 87 19 131/63 (85) 94 Mechanical Ventilator 65.00 01/27/22 10:14 65 01/27/22 08:00 36.7 Capillary Refill : Less Than 3 Seconds I&O Intake and Output 01/27/22 00:00 Intake Total 1030 ml Output Total 1530 ml Balance -500 ml Intake Oral 0 ml IV Total 1000 ml Other 30 ml Output Urine Total 1530 ml Daily Weight Change Unsure General: Other (Pt is intubated and sedated at this time. ) HEENT: Atraumatic Neck: No LAD Lungs: Clear to Auscultation Heart: Regular Rate, Normal S1, Normal S2 Abdomen: Normal Bowel Sounds Extremities: No Clubbing, No Cyanosis, No Edema Skin: No Rashes Results Lab Laboratory Tests 01/26/22 17:16: Glucometer 180H 01/26/22 20:43: Glucometer 164H 01/26/22 23:44: Glucometer 161H 01/27/22 03:22: White Blood Count 10.2, Red Blood Count 3.10L, Hemoglobin 9.6L, Hematocrit 30L, Mean Corpuscular Volume 97, Mean Corpuscular Hemoglobin 31, Mean Corpuscular Hemoglobin Concent 32, Red Cell Distribution Width 13.7, Platelet Count 134, Mean Platelet Volume 10.7, Immature Granulocyte % (Auto) 1, Neutrophils (%) (Auto) 82H, Lymphocytes (%) (Auto) 6L, Monocytes (%) (Auto) 11, Eosinophils (%) (Auto) 1, Basophils (%) (Auto) 0, Neutrophils # (Auto) 8.3H, Lymphocytes # (Auto) 0.7L, Monocytes # (Auto) 1.1H, Eosinophils # (Auto) 0.1, Basophils # (Auto) 0.0, Immature Granulocyte # (Auto) 0.1, Blood Gas Puncture Site RIGHT ARTLINE, Blood Gas Patient Temperature 37, Arterial Blood pH 7.35L, Arterial Blood Partial Pressure CO2 53H, Arterial Blood Partial Pressure O2 70L, Arterial Blood HCO3 29H, Arterial Blood Total CO2 30.2, Arterial Blood Oxygen Saturation 95, Arterial Blood Base Excess 3.4H, Tuan Test ART LINE, Blood Gas Ventilator Setting YES, Blood Gas Inspired Oxygen 60%, Sodium Level 141, Potassium Level 3.9, Chloride Level 107, Carbon Dioxide Level 25, Anion Gap 9, Blood Urea Nitrogen 41H, Creatinine 2.35H, Estimat Glomerular Filtration Rate 28, BUN/Creatinine Ratio 17, Glucose Level 181H, Calcium Level 7.9L, Corrected Calcium 8.9, Phosphorus Level 2.8, Magnesium Level 1.8, Total Bilirubin 0.4, Aspartate Amino Transf (AST/SGOT) 10, Alanine Aminotransferase (ALT/SGPT) 10, Alkaline Phosphatase 86, Total Protein 5.1L, Albumin 2.7L 01/27/22 05:58: Glucometer 155H 01/27/22 11:54: Glucometer 152H Microbiology 01/25/22 Gram Stain - Final, Resulted 01/25/22 Sputum Culture, Resulted Pending 01/25/22 Blood Culture - Preliminary, Resulted No growth Assessment/Plan Assessment/Plan Assess & Plan/Chief Complaint Assessment: Acute on chronic respiratory failure requiring intubation at [facility] and transfer to higher level of care Lung cancer s/p treatment and recent lung mass biopsy 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 Continue monitoring/adjusting ventilator settings as needed. IV abx - CXR 01/27/22 reveals worsening of bilateral perihilar pulmonary opacities and pleural effusions. Continue cefepime. Bronch does not appear to be necessary today since left lung has re-expanded Cardiology appreciated Monitor creat EICU appreciated Yesterday the family declined to make him DNR since "he did this 18 months ago and he will come off vent and do well again" LIZBETH WEST DO 01/28/22 0520: Subjective Subjective/Events-last exam Patient is the same No major issues overnight Spoke with eICU bucket chucker Overall prognosis poor Supportive care will continue Objective Exam General: Other (Pt is intubated and sedated at this time. ) Lungs: Other (Diminished breath sounds) Heart: Regular Rate Assessment/Plan Assessment/Plan Assess & Plan/Chief Complaint Continue ventilator Full code Supportive care Supervisory-Addendum Brief Verification & Attestation Participated in pt care: history, MDM, physical Personally performed: exam, history, MDM, supervision of care Care discussed with: Medical Student Procedures: n/a Results interpretation: Verified all documentation Verification and Attestation of Medical Student E/M Service A medical student performed and documented this service in my presence. I reviewed and verified all information documented by the medical student and made modifications to such information, when appropriate. I personally performed the physical exam and medical decision making. Lizbeth West, Jan 28, 2022,05:19 HIRO DAVISON Jan 27, 2022 12:40 LIZBETH WEST DO Jan 28, 2022 05:20
[2022-01-27 15:07] VITALS: BP 121/45
[2022-01-27] MEDS ORDERED: TMSL.4C PO (15:21)
[2022-01-27] MEDS ORDERED: GABA300C PO (15:21)
[2022-01-27] MEDS ORDERED: MELA3TAB39 PO (15:21)
[2022-01-27] MEDS ORDERED: VITA-259 PO (15:21)
[2022-01-27] MEDS ORDERED: CHOL10004 PO (15:21)
[2022-01-27] MEDS ORDERED: DILT300C64 PO (15:21)
[2022-01-27] MEDS: fentaNYL DRIP PRE-MIX 250 ML IV SCH (16:35)
[2022-01-27 18:49] VITALS: BP 142/53
[2022-01-27 22:33] VITALS: BP 131/50
[2022-01-28 02:57] VITALS: BP 141/59
[2022-01-28] MEDS: RT-ALBUTEROL/IPRATROPIUM 3 ML (DUONEB) VIAL INH SCH ×6 (02:57→21:54)
[2022-01-28] MEDS: PROPOFOL DRIP (ICU) 100 ML IV SCH ×4 (04:44→23:11)
[2022-01-28] MEDS: fentaNYL DRIP PRE-MIX 250 ML IV SCH ×2 (04:44→16:37)
[2022-01-28 04:46] LABS: ABG BASE EXCESS 0.5 MMOL/L (-2.5-2.5); ABG OXYGEN SATURATION 97 % (94-100); ABG PCO2 46 MMHG (35-45); ABG PH 7.35 (7.37-7.43); ABG PO2 79 MMHG (79-93); BASOPHILS % (AUTO) 0 % (0-10); EOSINOPHILS # (AUTO) 0.3 10^3/uL (0.0-0.3); EOSINOPHILS % (AUTO) 4 % (0-10); HEMATOCRIT 30 % (40-54); HEMOGLOBIN 9.7 g/dL (13.3-17.7); LYMPHOCYTES # (AUTO) 0.6 10^3/uL (1.0-4.0); LYMPHOCYTES % (AUTO) 8 % (12-44); MEAN CORPUSCULAR HEMOGLOBIN 31 pg (25-34); MEAN CORPUSCULAR HGB CONC 32 g/dL (32-36); MEAN CORPUSCULAR VOLUME 96 fL (80-99); MEAN PLATELET VOLUME 10.4 fL (9.0-12.2); MONOCYTES # (AUTO) 0.8 10^3/uL (0.0-1.0); MONOCYTES % (AUTO) 10 % (0-12); NEUTROPHILS # (AUTO) 5.8 10^3/uL (1.8-7.8); NEUTROPHILS % (AUTO) 78 % (42-75); PLATELET COUNT 142 10^3/uL (130-400); WHITE BLOOD COUNT 7.5 10^3/uL (4.3-11.0)
[2022-01-28 04:47] LABS: ALLENS TEST ART LINE; INSPIRED O2 65%; PATIENT TEMP 36.3; VENTILATOR YES
[2022-01-28 05:07] LABS: ALBUMIN 2.4 GM/DL (3.2-4.5); BILIRUBIN,TOTAL 0.4 MG/DL (0.1-1.0); CALCIUM 7.9 MG/DL (8.5-10.1); CREATININE SERUM 2.18 MG/DL (0.60-1.30); MAGNESIUM 1.8 MG/DL (1.6-2.4); PHOSPHORUS 3.2 MG/DL (2.3-4.7); POTASSIUM 3.9 MMOL/L (3.6-5.0)
[2022-01-28] MEDS: POTASSIUM CL 10MEQ/50ML IVPB 50 ML IV SCH (05:21)
[2022-01-28] MEDS: KCL 20 MEQ TAB (K-DUR) PO SCH (05:21)
[2022-01-28] MEDS: MAGNESIUM 1 GM/100 ML IVPB 100 ML IV SCH (05:21)
[2022-01-28] MEDS: inSUlin ASPART (NovoLOG) 1 UNIT/0.01 ML (CHARGE PER UNIT) SC SCH ×4 (05:21→23:47)
[2022-01-28] MEDS: NS IV 1000 ML 1,000 ML IV SCH ×2 (06:13→20:45)
--- NOTE | 2022-01-28 06:41 | Occ Therapy Progress Note ---
Therapy Progress Note Pt currently intubated. OT to monitor pt's status then will initiate treatment when pt is medically stable and able to actively participate in skilled therapy. BRODIE MCNAMARA Jan 28, 2022 06:41
[2022-01-28 07:06] VITALS: BP 139/60
--- NOTE | 2022-01-28 07:31 | Physical Therapy Progress Note ---
Therapy Progress Note Patient is currently sedated and intubated. PT will monitor patient status and initiate treatment when patient is medically stable and able to actively participate with skilled therapy. ALEXI HORN PT Jan 28, 2022 07:31
[2022-01-28] MEDS: CEFEPIME INJECTION 1,000 MG in NS (IVPB) 50 ML IV SCH ×3 (08:18→23:49)
[2022-01-28] MEDS: PANTOPRAZOLE 40 MG (PROTONIX) VIAL IV SCH (08:18)
--- NOTE | 2022-01-28 08:36 | Cardiology Progress Note ---
Subjective Date Seen by Provider: Jan 28, 2022 Time Seen by Provider: 08:35 Subjective/Events-last exam Patient was seen and evaluated at bedside Sedated and intubated Review of Systems General: Other (Unable to provide review of system) Focused Exam Lactate Level 01/25/22 22:49: Lactic Acid Level 1.63 Objective-Cardiology Exam Last Set of Vital Signs Vital Signs 01/28/22 01/28/22 01/28/22 07:37 07:39 08:00 Temp 36.5 Pulse 83 Resp 20 B/P (MAP) 129/64 (85) Pulse Ox 96 O2 Delivery Mechanical Ventilator O2 Flow Rate 65.00 FiO2 65 I&O Intake and Output 01/28/22 00:00 Intake Total 1290 ml Output Total 1700 ml Balance -410 ml Intake Oral 0 ml IV Total 1150 ml Other 140 ml Output Urine Total 1050 ml Gastric Drainage Total 650 ml # Bowel Movements 6 General: Other (Pt is intubated and sedated at this time. ) HEENT: Atraumatic Neck: No LAD Lungs: Other (Diminished breath sounds) Heart: Regular Rate Abdomen: Normal Bowel Sounds Extremities: No Clubbing, No Cyanosis, No Edema Skin: No Rashes Neuro: Other (Sedated and intubated) Psych/Mental Status: Other (Sedated and intubated) Results Lab Laboratory Tests 01/28/22 04:35 A/P-Cardiology Admission Diagnosis Acute respiratory failure Acute exacerbation of COPD Lung cancer Bladder cancer Acute renal insufficiency Assessment/Plan Acute respiratory failure, history of chronic respiratory insufficiency Rapid deterioration resulted in intubation. Managed by medical team History of small cell lung cancer, was treated at and had a recent lung biopsy. Bladder cancer, newly diagnosed, Tobaccoism, patient has been active smoker until 2018. Severe COPD, patient was maintained on 6 L oxygen at home. Managed by medical team Hypertension, monitor blood pressure Chronic kidney disease. Baseline creatinine around 2.4, continue to monitor renal function Diabetes mellitus, followed and managed by primary care physician Generalized weakness and debility Weight loss. Overall poor prognosis LASHAY LIRA MD Jan 28, 2022 08:36
--- NOTE | 2022-01-28 08:44 | Diagnostic Imaging Report ---
Indication: Pneumonia Frontal chest obtained at 0422 a.m. compared to 01/27/2022 ET tube, NG tube and right IJ catheter are all unchanged. There is central vascular congestion with edema and patchy bibasilar infiltrates. The bibasilar infiltrates show modest improvement compared to the previous study. IMPRESSION: Stable life support lines. Central vascular congestion with interstitial edema. There are patchy bilateral infiltrates which have shown a modest improvement compared to yesterday. Dictated by: Dictated on workstation # [id number]
--- NOTE | 2022-01-28 08:57 | Tele-ICU Progress Note ---
Subjective Date Seen by a Provider: Jan 28, 2022 Subjective/Events-last exam This virtual visit was conducted using real time audio/video. Thank you for asking us to see this patient for respiratory insufficiency due to COPD, pna, recent lung cancer dx Recent events: family wish full support. PE: VSS. O2 sat 96% on AC 20/450/65%/+8. HEENT: No obvious masses, adenopathy or JVD. Chest: coarse wheezes on auscultation. CV: RRR S1 S2 No murmur or added sounds. Abd: Non-tender. Bowel sounds Y. : Unremarkable. Franco Y. [employer]'/psychiatric: Grossly intact. No obvious focal findings. Extremities: 1+ edema. Capillary refill < 3 seconds. Skin: unremarkable. Results: Elevated BUN 39, Creat 2.18, BG 113. Decreased . B.35/46/79 on 65%/+8 . CXR: Cardiomeg., L small eff., Hyperinflated, B infilts. Available chart/ vitals / labs / images reviewed. Video assessment done using teleICU camera, rest of exam as per RN. A/P: Respiratory insufficiency: Continue present management with vent, duonebs, prop., fent. Will give 1 dose of medrol 125mg IV in view of wheezing. Monitor for increasing oxygenation needs and/or need for intubation. Critical Care: critically ill patient. Cont. PPI, abx, SSI, SQ hep. Prognosis is extremely poor. Could consult hospice/palliative care. Discussed with CHICA Benson. Asked RN to reach out to eICU if any questions or concerns later. Time spent with patient/coordination of care with other health professionals (mins): 35 Sepsis Event Evaluation Height, Weight, BMI Height: 5'10.00" Weight: 175lbs. 0.0oz. 79.580454wh; 24.45 BMI Method: Focused Exam Lactate Level 01/25/22 22:49: Lactic Acid Level 1.63 Exam Exam Patient acknowledged, consented, and participated in this virtual visit which was conducted using real time audio/video Vital Signs Date Time Temp Pulse Resp B/P (MAP) Pulse Ox O2 Delivery O2 Flow Rate FiO2 01/28/22 08:00 83 20 129/64 (85) 96 Mechanical Ventilator 65.00 01/28/22 07:39 96 Mechanical Ventilator 65 01/28/22 07:37 36.5 01/28/22 07:06 96 27 95 65 01/28/22 07:06 86 01/28/22 07:00 89 19 117/54 (75) 92 Mechanical Ventilator 65.00 () 01/28/22 06:00 93 20 110/51 (70) 91 Mechanical Ventilator 65.00 130/47 (74) 01/28/22 05:00 93 20 114/82 (93) 98 Mechanical Ventilator 65.00 136/53 (80) 01/28/22 04:44 79 141/59 01/28/22 04:44 79 141/59 01/28/22 04:15 75 01/28/22 04:00 36.6 01/28/22 04:00 96 Mechanical Ventilator 65 01/28/22 04:00 81 20 130/67 (88) 97 Mechanical Ventilator 65.00 145/60 (88) 01/28/22 03:00 78 20 131/67 (88) 97 Mechanical Ventilator 65.00 142/63 (89) 01/28/22 02:57 79 20 97 65 01/28/22 02:00 83 20 136/67 (90) 97 Mechanical Ventilator 65.00 144/61 (88) 01/28/22 01:00 84 01/28/22 01:00 84 20 122/61 (81) 96 Mechanical Ventilator 65.00 128/50 (76) 01/28/22 00:13 75 01/28/22 00:00 86 20 123/65 (84) 96 Mechanical Ventilator 65.00 127/47 (73) 01/27/22 23:59 96 Mechanical Ventilator 65 01/27/22 23:00 86 20 135/65 (88) 97 Mechanical Ventilator 65.00 146/57 (86) 01/27/22 22:33 86 20 96 65 01/27/22 22:00 89 20 116/60 (78) 96 Mechanical Ventilator 65.00 131/49 (76) 01/27/22 21:50 89 137/53 01/27/22 21:00 89 20 126/64 (84) 96 Mechanical Ventilator 65.00 137/53 (81) 01/27/22 20:15 65 01/27/22 20:00 92 20 127/62 (83) 96 Mechanical Ventilator 65.00 149/54 (85) 01/27/22 20:00 96 Mechanical Ventilator 65 01/27/22 20:00 36.8 01/27/22 19:00 93 01/27/22 19:00 93 20 124/60 (81) 96 Mechanical Ventilator 65.00 141/50 (80) 01/27/22 18:49 94 20 96 65 01/27/22 18:00 96 19 117/61 (79) 95 Mechanical Ventilator 65.00 01/27/22 17:00 104 19 118/57 (77) 92 Mechanical Ventilator 65.00 01/27/22 16:35 134/93 01/27/22 16:00 65 01/27/22 16:00 92 Mechanical Ventilator 65 01/27/22 16:00 98 23 116/60 (78) 96 Mechanical Ventilator 65.00 01/27/22 15:07 91 20 93 65 01/27/22 15:00 91 19 122/57 (78) 92 Mechanical Ventilator 65.00 01/27/22 14:10 131/46 01/27/22 14:00 94 20 119/62 (81) 95 Mechanical Ventilator 65.00 01/27/22 13:00 98 01/27/22 13:00 98 20 113/58 (76) 93 Mechanical Ventilator 65.00 01/27/22 12:00 102 19 114/62 (79) 94 Mechanical Ventilator 65.00 01/27/22 12:00 94 Mechanical Ventilator 75 01/27/22 12:00 75 01/27/22 11:00 87 19 131/63 (85) 94 Mechanical Ventilator 65.00 01/27/22 10:15 Mechanical Ventilator 65.00 01/27/22 10:14 89 20 94 65 01/27/22 10:00 88 20 129/67 (87) 96 Mechanical Ventilator 75.00 01/27/22 09:00 89 20 118/60 (79) 96 Mechanical Ventilator 75.00 I & O 01/28/22 07:00 Intake Total 80 ml Output Total 1475 ml Balance -1395 ml Height & Weight Height: 5'10.00" Weight: 175lbs. 0.0oz. 79.193418nk; 24.45 BMI Method: General Appearance: No Apparent Distress, Chronically ill, Mild Distress, Other (sedated and intubated) Respiratory: No Accessory Muscle Use, No Respiratory Distress, Decreased Breath Sounds, Rales, Other (RN says breath sounds in both lungs but rhonchi) Cardiovascular: Regular Rate, Rhythm Capillary Refill: Less Than 3 Seconds Peripheral Pulses: 2+ Dorsalis Pedis (R), 2+ Left Dors-Pedis (L), 2+ Radial Pulses (R), 2+ Radial Pulses (L) Gastrointestinal: normal bowel sounds, soft, no organomegaly, other (ljiquid stools, no blood) Extremity: Pedal Edema (+3 leg edema) Skin: Normal Color, Warm/Dry Results Lab Laboratory Tests 01/27/22 03:22 01/28/22 04:35 Assessment/Plan Assessment/Plan See free text. Critical Care: Ventilator Management SHARMILA ESPANA MD Jan 28, 2022 08:57
[2022-01-28] MEDS ORDERED: methylPREDNISolone 125 MG (Solu-MEDROL) VIAL IVP NR (09:00)
[2022-01-28 10:24] VITALS: BP 143/56
--- NOTE | 2022-01-28 10:55 | Progress Note ---
HIRO DAVISON 01/28/22 1055: Subjective Date Seen by a Provider: Jan 28, 2022 Time Seen by a Provider: 09:15 Subjective/Events-last exam Pt resting, on ventilator. He remains the same and had no problems overnight. Overall prognosis is poor, will continue supportive care. He remains full code status per family request. Review of Systems General: Other (unable to obtain secondary to ventilation status. ) Focused Exam Lactate Level 01/25/22 22:49: Lactic Acid Level 1.63 Respiratory: No No Accessory Muscle Use, No No Respiratory Distress; Decreased Breath Sounds, Wheezing (inspiratory) Cardiovascular: Regular Rate, Rhythm, No Gallop, No Murmur Peripheral Pulses: 2+ Radial Pulses (R), 2+ Radial Pulses (L) Skin: normal color, warm/dry Objective Exam Last Set of Vital Signs Vital Signs Date Time Temp Pulse Resp B/P (MAP) Pulse Ox O2 Delivery O2 Flow Rate FiO2 01/28/22 10:24 81 20 91 65 01/28/22 09:00 126/65 (85) Mechanical Ventilator 65.00 01/28/22 07:37 36.5 Capillary Refill : Less Than 3 Seconds I&O Intake and Output 01/28/22 00:00 Intake Total 1290 ml Output Total 1700 ml Balance -410 ml Intake Oral 0 ml IV Total 1150 ml Other 140 ml Output Urine Total 1050 ml Gastric Drainage Total 650 ml # Bowel Movements 6 General: Other (Pt is intubated. ) HEENT: Atraumatic Lungs: Other (decreased breath sounds) Heart: Regular Rate, No Murmurs Abdomen: Normal Bowel Sounds, Soft Extremities: Normal Pulses Skin: No Rashes Neuro: Other (pt sedated and on vent) Results Lab Laboratory Tests 01/27/22 11:54: Glucometer 152H 01/27/22 18:02: Glucometer 125H 01/27/22 23:50: Glucometer 114H 01/28/22 04:35: White Blood Count 7.5, Red Blood Count 3.13L, Hemoglobin 9.7L, Hematocrit 30L, Mean Corpuscular Volume 96, Mean Corpuscular Hemoglobin 31, Mean Corpuscular Hemoglobin Concent 32, Red Cell Distribution Width 14.0, Platelet Count 142, Mean Platelet Volume 10.4, Immature Granulocyte % (Auto) 1, Neutrophils (%) (Auto) 78H, Lymphocytes (%) (Auto) 8L, Monocytes (%) (Auto) 10, Eosinophils (%) (Auto) 4, Basophils (%) (Auto) 0, Neutrophils # (Auto) 5.8, Lymphocytes # (Auto) 0.6L, Monocytes # (Auto) 0.8, Eosinophils # (Auto) 0.3, Basophils # (Auto) 0.0, Immature Granulocyte # (Auto) 0.0, Blood Gas Puncture Site ARTLINE, Blood Gas Patient Temperature 36.3, Arterial Blood pH 7.35L, Arterial Blood Partial Pressure CO2 46H, Arterial Blood Partial Pressure O2 79, Arterial Blood HCO3 26, Arterial Blood Total CO2 27.0, Arterial Blood Oxygen Saturation 97, Arterial Blood Base Excess 0.5, Tuan Test ART LINE, Blood Gas Ventilator Setting YES, Blood Gas Inspired Oxygen 65%, Sodium Level 145, Potassium Level 3.9, Chloride Level 111H, Carbon Dioxide Level 22, Anion Gap 12, Blood Urea Nitrogen 39H, Creatinine 2.18H, Estimat Glomerular Filtration Rate 31, BUN/Creatinine Ratio 18, Glucose Level 113H, Calcium Level 7.9L, Corrected Calcium 9.2, Phosphorus Level 3.2, Magnesium Level 1.8, Total Bilirubin 0.4, Aspartate Amino Transf (AST/SGOT) 10, Alanine Aminotransferase (ALT/SGPT) 11, Alkaline Phosphatase 73, Total Protein 5.0L, Albumin 2.4L, Triglycerides Level 137 Microbiology 01/25/22 Gram Stain - Final, Complete 01/25/22 Sputum Culture - Final, Complete Usual upper respiratory jacqueline 01/25/22 Blood Culture - Preliminary, Resulted No growth Assessment/Plan Assessment/Plan Assess & Plan/Chief Complaint Assessment: Acute on chronic respiratory failure requiring intubation at 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 Urinary retention Fall unable to get off floor at home Weight loss Plan: ICU - day 4 of intubation. Continue ventilator. IV abx - CXR 01/28/22 reveals modest improvement of bilateral patchy infiltrates. Continue cefepime. Cardiology and eICU appreciated Pt remains full code status per family request. Continue supportive care. LIZBETH WEST DO 01/29/22 0522: Subjective Subjective/Events-last exam Pt is still intubated No major changes Vent settings are 450/20/8/65 ABG showed 7.35/46/79 Creatinine is 2.18 No major shifts in status Objective Exam General: Other (Pt is intubated. ) Lungs: Other (decreased breath sounds) Heart: Regular Rate Assessment/Plan Assessment/Plan Assess & Plan/Chief Complaint Monitor closely Supportive care Poor prognosis Supervisory-Addendum Brief Verification & Attestation Participated in pt care: history, MDM, physical Personally performed: exam, history, MDM, supervision of care Care discussed with: Medical Student Procedures: n/a Results interpretation: Verified all documentation Verification and Attestation of Medical Student E/M Service A medical student performed and documented this service in my presence. I reviewed and verified all information documented by the medical student and made modifications to such information, when appropriate. I personally performed the physical exam and medical decision making. Lizbeth West Jan 29, 2022,05:21 HIRO DAVISON Jan 28, 2022 10:55 LIZBETH WEST DO Jan 29, 2022 05:22
[2022-01-28] MEDS ORDERED: FUROSEMIDE 40 MG/4 ML INJ (LASIX) IVP NR (12:00)
[2022-01-28 14:04] VITALS: BP 147/65
[2022-01-28 18:29] VITALS: BP 126/65
[2022-01-28 21:54] VITALS: BP 126/65
[2022-01-29] MEDS: fentaNYL DRIP PRE-MIX 250 ML IV SCH ×4 (00:12→22:58)
[2022-01-29 02:37] VITALS: BP 116/47
[2022-01-29] MEDS: RT-ALBUTEROL/IPRATROPIUM 3 ML (DUONEB) VIAL INH SCH ×6 (02:37→21:26)
[2022-01-29] MEDS: PROPOFOL DRIP (ICU) 100 ML IV SCH ×4 (03:53→22:57)
[2022-01-29 04:36] LABS: ABG BASE EXCESS -8.9 MMOL/L (-2.5-2.5); ABG OXYGEN SATURATION 92 % (94-100); ABG PCO2 35 MMHG (35-45); ABG PO2 67 MMHG (79-93); ABG TCO2 17.7 MMOL/L (21.0-31.0)
[2022-01-29 04:39] LABS: BASOPHILS % (AUTO) 0 % (0-10); EOSINOPHILS % (AUTO) 0 % (0-10); HEMATOCRIT 31 % (40-54); HEMOGLOBIN 9.6 g/dL (13.3-17.7); LYMPHOCYTES # (AUTO) 0.3 10^3/uL (1.0-4.0); LYMPHOCYTES % (AUTO) 5 % (12-44); MEAN CORPUSCULAR HEMOGLOBIN 31 pg (25-34); MEAN CORPUSCULAR HGB CONC 31 g/dL (32-36); MEAN CORPUSCULAR VOLUME 98 fL (80-99); MEAN PLATELET VOLUME 11.1 fL (9.0-12.2); MONOCYTES # (AUTO) 0.3 10^3/uL (0.0-1.0); MONOCYTES % (AUTO) 4 % (0-12); NEUTROPHILS # (AUTO) 6.5 10^3/uL (1.8-7.8); NEUTROPHILS % (AUTO) 91 % (42-75); PLATELET COUNT 166 10^3/uL (130-400); WHITE BLOOD COUNT 7.1 10^3/uL (4.3-11.0)
[2022-01-29 04:41] LABS: ABG PH 7.29 (7.37-7.43)
[2022-01-29 04:44] LABS: ALLENS TEST YES-POS; INSPIRED O2 45%
[2022-01-29 04:45] LABS: PATIENT TEMP 36.3; VENTILATOR YES
[2022-01-29 04:57] LABS: ALBUMIN 2.5 GM/DL (3.2-4.5); BILIRUBIN,TOTAL 0.3 MG/DL (0.1-1.0); CALCIUM 7.7 MG/DL (8.5-10.1); CREATININE SERUM 2.45 MG/DL (0.60-1.30); PHOSPHORUS 7.2 MG/DL (2.3-4.7); POTASSIUM 4.9 MMOL/L (3.6-5.0); TOTAL PROTEIN 5.3 GM/DL (6.4-8.2)
[2022-01-29] MEDS: POTASSIUM CL 10MEQ/50ML IVPB 50 ML IV SCH (05:19)
[2022-01-29] MEDS: MAGNESIUM 1 GM/100 ML IVPB 100 ML IV SCH (05:19)
[2022-01-29] MEDS: KCL 20 MEQ TAB (K-DUR) PO SCH (05:19)
[2022-01-29] MEDS: inSUlin ASPART (NovoLOG) 1 UNIT/0.01 ML (CHARGE PER UNIT) SC SCH ×4 (05:26→23:29)
--- NOTE | 2022-01-29 06:50 | Occ Therapy Progress Note ---
Therapy Progress Note Pt is currently intubated. OT to continue to monitor pt's status then will initiate treatment when pt is medically stable and able to actively participate in skilled therapy. BRODIE MCNAMARA Jan 29, 2022 06:50
[2022-01-29 06:57] VITALS: BP 123/47
--- NOTE | 2022-01-29 07:31 | Diagnostic Imaging Report ---
Indication: Pneumonia Frontal chest obtained at 0507 a.m. and compared to yesterday. ET tube, NG tube and right IJ catheter are all unchanged. There is cardiomegaly. There is stable bibasilar infiltrate. There is increasing left pleural effusion with minimal right pleural effusion. IMPRESSION: Cardiomegaly and unchanged bibasilar infiltrates and central vascular congestion. Increasing left pleural effusion compared to the prior study with minimal right pleural effusion. Stable life support lines. Dictated by: Dictated on workstation # [id number]
--- NOTE | 2022-01-29 08:02 | Physical Therapy Progress Note ---
Therapy Progress Note Patient is currently sedated and intubated. PT will monitor patient status and initiate treatment when patient is medically stable and able to actively participate with skilled therapy. WILMA RIVER PT Jan 29, 2022 08:02
[2022-01-29] MEDS: PANTOPRAZOLE 40 MG (PROTONIX) VIAL IV SCH (08:14)
--- NOTE | 2022-01-29 08:45 | Tele-ICU Progress Note ---
Subjective Date Seen by a Provider: Jan 29, 2022 Subjective/Events-last exam This virtual visit was conducted using real time audio/video. Thank you for asking us to see this patient for respiratory insufficiency due to COPD, pna, recent lung cancer dx Recent events: family wish full support. Seen by Palliative Care. O2 cneeds decreased PE: VSS. O2 sat 96% on AC 20/450/40%/+5. HEENT: No obvious masses, adenopathy or JVD. Chest: coarse on auscultation. No wheezing currently. CV: RRR S1 S2 No murmur or added sounds. Abd: Non-tender. Bowel sounds Y. : Unremarkable. Franco Y. UNIT SECY/psychiatric: Grossly intact. No obvious focal findings. Extremities: Trace edema. Capillary refill < 3 seconds. Skin: unremarkable. Results: Elevated BUN 55, Creat 2.45, BG 223. Decreased . B.29/35/67 on 45%/+5 . CXR: Cardiomeg., L small eff., Hyperinflated, B infilts. Available chart/ vitals / labs / images reviewed. Video assessment done using teleICU camera, rest of exam as per RN. A/P: Respiratory insufficiency: Continue present management with vent, duonebs, prop., fent. Critical Care: critically ill patient. Cont. PPI, abx, SSI, SQ hep. Prognosis is extremely poor. Consulted hospice/palliative care. Discussed with CHICA Benson. Asked RN to reach out to eICU if any questions or concerns later. Time spent with patient/coordination of care with other health professionals (mins): 25 Sepsis Event Sepsis Event Evaluation Height, Weight, BMI Height: 5'10.00" Weight: 175lbs. 0.0oz. 79.916863wh; 24.84 BMI Method: Exam Exam Patient acknowledged, consented, and participated in this virtual visit which was conducted using real time audio/video Vital Signs Date Time Temp Pulse Resp B/P (MAP) Pulse Ox O2 Delivery O2 Flow Rate FiO2 01/29/22 08:25 94 94/45 01/29/22 07:52 36.8 01/29/22 07:00 102 01/29/22 06:57 96 20 97 45 01/29/22 06:00 92 20 93 Mechanical Ventilator 45.00 100/40 (60) 01/29/22 05:00 91 20 92 Mechanical Ventilator 45.00 90/39 (56) 01/29/22 04:15 45 01/29/22 04:12 93 91/38 01/29/22 04:00 93 20 95 Mechanical Ventilator 45.00 91/38 (55) 01/29/22 04:00 95 Mechanical Ventilator 45 01/29/22 03:53 90 116/47 01/29/22 03:51 92 20 94/43 (60) 95 Mechanical Ventilator 45.00 94/34 (54) 01/29/22 03:11 90 116/47 01/29/22 03:00 90 20 92 Mechanical Ventilator 45.00 114/46 (68) 01/29/22 02:37 90 20 93 45 01/29/22 02:00 90 20 92 Mechanical Ventilator 45.00 116/47 (70) 01/29/22 01:00 90 01/29/22 01:00 90 20 91 Mechanical Ventilator 45.00 107/44 (65) 01/29/22 00:12 86 126/65 01/29/22 00:10 45 01/29/22 00:00 88 20 91 Mechanical Ventilator 45.00 113/46 (68) 01/28/22 23:59 90 Mechanical Ventilator 45 01/28/22 23:46 36.6 01/28/22 23:11 86 126/65 01/28/22 23:06 86 126/65 01/28/22 23:00 85 20 90 Mechanical Ventilator 45.00 133/51 (78) 01/28/22 22:00 85 20 94 Mechanical Ventilator 45.00 143/57 (85) 01/28/22 21:54 86 20 97 45 01/28/22 21:00 88 20 96 Mechanical Ventilator 45.00 155/63 (93) 01/28/22 20:37 84 126/65 01/28/22 20:01 45 01/28/22 20:00 92 20 93 Mechanical Ventilator 45.00 147/66 (93) 01/28/22 19:33 98 Mechanical Ventilator 45 01/28/22 19:30 36.5 01/28/22 19:00 86 01/28/22 19:00 86 20 95 Mechanical Ventilator 45.00 157/67 (97) 01/28/22 18:35 98 45.00 01/28/22 18:29 84 20 98 45 01/28/22 18:00 75 15 99 Mechanical Ventilator 55.00 01/28/22 17:50 100 Mechanical Ventilator 55.00 01/28/22 17:00 77 19 95 Mechanical Ventilator 65.00 01/28/22 16:37 80 151/67 01/28/22 16:15 65 01/28/22 16:00 93 Mechanical Ventilator 65 01/28/22 16:00 80 19 94 Mechanical Ventilator 65.00 01/28/22 15:44 36.4 01/28/22 15:00 80 20 93 Mechanical Ventilator 65.00 01/28/22 14:04 80 20 93 65 01/28/22 14:00 80 20 92 Mechanical Ventilator 65.00 01/28/22 13:00 87 Mechanical Ventilator 65.00 01/28/22 12:43 93 138/55 01/28/22 12:38 105 01/28/22 12:15 65 01/28/22 12:00 93 Mechanical Ventilator 65 01/28/22 12:00 36.5 01/28/22 12:00 84 20 88 Mechanical Ventilator 100.00 01/28/22 11:00 85 19 89 Mechanical Ventilator 100.00 01/28/22 10:32 Mechanical Ventilator 100.00 01/28/22 10:30 81 20 88 Mechanical Ventilator 65.00 01/28/22 10:24 81 20 91 65 01/28/22 10:00 84 19 95 Mechanical Ventilator 65.00 01/28/22 09:00 82 20 126/65 (85) 93 Mechanical Ventilator 65.00 I & O 01/29/22 07:00 Intake Total 2260 ml Output Total 3510 ml Balance -1250 ml Height & Weight Height: 5'10.00" Weight: 175lbs. 0.0oz. 79.344064tg; 24.84 BMI Method: General Appearance: No Apparent Distress, Chronically ill, Mild Distress, Other (sedated and intubated) Respiratory: No No Accessory Muscle Use, No No Respiratory Distress; Decreased Breath Sounds, Wheezing (inspiratory) Cardiovascular: Regular Rate, Rhythm, No Gallop, No Murmur Capillary Refill: Less Than 3 Seconds Peripheral Pulses: 2+ Dorsalis Pedis (R), 2+ Left Dors-Pedis (L), 2+ Radial Pulses (R), 2+ Radial Pulses (L) Gastrointestinal: normal bowel sounds, soft, no organomegaly, other (ljiquid stools, no blood) Extremity: Pedal Edema (+3 leg edema) Skin: Normal Color, Warm/Dry Results Lab Laboratory Tests 01/28/22 04:35 01/29/22 04:25 Assessment/Plan Assessment/Plan See free text Critical Care: Ventilator Management SHARMILA ESPANA MD Jan 29, 2022 08:45
[2022-01-29 10:23] VITALS: BP 117/41
--- NOTE | 2022-01-29 11:03 | Cardiology Progress Note ---
Subjective Date Seen by Provider: Jan 29, 2022 Time Seen by Provider: 11:02 Subjective/Events-last exam Patient was seen at bedside, sedated and intubated Review of Systems General: Other (Unable to provide review of system) Objective-Cardiology Exam Last Set of Vital Signs Vital Signs 01/29/22 01/29/22 01/29/22 07:52 10:00 10:23 Temp 36.8 Pulse 89 Resp 20 B/P (MAP) 108/52 (70) Pulse Ox 93 O2 Delivery Mechanical Ventilator O2 Flow Rate 40.00 FiO2 40 I&O Intake and Output 01/29/22 00:00 Intake Total 1780 ml Output Total 3535 ml Balance -1755 ml Intake Oral 0 ml IV Total 1700 ml Tube Feeding 50 ml Other 30 ml Output Urine Total 2925 ml Gastric Drainage Total 610 ml # Bowel Movements 3 General: Other (Pt is intubated. ) HEENT: Atraumatic Neck: No LAD Lungs: Other (decreased breath sounds) Heart: Regular Rate Abdomen: Normal Bowel Sounds, Soft Extremities: Normal Pulses Skin: No Rashes Neuro: Other (pt sedated and on vent) Psych/Mental Status: Other (Sedated and intubated) Results Lab Laboratory Tests 01/29/22 04:25 A/P-Cardiology Admission Diagnosis Acute respiratory failure Acute exacerbation of COPD Lung cancer Bladder cancer Acute renal insufficiency Assessment/Plan Acute respiratory failure, history of chronic respiratory insufficiency Rapid deterioration resulted in intubation. Managed by medical team History of small cell lung cancer, was treated at and had a recent lung biopsy. Bladder cancer, newly diagnosed, Tobaccoism, patient has been active smoker until 2018. Severe COPD, patient was maintained on 6 L oxygen at home. Managed by medical team Hypertension, monitor blood pressure Chronic kidney disease. Baseline creatinine around 2.4, continue to monitor renal function Diabetes mellitus, followed and managed by primary care physician Generalized weakness and debility Weight loss. Overall poor prognosis LASHAY LIRA MD Jan 29, 2022 11:03
--- NOTE | 2022-01-29 11:06 | Progress Note ---
HIRO DAVISON 01/29/22 1106: Subjective Date Seen by a Provider: Jan 29, 2022 Time Seen by a Provider: 09:30 Subjective/Events-last exam Pt ventilated with no change. Vent settings are 450/20/5/40 ABG 7.29/35/67 Kidney function worsening with Cr of 2.45 Remains full code at this time Review of Systems General: Other (unable to obtain due to ventillation status) Objective Exam Last Set of Vital Signs Vital Signs Date Time Temp Pulse Resp B/P (MAP) Pulse Ox O2 Delivery O2 Flow Rate FiO2 01/29/22 10:23 89 20 93 40 01/29/22 10:00 108/52 (70) Mechanical Ventilator 40.00 01/29/22 07:52 36.8 Capillary Refill : Less Than 3 Seconds I&O Intake and Output 01/29/22 00:00 Intake Total 1780 ml Output Total 3535 ml Balance -1755 ml Intake Oral 0 ml IV Total 1700 ml Tube Feeding 50 ml Other 30 ml Output Urine Total 2925 ml Gastric Drainage Total 610 ml # Bowel Movements 3 General: Other (sedated and ventillated ) HEENT: Atraumatic Lungs: Other (decreased breath sounds ) Heart: Regular Rate, Normal S1, Normal S2 Abdomen: Normal Bowel Sounds, Soft Extremities: No Edema, Normal Pulses Skin: No Rashes, No Significant Lesion Results Lab Laboratory Tests 01/28/22 11:29: Glucometer 110 01/28/22 18:21: Glucometer 163H 01/28/22 23:31: Glucometer 163H 01/29/22 04:25: White Blood Count 7.1, Red Blood Count 3.15L, Hemoglobin 9.6L, Hematocrit 31L, Mean Corpuscular Volume 98, Mean Corpuscular Hemoglobin 31, Mean Corpuscular Hemoglobin Concent 31L, Red Cell Distribution Width 14.1, Platelet Count 166, Mean Platelet Volume 11.1, Immature Granulocyte % (Auto) 1, Neutrophils (%) (Auto) 91H, Lymphocytes (%) (Auto) 5L, Monocytes (%) (Auto) 4, Eosinophils (%) (Auto) 0, Basophils (%) (Auto) 0, Neutrophils # (Auto) 6.5, Lymphocytes # (Auto) 0.3L, Monocytes # (Auto) 0.3, Eosinophils # (Auto) 0.0, Basophils # (Auto) 0.0, Immature Granulocyte # (Auto) 0.1, Sodium Level 144, Potassium Level 4.9, Chloride Level 109H, Carbon Dioxide Level 13L, Anion Gap 22H, Blood Urea Nitrogen 55H, Creatinine 2.45H, Estimat Glomerular Filtration Rate 27, BUN/Creatinine Ratio 22, Glucose Level 223H, Calcium Level 7.7L, Corrected Calcium 8.9, Phosphorus Level 7.2H, Magnesium Level 2.0, Total Bilirubin 0.3, Aspartate Amino Transf (AST/SGOT) 11, Alanine Aminotransferase (ALT/SGPT) 11, Alkaline Phosphatase 73, Total Protein 5.3L, Albumin 2.5L, Triglycerides Level 144 01/29/22 04:30: Blood Gas Puncture Site HAN, Blood Gas Patient Temperature 36.3, Arterial Blood pH 7.29*L, Arterial Blood Partial Pressure CO2 35, Arterial Blood Partial Pressure O2 67L, Arterial Blood HCO3 17*L, Arterial Blood Total CO2 17.7L, Arterial Blood Oxygen Saturation 92L, Arterial Blood Base Excess -8.9L, Tuan Test YES-POS, Blood Gas Ventilator Setting YES, Blood Gas Inspired Oxygen 45% Microbiology 01/25/22 Gram Stain - Final, Complete 01/25/22 Sputum Culture - Final, Complete Usual upper respiratory jacqueline 01/25/22 Blood Culture - Preliminary, Resulted No growth Radiology NAME: MARLEN ADAMES [facility] REC#: [id number] PT STATUS: ADM IN : 1945 PHYSICIAN: LIZBETH MONIQUE DO ADMIT DATE: 01/25/22/ICU Signed Date of Exam:01/29/22 CHEST 1 VIEW, AP/PA ONLY Indication: Pneumonia Frontal chest obtained at 0507 a.m. and compared to yesterday. ET tube, NG tube and right IJ catheter are all unchanged. There is cardiomegaly. There is stable bibasilar infiltrate. There is increasing left pleural effusion with minimal right pleural effusion. IMPRESSION: Cardiomegaly and unchanged bibasilar infiltrates and central vascular congestion. Increasing left pleural effusion compared to the prior study with minimal right pleural effusion. Stable life support lines. Dictated by: Dictated on workstation # [id number] Dict: 01/29/22 0725 Trans: 01/29/226 [facility] [id number] Interpreted by: NORMA WORTHY MD Electronically signed by: NORMA WORTHY MD 01/29/22 0756 Assessment/Plan Assessment/Plan Assess & Plan/Chief Complaint Assessment: Respiratory failure Metabolic acidosis Worsening renal function Lung and bladder cancer Severe COPD requiring 6L/min of O2 at home HTN DM insulin dependent Volume overload with elevated BNP at [facility] [place] - CXR today shows worsening of left pleural effusions and small pleural effusions on right Plan: ICU - day 5 of intubation. Continue ventilator management Supportive care with close monitoring Poor prognosis Consider hospice/palliative care LIZBETH MONIQUE DO 01/30/22521: Subjective Subjective/Events-last exam No major changes Still on the ventilator Metabolic acidosis from kidney dysfunction noted Family still insisting he will remain a full code and if dialysis is indicated they want him to receive that also Assessment/Plan Assessment/Plan Assess & Plan/Chief Complaint Monitor kidney function May need transfer to higher level of care if dialysis indicated Prognosis poor Supervisory-Addendum Brief Verification & Attestation Participated in pt care: history, MDM, physical Personally performed: exam, history, MDM, supervision of care Care discussed with: Medical Student Procedures: n/a Results interpretation: Verified all documentation Verification and Attestation of Medical Student E/M Service A medical student performed and documented this service in my presence. I reviewed and verified all information documented by the medical student and made modifications to such information, when appropriate. I personally performed the physical exam and medical decision making. Lizbeth Monique Jan 30, 2022,05:21 HIRO DAVISON Jan 29, 2022 11:06 LIZBETH MONIQUE DO Jan 30, 2022 05:22
[2022-01-29] MEDS: NS IV 1000 ML 1,000 ML IV SCH (11:39)
[2022-01-29] MEDS: CEFEPIME INJECTION 1,000 MG in NS (IVPB) 50 ML IV SCH ×2 (11:39→23:41)
[2022-01-29 15:15] VITALS: BP 100/37
[2022-01-29 18:06] VITALS: BP 120/38
[2022-01-29 21:26] VITALS: BP 118/42
[2022-01-30 01:52] VITALS: BP 125/44
[2022-01-30] MEDS: RT-ALBUTEROL/IPRATROPIUM 3 ML (DUONEB) VIAL INH SCH ×4 (01:52→14:50)
[2022-01-30] MEDS: NS IV 1000 ML 1,000 ML IV SCH (02:25)
[2022-01-30 03:20] LABS: BASOPHILS % (AUTO) 0 % (0-10); EOSINOPHILS # (AUTO) 0.1 10^3/uL (0.0-0.3); EOSINOPHILS % (AUTO) 2 % (0-10); HEMATOCRIT 29 % (40-54); HEMOGLOBIN 9.4 g/dL (13.3-17.7); LYMPHOCYTES # (AUTO) 0.5 10^3/uL (1.0-4.0); LYMPHOCYTES % (AUTO) 8 % (12-44); MEAN CORPUSCULAR HEMOGLOBIN 31 pg (25-34); MEAN CORPUSCULAR HGB CONC 32 g/dL (32-36); MEAN CORPUSCULAR VOLUME 97 fL (80-99); MEAN PLATELET VOLUME 10.3 fL (9.0-12.2); MONOCYTES # (AUTO) 0.6 10^3/uL (0.0-1.0); MONOCYTES % (AUTO) 9 % (0-12); NEUTROPHILS # (AUTO) 5.4 10^3/uL (1.8-7.8); NEUTROPHILS % (AUTO) 80 % (42-75); PLATELET COUNT 194 10^3/uL (130-400); WHITE BLOOD COUNT 6.7 10^3/uL (4.3-11.0)
[2022-01-30 03:28] LABS: ALBUMIN 2.7 GM/DL (3.2-4.5); POTASSIUM 3.6 MMOL/L (3.6-5.0)
[2022-01-30 03:29] LABS: CALCIUM 7.4 MG/DL (8.5-10.1)
[2022-01-30 03:31] LABS: TOTAL PROTEIN 5.4 GM/DL (6.4-8.2)
[2022-01-30 03:32] LABS: BILIRUBIN,TOTAL 0.2 MG/DL (0.1-1.0)
[2022-01-30 03:34] LABS: CREATININE SERUM 2.61 MG/DL (0.60-1.30); PHOSPHORUS 5.9 MG/DL (2.3-4.7)
[2022-01-30 03:38] LABS: ABG BASE EXCESS -6.5 MMOL/L (-2.5-2.5); ABG OXYGEN SATURATION 94 % (94-100); ABG PCO2 45 MMHG (35-45); ABG PO2 71 MMHG (79-93); ABG TCO2 20.7 MMOL/L (21.0-31.0); ALLENS TEST YES-POS
[2022-01-30 03:40] LABS: INSPIRED O2 60%; VENTILATOR YES
[2022-01-30 03:41] LABS: ABG PH 7.26 (7.37-7.43); PATIENT TEMP 36.4
[2022-01-30] MEDS: POTASSIUM CL 10MEQ/50ML IVPB 50 ML IV SCH (04:59)
[2022-01-30] MEDS: KCL 20 MEQ TAB (K-DUR) PO SCH (04:59)
[2022-01-30] MEDS: MAGNESIUM 1 GM/100 ML IVPB 100 ML IV SCH (04:59)
[2022-01-30] MEDS: inSUlin ASPART (NovoLOG) 1 UNIT/0.01 ML (CHARGE PER UNIT) SC SCH ×2 (05:00→13:23)
--- NOTE | 2022-01-30 06:44 | Occ Therapy Progress Note ---
Therapy Progress Note Pt currently intubated. OT to monitor pt's status then will initiate treatment when pt is medically stable and able to actively participate in skilled therapy. BRODIE MCNAMARA Jan 30, 2022 06:44
[2022-01-30 07:01] VITALS: BP 139/52
--- NOTE | 2022-01-30 07:36 | Physical Therapy Progress Note ---
Therapy Progress Note Patient is currently sedated and intubated. PT will monitor patient status and initiate treatment when patient is medically stable and able to actively participate with skilled therapy. ALEXI HORN PT Jan 30, 2022 07:36
--- NOTE | 2022-01-30 07:55 | Tele-ICU Progress Note ---
Subjective Date Seen by a Provider: Jan 30, 2022 Time Seen by a Provider: 07:50 Subjective/Events-last exam Remains on full vent support, AC 20, FIO2 40%, Vt 450, PEEP 5, Drops SpO2 when right side is down Day 2 IV Cefepime, I reviewed CXR looks a little worse, bilateral infiltrates, bilateral effusions, R > L, increased heart size, has more leg edema today ABG also a little worse 7.26/45/71 Cr up from 2.45, now 2.61, renal svc should see pt pt full code Suction needs are not that bad Sepsis Event Evaluation Height, Weight, BMI Height: 5'10.00" Weight: 175lbs. 0.0oz. [id number]; 25.14 BMI Method: Exam Exam Patient acknowledged, consented, and participated in this virtual visit which was conducted using real time audio/video Vital Signs Date Time Temp Pulse Resp B/P (MAP) Pulse Ox O2 Delivery O2 Flow Rate FiO2 01/30/22 07:43 87 Mechanical Ventilator 65.00 01/30/22 07:37 36.1 01/30/22 07:01 85 20 95 50 01/30/22 06:53 Mechanical Ventilator 50.00 01/30/22 06:00 80 36 132/69 (90) 98 Mechanical Ventilator 60.00 01/30/22 05:00 79 20 128/65 (86) 97 Mechanical Ventilator 60.00 01/30/22 04:00 60 01/30/22 04:00 83 19 116/60 (78) 96 Mechanical Ventilator 60.00 01/30/22 03:34 36.4 88 15 101/52 (68) 96 Mechanical Ventilator 60.00 01/30/22 03:30 94 Mechanical Ventilator 60 01/30/22 03:00 87 23 108/54 (72) 96 Mechanical Ventilator 60.00 01/30/22 02:58 89 109/55 01/30/22 02:58 89 109/55 01/30/22 02:26 85 117/59 01/30/22 02:00 85 20 117/59 (78) 97 Mechanical Ventilator 60.00 01/30/22 02:00 97 60.00 01/30/22 01:52 85 20 97 60 01/30/22 01:03 100 01/30/22 01:00 97 16 108/54 (72) 93 Mechanical Ventilator 70.00 01/30/22 00:00 90 23 113/59 (77) 97 Mechanical Ventilator 70.00 01/30/22 00:00 70 01/29/22 23:44 98 Mechanical Ventilator 70 01/29/22 23:38 Mechanical Ventilator 70.00 01/29/22 23:38 36.3 89 20 99/51 (67) 96 Mechanical Ventilator 70.00 01/29/22 23:12 Mechanical Ventilator 50.00 01/29/22 23:00 83 20 92/49 (63) 88 Mechanical Ventilator 60.00 01/29/22 22:58 89 100/49 01/29/22 22:57 84 100/49 01/29/22 22:26 90 102/52 01/29/22 22:00 99 13 102/52 (69) 91 Mechanical Ventilator 60.00 01/29/22 21:38 Mechanical Ventilator 60.00 01/29/22 21:26 81 20 93 60 01/29/22 21:24 82 105/72 01/29/22 21:00 80 15 113/57 (75) 98 Mechanical Ventilator 75.00 01/29/22 20:12 75 01/29/22 20:11 84 101/50 01/29/22 20:00 36.6 84 19 101/50 (67) 96 Mechanical Ventilator 75.00 01/29/22 20:00 91 22 101/50 (67) 95 Mechanical Ventilator 75.00 01/29/22 19:59 97 Mechanical Ventilator 75 01/29/22 19:42 86 01/29/22 19:15 86 20 88 Mechanical Ventilator 75.00 01/29/22 19:05 Mechanical Ventilator 75.00 01/29/22 19:00 86 19 89 Mechanical Ventilator 65.00 01/29/22 18:06 84 20 95 65 01/29/22 18:00 85 18 97 Mechanical Ventilator 65.00 01/29/22 17:00 36.4 85 24 97 Mechanical Ventilator 65.00 01/29/22 16:15 65 01/29/22 16:11 92 110/40 01/29/22 16:00 90 19 103/46 (65) 94 Mechanical Ventilator 65.00 01/29/22 16:00 94 Mechanical Ventilator 40 01/29/22 15:40 Mechanical Ventilator 65.00 01/29/22 15:15 89 20 94 55 01/29/22 15:00 90 20 94/43 (60) 95 Mechanical Ventilator 40.00 01/29/22 14:00 90 15 104/46 (65) 95 Mechanical Ventilator 40.00 01/29/22 13:00 92 01/29/22 13:00 92 20 98/48 (65) 89 Mechanical Ventilator 40.00 01/29/22 12:15 55 01/29/22 12:00 86 20 82/40 (54) 92 Mechanical Ventilator 40.00 01/29/22 12:00 94 Mechanical Ventilator 40 01/29/22 11:55 36.6 01/29/22 11:40 90 90/44 01/29/22 11:00 88 20 90/44 (59) 93 Mechanical Ventilator 40.00 01/29/22 10:23 89 20 93 40 01/29/22 10:00 89 20 108/52 (70) 93 Mechanical Ventilator 40.00 01/29/22 09:00 91 20 97/47 (64) 91 Mechanical Ventilator 40.00 01/29/22 08:25 94 94/45 01/29/22 08:15 40 01/29/22 08:00 96 20 89/45 (60) 92 Mechanical Ventilator 40.00 01/29/22 08:00 94 Mechanical Ventilator 40 01/29/22 07:52 36.8 I & O 01/30/22 07:00 Intake Total 3363 ml Output Total 1680 ml Balance 1683 ml Height & Weight Height: 5'10.00" Weight: 175lbs. 0.0oz. [id number]; 25.14 BMI Method: General Appearance: No Apparent Distress, Chronically ill, Mild Distress, Other (sedated and intubated) Respiratory: No No Accessory Muscle Use, No No Respiratory Distress; Decreased Breath Sounds, Rhonci Cardiovascular: Regular Rate, Rhythm, No Gallop, No Murmur Capillary Refill: Less Than 3 Seconds Peripheral Pulses: 2+ Dorsalis Pedis (R), 2+ Left Dors-Pedis (L), 2+ Radial Pulses (R), 2+ Radial Pulses (L) Gastrointestinal: normal bowel sounds, non tender, soft, no organomegaly, other (ljiquid stools, no blood) Extremity: Pedal Edema (+3 leg edema), Other (Has 350 mL resdiuals have limited tub feeds to 20 mL/h) Skin: Normal Color, Warm/Dry Results Lab Laboratory Tests 01/29/22 04:25 01/30/22 03:08 Assessment/Plan Assessment/Plan Lung Ca, bladder Ca CHF, PNA will continue on vent, not a candidate for SBT continue abx, Monitor Cr at some point might need HD, family ok with that Critical Care: Ventilator Management Time spent with patient (mins): 35 OMID THURMAN MD Jan 30, 2022 07:55
--- NOTE | 2022-01-30 08:31 | Cardiology Progress Note ---
Subjective Date Seen by Provider: Jan 30, 2022 Time Seen by Provider: 08:31 Subjective/Events-last exam Patient is sedated and intubated Objective-Cardiology Exam Last Set of Vital Signs Vital Signs 01/30/22 01/30/22 01/30/22 01/30/22 06:00 07:01 07:37 08:15 Temp 36.1 Pulse 85 Resp 20 B/P (MAP) 132/69 (90) FiO2 65 I&O Intake and Output 01/29/22 23:59 Intake Total 2688 ml Output Total 1400 ml Balance 1288 ml IV Total 2150 ml Tube Feeding 358 ml Other 180 ml Output Urine Total 1050 ml Gastric Drainage Total 350 ml General: Other (sedated and ventillated ) HEENT: Atraumatic Neck: No LAD Lungs: Other (decreased breath sounds ) Heart: Regular Rate, Normal S1, Normal S2 Abdomen: Normal Bowel Sounds, Soft Extremities: No Edema, Normal Pulses Skin: No Rashes, No Significant Lesion Neuro: Other (pt sedated and on vent) Psych/Mental Status: Other (Sedated and intubated) Results Lab Laboratory Tests 01/30/22 03:08 A/P-Cardiology Admission Diagnosis Acute respiratory failure Acute exacerbation of COPD Lung cancer Bladder cancer Acute renal insufficiency Assessment/Plan Acute respiratory failure, history of chronic respiratory insufficiency Rapid deterioration resulted in intubation. Managed by medical team History of small cell lung cancer, was treated at and had a recent lung biopsy. Bladder cancer, newly diagnosed, Tobaccoism, patient has been active smoker until 2018. Severe COPD, patient was maintained on 6 L oxygen at home. Managed by medical team Hypertension, monitor blood pressure Chronic kidney disease. Baseline creatinine around 2.4, continue to monitor renal function Diabetes mellitus, followed and managed by primary care physician Generalized weakness and debility Weight loss. Overall poor prognosis LASHAY LIRA MD Jan 30, 2022 08:31
[2022-01-30] MEDS: PANTOPRAZOLE 40 MG (PROTONIX) VIAL IV SCH (08:37)
[2022-01-30] MEDS: fentaNYL DRIP PRE-MIX 250 ML IV SCH ×2 (08:38→16:43)
--- NOTE | 2022-01-30 08:41 | Diagnostic Imaging Report ---
INDICATION: Pneumonia. TIME OF EXAM: 5:33 AM Correlation is made with prior chest 1 day earlier. FINDINGS: ET tube, NG tube and right-sided IJ line remain in place. Bibasilar infiltrates persist. There is central congestion. No pneumothorax is seen. Recent small bilateral effusions. IMPRESSION: No significant change in bibasilar infiltrates and effusions when compared with examination one day earlier. Dictated by: Dictated on workstation # [id number]
[2022-01-30 10:45] VITALS: BP 136/48
--- NOTE | 2022-01-30 12:53 | Progress Note ---
HIRO DAVISON 01/30/22 1253: Subjective Date Seen by a Provider: Jan 30, 2022 Time Seen by a Provider: 10:40 Subjective/Events-last exam Pt still ventilated, 450/20/5/65 He had difficulty with tube feedings yesterday. Adjusted feeds to 20ml/hr. According to nurse he was not tolerating ET tube well, precedex was given over night. ABG 7.26/45/71 with worsening renal function Family still requesting full code Hospital Course: Mr. Galeano, 77 YO male, was admitted on 01/25/22 from [facility] for higher level of care secondary to respiratory failure requiring intubation. Pt is a previous long-term smoker with severe COPD requiring baseline 6L O2, small cell lung carcinoma, newly dx bladder carcinoma, and CKD with baseline creatinine of 2.5. His lung and bladder cancer are both managed at . Since hospitalization he has continued pulmonary infiltrates with right and left effusions on CXR, requiring IV cefepime. His kidney function continues to decline, with worsening metabolic acidosis. Family has requested to keep him a full code, despite several conversations regarding hospice/palliative care as they state "he's been intubated for 4 days before and came out of it." Tele-ICU and cardiology consulted throughout stay. He has remained sedated and ventilated with poor prognosis. We have considered transfer to higher level of care for dialysis and more permanent treatment (trach, etc) which family are requesting. Objective Exam Last Set of Vital Signs Vital Signs Date Time Temp Pulse Resp B/P (MAP) Pulse Ox O2 Delivery O2 Flow Rate FiO2 01/30/22 12:00 81 20 121/62 (81) 95 Mechanical Ventilator 50.00 01/30/22 11:52 36.0 01/30/22 10:45 50 Capillary Refill : Less Than 3 Seconds I&O l Intake and Output 01/30/22 00:00 Intake Total 2688 ml Output Total 1400 ml Balance 1288 ml IV Total 2150 ml Tube Feeding 358 ml Other 180 ml Output Urine Total 1050 ml Gastric Drainage Total 350 ml General: Mild Distress, Other (pt is sedated and ventilated ) HEENT: Atraumatic Neck: No JVD Lungs: Other (Decreased breath sounds with rhonchi ) Heart: Regular Rate, Normal S1, Normal S2 Abdomen: Normal Bowel Sounds, Soft Extremities: No Clubbing, No Cyanosis, Other (pedal edema and increasing edema in hands, R>L) Skin: No Rashes Neuro: Other (sedated and ventilated) Results Lab Laboratory Tests 01/29/22 18:38: Glucometer 167H 01/29/22 23:28: Glucometer 159H 01/30/22 03:08: White Blood Count 6.7, Red Blood Count 3.03L, Hemoglobin 9.4L, Hematocrit 29L, Mean Corpuscular Volume 97, Mean Corpuscular Hemoglobin 31, Mean Corpuscular Hemoglobin Concent 32, Red Cell Distribution Width 14.3, Platelet Count 194, Mean Platelet Volume 10.3, Immature Granulocyte % (Auto) 1, Neutrophils (%) (Auto) 80H, Lymphocytes (%) (Auto) 8L, Monocytes (%) (Auto) 9, Eosinophils (%) (Auto) 2, Basophils (%) (Auto) 0, Neutrophils # (Auto) 5.4, Lymphocytes # (Auto) 0.5L, Monocytes # (Auto) 0.6, Eosinophils # (Auto) 0.1, Basophils # (Auto) 0.0, Immature Granulocyte # (Auto) 0.1, Sodium Level 143, Potassium Level 3.6, Chloride Level 111H, Carbon Dioxide Level 16L, Anion Gap 16H, Blood Urea Nitrogen 59H, Creatinine 2.61H, Estimat Glomerular Filtration Rate 25, BUN/Creatinine Ratio 23, Glucose Level 158H, Calcium Level 7.4L, Corrected Calcium 8.4L, Phosphorus Level 5.9H, Magnesium Level 2.0, Total Bilirubin 0.2, Aspartate Amino Transf (AST/SGOT) 32, Alanine Aminotransferase (ALT/SGPT) 15, Alkaline Phosphatase 72, Total Protein 5.4L, Albumin 2.7L 01/30/22 03:09: Blood Gas Puncture Site RRAD, Blood Gas Patient Temperature 36.4, Arterial Blood pH 7.26*L, Arterial Blood Partial Pressure CO2 45, Arterial Blood Partial Pressure O2 71L, Arterial Blood HCO3 19L, Arterial Blood Total CO2 20.7L, Arterial Blood Oxygen Saturation 94, Arterial Blood Base Excess -6.5L, Tuan Test YES-POS, Blood Gas Ventilator Setting YES, Blood Gas Inspired Oxygen 60% Microbiology 01/25/22 Gram Stain - Final, Complete 01/25/22 Sputum Culture - Final, Complete Usual upper respiratory jacqueline 01/25/22 Blood Culture - Preliminary, Resulted No growth Assessment/Plan Assessment/Plan Assess & Plan/Chief Complaint Assessment: Respiratory failure Metabolic acidosis Worsening renal function Lung and bladder cancer Severe COPD requiring 6L/min of O2 at home HTN DM insulin dependent Volume overload with elevated BNP at [place] - CXR today shows no significant change since yesterday, with continued infiltrates and effusions. Plan: ICU - day 6 of intubation. Continue ventilator management Supportive care with close monitoring Poor prognosis Family requesting full code and would like to pursue dialysis. Consider transfer of care to or [place] for dialysis and more permanent treatment. LIZBETH WEST DO 01/30/226: Supervisory-Addendum Brief Verification & Attestation Participated in pt care: history, MDM, physical Personally performed: exam, history, MDM, supervision of care Care discussed with: Medical Student Procedures: n/a Results interpretation: Verified all documentation Verification and Attestation of Medical Student E/M Service A medical student performed and documented this service in my presence. I reviewed and verified all information documented by the medical student and made modifications to such information, when appropriate. I personally performed the physical exam and medical decision making. Lizbeth West, Jan 30, 2022,21:06 HIRO DAVISON Jan 30, 2022 12:53 LIZBETH WEST DO Jan 30, 2022 21:06
[2022-01-30] MEDS: CEFEPIME INJECTION 1,000 MG in NS (IVPB) 50 ML IV SCH (13:21)
[2022-01-30 14:50] VITALS: BP 135/54
[2022-01-30] MEDS: PROPOFOL DRIP (ICU) 100 ML IV SCH (16:45)
--- NOTE | 2022-01-30 20:50 | Discharge Summary ---
Diagnosis/Chief Complaint Date of Admission Jan 25, 2022 at 22:07 Date of Discharge Jan 30, 2022 at 16:55 Discharge Diagnosis Assessment: Respiratory failure Metabolic acidosis Worsening renal function Lung and bladder cancer Severe COPD requiring 6L/min of O2 at home HTN DM insulin dependent Volume overload with elevated BNP at [facility] [place] - CXR today shows no significant change since yesterday, with continued infiltrates and effusions. Plan: ICU - day 6 of intubation. Continue ventilator management Supportive care with close monitoring Poor prognosis Family requesting full code and would like to pursue dialysis. Consider transfer of care to or [place] for dialysis and more permanent treatment. Discharge Summary Discharge Physical Examination Allergies: Coded Allergies: enalapril (Verified Adverse Reaction, Intermediate, COUGH, 09/07/14) Vitals & I&Os Vital Signs Date Time Temp Pulse Resp B/P (MAP) Pulse Ox O2 Delivery O2 Flow Rate FiO2 01/30/22 16:45 81 19 99 Mechanical Ventilator 50.00 01/30/22 16:30 65 01/30/22 15:59 36.3 General Appearance: Other (sedated on vent) Cardiovascular: Regular Rate Hospital Course Was the Problem List Reviewed?: Yes Hospital Course: Mr. Galeano, 77 YO male, was admitted on 01/25/22 from [facility] for higher level of care secondary to respiratory failure requiring intubation. Pt is a previous long-term smoker with severe COPD requiring baseline 6L O2, small cell lung carcinoma, newly dx bladder carcinoma, and CKD with baseline creatinine of 2.5. His lung and bladder cancer are both managed at . Since hospitalization he has continued pulmonary infiltrates with right and left effusions on CXR, requiring IV cefepime. His kidney function continues to decline, with worsening metabolic acidosis. Family has requested to keep him a full code, despite several conversations regarding hospice/palliative care as they state "he's been intubated for 4 days before and came out of it." Tele-ICU and cardiology consulted throughout stay. He has remained sedated and ventilated with poor prognosis. We have considered transfer to higher level of care for dialysis and more permanent treatment (trach, etc) which family are requesting. Labs (last 24 hrs) Laboratory Tests 01/25/22 22:07: Lab Scanned Report Referred Lab Report 01/25/22 22:49: White Blood Count 7.9, Red Blood Count 3.54L, Hemoglobin 10.9L, Hematocrit 35L, Mean Corpuscular Volume 98, Mean Corpuscular Hemoglobin 31, Mean Corpuscular Hemoglobin Concent 31L, Red Cell Distribution Width 13.0, Platelet Count 108L, Mean Platelet Volume 11.0, Immature Granulocyte % (Auto) 1, Neutrophils (%) (Auto) 85H, Lymphocytes (%) (Auto) 6L, Monocytes (%) (Auto) 8, Eosinophils (%) (Auto) 0, Basophils (%) (Auto) 0, Neutrophils # (Auto) 6.7, Lymphocytes # (Auto) 0.4L, Monocytes # (Auto) 0.6, Eosinophils # (Auto) 0.0, Basophils # (Auto) 0.0, Immature Granulocyte # (Auto) 0.1, Neutrophils % (Manual) 86, Lymphocytes % (Manual) 6, Monocytes % (Manual) 6, Eosinophils % (Manual) 1, Myelocytes % 1, Percent Immature Platelet Fraction 5.2, Elliptocytes SLIGHT, Sodium Level 140, Potassium Level 5.0, Chloride Level 102, Carbon Dioxide Level 25, Anion Gap 13, Blood Urea Nitrogen 40H, Creatinine 2.20H, Estimat Glomerular Filtration Rate 30, BUN/Creatinine Ratio 18, Glucose Level 299H, Lactic Acid Level 1.63, Calcium Level 8.7, Corrected Calcium 9.3, Total Bilirubin 0.7, Aspartate Amino Transf (AST/SGOT) 14, Alanine Aminotransferase (ALT/SGPT) 15, Alkaline Phosphatase 105, Total Protein 6.1L, Albumin 3.3, Triglycerides Level 177H, Procalcitonin 0.06 01/25/22 22:53: B-Type Natriuretic Peptide 387.7H 01/25/22 23:17: Blood Gas Puncture Site RIGHT ARTLINE, Blood Gas Patient Temperature 36.3, Arterial Blood pH 7.35L, Arterial Blood Partial Pressure CO2 50H, Arterial Blood Partial Pressure O2 49L, Arterial Blood HCO3 27, Arterial Blood Total CO2 28.5, Arterial Blood Oxygen Saturation 91L, Arterial Blood Base Excess 1.7, Tuan Test ART LINE, Blood Gas Ventilator Setting YES, Blood Gas Inspired Oxygen 100% 01/26/22 04:10: White Blood Count 8.2, Red Blood Count 3.13L, Hemoglobin 9.8L, Hematocrit 30L, Mean Corpuscular Volume 97, Mean Corpuscular Hemoglobin 31, Mean Corpuscular Hemoglobin Concent 32, Red Cell Distribution Width 13.2, Platelet Count 110L, Mean Platelet Volume 10.7, Immature Granulocyte % (Auto) 1, Neutrophils (%) (Auto) 80H, Lymphocytes (%) (Auto) 8L, Monocytes (%) (Auto) 11, Eosinophils (%) (Auto) 0, Basophils (%) (Auto) 0, Neutrophils # (Auto) 6.5, Lymphocytes # (Auto) 0.7L, Monocytes # (Auto) 0.9, Eosinophils # (Auto) 0.0, Basophils # (Auto) 0.0, Immature Granulocyte # (Auto) 0.1, Blood Gas Puncture Site R RAD ARTLINE, Blood Gas Patient Temperature 36.7, Arterial Blood pH 7.36L, Arterial Blood Partial Pressure CO2 54H, Arterial Blood Partial Pressure O2 58L, Arterial Blood HCO3 30H, Arterial Blood Total CO2 31.1H, Arterial Blood Oxygen Saturation 93L, Arterial Blood Base Excess 4.3H, Tuan Test ART LINE, Blood Gas Ventilator Setting YES, Blood Gas Inspired Oxygen 60%, Sodium Level 142, Potassium Level 4.2, Chloride Level 106, Carbon Dioxide Level 26, Anion Gap 10, Blood Urea Nitr ogen 43H, Creatinine 2.31H, Estimat Glomerular Filtration Rate 29, BUN/Creatinine Ratio 19, Glucose Level 212H, Calcium Level 8.3L, Corrected Calcium 9.2, Phosphorus Level 3.3, Magnesium Level 1.9, Total Bilirubin 0.4, Aspartate Amino Transf (AST/SGOT) 11, Alanine Aminotransferase (ALT/SGPT) 12, Alkaline Phosphatase 89, Total Protein 5.3L, Albumin 2.9L 01/26/22 12:06: Glucometer 146H 01/26/22 17:16: Glucometer 180H 01/26/22 20:43: Glucometer 164H 01/26/22 23:44: Glucometer 161H 01/27/22 03:22: White Blood Count 10.2, Red Blood Count 3.10L, Hemoglobin 9.6L, Hematocrit 30L, Mean Corpuscular Volume 97, Mean Corpuscular Hemoglobin 31, Mean Corpuscular Hemoglobin Concent 32, Red Cell Distribution Width 13.7, Platelet Count 134, Mean Platelet Volume 10.7, Immature Granulocyte % (Auto) 1, Neutrophils (%) (Auto) 82H, Lymphocytes (%) (Auto) 6L, Monocytes (%) (Auto) 11, Eosinophils (%) (Auto) 1, Basophils (%) (Auto) 0, Neutrophils # (Auto) 8.3H, Lymphocytes # (Auto) 0.7L, Monocytes # (Auto) 1.1H, Eosinophils # (Auto) 0.1, Basophils # (Auto) 0.0, Immature Granulocyte # (Auto) 0.1, Blood Gas Puncture Site RIGHT ARTLINE, Blood Gas Patient Temperature 37, Arterial Blood pH 7.35L, Arterial Blood Partial Pressure CO2 53H, Arterial Blood Partial Pressure O2 70L, Arterial Blood HCO3 29H, Arterial Blood Total CO2 30.2, Arterial Blood Oxygen Saturation 95, Arterial Blood Base Excess 3.4H, Tuan Test ART LINE, Blood Gas Ventilator Setting YES, Blood Gas Inspired Oxygen 60%, Sodium Level 141, Potassium Level 3.9, Chloride Level 107, Carbon Dioxide Level 25, Anion Gap 9, Blood Urea Nitrogen 41H, Creatinine 2.35H, Estimat Glomerular Filtration Rate 28, BUN/Creatinine Ratio 17, Glucose Level 181H, Calcium Level 7.9L, Corrected Calcium 8.9, Phosphorus Level 2.8, Magnesium Level 1.8, Total Bilirubin 0.4, Aspartate Amino Transf (AST/SGOT) 10, Alanine Aminotransferase (ALT/SGPT) 10, Alkaline Phosphatase 86, Total Protein 5.1L, Albumin 2.7L 01/27/22 05:58: Glucometer 155H 01/27/22 11:54: Glucometer 152H 01/27/22 18:02: Glucometer 125H 01/27/22 23:50: Glucometer 114H 01/28/22 04:35: White Blood Count 7.5, Red Blood Count 3.13L, Hemoglobin 9.7L, Hematocrit 30L, Mean Corpuscular Volume 96, Mean Corpuscular Hemoglobin 31, Mean Corpuscular He moglobin Concent 32, Red Cell Distribution Width 14.0, Platelet Count 142, Mean Platelet Volume 10.4, Immature Granulocyte % (Auto) 1, Neutrophils (%) (Auto) 78H, Lymphocytes (%) (Auto) 8L, Monocytes (%) (Auto) 10, Eosinophils (%) (Auto) 4, Basophils (%) (Auto) 0, Neutrophils # (Auto) 5.8, Lymphocytes # (Auto) 0.6L, Monocytes # (Auto) 0.8, Eosinophils # (Auto) 0.3, Basophils # (Auto) 0.0, Immature Granulocyte # (Auto) 0.0, Blood Gas Puncture Site ARTLINE, Blood Gas Patient Temperature 36.3, Arterial Blood pH 7.35L, Arterial Blood Partial P ressure CO2 46H, Arterial Blood Partial Pressure O2 79, Arterial Blood HCO3 26, Arterial Blood Total CO2 27.0, Arterial Blood Oxygen Saturation 97, Arterial Blood Base Excess 0.5, Tuan Test ART LINE, Blood Gas Ventilator Setting YES, Blood Gas Inspired Oxygen 65%, Sodium Level 145, Potassium Level 3.9, Chloride Level 111H, Carbon Dioxide Level 22, Anion Gap 12, Blood Urea Nitrogen 39H, Creatinine 2.18H, Estimat Glomerular Filtration Rate 31, BUN/Creatinine Ratio 18, Glucose Level 113H, Calcium Level 7.9L, Corrected Calcium 9.2, Phosphorus Level 3.2, Magnesium Level 1.8, Total Bilirubin 0.4, Aspartate Amino Transf (AST/SGOT) 10, Alanine Aminotransferase (ALT/SGPT) 11, Alkaline Phosphatase 73, Total Protein 5.0L, Albumin 2.4L, Triglycerides Level 137 01/28/22 11:29: Glucometer 110 01/28/22 18:21: Glucometer 163H 01/28/22 23:31: Glucometer 163H 01/29/22 04:25: White Blood Count 7.1, Red Blood Count 3.15L, Hemoglobin 9.6L, Hematocrit 31L, Mean Corpuscular Volume 98, Mean Corpuscular Hemoglobin 31, Mean Corpuscular Hemoglobin Concent 31L, Red Cell Distribution Width 14.1, Platelet Count 166, Mean Platelet Volume 11.1, Immature Granulocyte % (Auto) 1, Neutrophils (%) (Auto) 91H, Lymphocytes (%) (Auto) 5L, Monocytes (%) (Auto) 4, Eosinophils (%) (Auto) 0, Basophils (%) (Auto) 0, Neutrophils # (Auto) 6.5, Lymphocytes # (Auto) 0.3L, Monocytes # (Auto) 0.3, Eosinophils # (Auto) 0.0, Basophils # (Auto) 0.0, Immature Granulocyte # (Auto) 0.1, Sodium Level 144, Potassium Level 4.9, Chloride Level 109H, Carbon Dioxide Level 13L, Anion Gap 22H, Blood Urea Nitrogen 55H, Creatinine 2.45H, Estimat Glomerular Filtration Rate 27, BUN/Creatinine Ratio 22, Glucose Level 223H, Calcium Level 7.7L, Corrected Calcium 8.9, Phosphorus Level 7.2H, Magnesium Level 2.0, Total Bilirubin 0.3, A spartate Amino Transf (AST/SGOT) 11, Alanine Aminotransferase (ALT/SGPT) 11, Alkaline Phosphatase 73, Total Protein 5.3L, Albumin 2.5L, Triglycerides Level 144 01/29/22 04:30: Blood Gas Puncture Site HAN, Blood Gas Patient Temperature 36.3, Arterial Blood pH 7.29*L, Arterial Blood Partial Pressure CO2 35, Arterial Blood Partial Pressure O2 67L, Arterial Blood HCO3 17*L, Arterial Blood Total CO2 17.7L, Arterial Blood Oxygen Saturation 92L, Arterial Blood Base Excess -8.9L, Tuan Test YES-POS, Blood Gas Ventilator Setting YES, Blood Gas Inspired Oxygen 45% 01/29/22 11:31: Glucometer 163H 01/29/22 18:38: Glucometer 167H 01/29/22 23:28: Glucometer 159H 01/30/22 03:08: White Blood Count 6.7, Red Blood Count 3.03L, Hemoglobin 9.4L, Hematocrit 29L, Mean Corpuscular Volume 97, Mean Corpuscular Hemoglobin 31, Mean Corpuscular Hemoglobin Concent 32, Red Cell Distribution Width 14.3, Platelet Count 194, Mean Platelet Volume 10.3, Immature Granulocyte % (Auto) 1, Neutrophils (%) (Auto) 80H, Lymphocytes (%) (Auto) 8L, Monocytes (%) (Auto) 9, Eosinophils (%) (Auto) 2, Basophils (%) (Auto) 0, Neutrophils # (Auto) 5.4, Lymphocytes # (Auto) 0.5L, Monocytes # (Auto) 0.6, Eosinophils # (Auto) 0.1, Basophils # (Auto) 0.0, Immature Granulocyte # (Auto) 0.1, Sodium Level 143, Potassium Level 3.6, Chloride Level 111H, Carbon Dioxide Level 16L, Anion Gap 16H, Blood Urea Nitrogen 59H, Creatinine 2.61H, Estimat Glomerular Filtration Rate 25, BUN/Creatinine Ratio 23, Glucose Level 158H, Calcium Level 7.4L, Corrected Calcium 8.4L, Phosphorus Level 5.9H, Magnesium Level 2.0, Total Bilirubin 0.2, Aspartate Amino Transf (AST/SGOT) 32, Alanine Aminotransferase (ALT/SGPT) 15, Alkaline Phosphatase 72, Total Protein 5.4L, Albumin 2.7L 01/30/22 03:09: Blood Gas Puncture Site RRAD, Blood Gas Patient Temperature 36.4, Arterial Blood pH 7.26*L, Arterial Blood Partial Pressure CO2 45, Arterial Blood Partial Pressure O2 71L, Arterial Blood HCO3 19L, Arterial Blood Total CO2 20.7L, Arterial Blood Oxygen Saturation 94, Arterial Blood Base Excess -6.5L, Tuan Test YES-POS, Blood Gas Ventilator Setting YES, Blood Gas Inspired Oxygen 60% Microbiology 01/25/22 Gram Stain - Final, Complete 01/25/22 Sputum Culture - Final, Complete Usual upper respiratory jacqueline 01/25/22 Blood Culture - Preliminary, Resulted No growth Pending Labs Microbiology Date/Time Source Procedure Growth Status 01/25/22 23:40 Sputum Endotracheal Gram Stain - Final Complete 01/25/22 23:40 Sputum Culture - Final Usual upper respiratory jacqueline Complete 01/25/22 22:54 Nasal MRSA Screen - Final No growth Complete 01/25/22 22:53 Peripheral Arm, Right Blood Culture - Preliminary No growth Resulted 01/25/22 22:49 Peripheral Lt Ac Blood Culture - Preliminary No growth Resulted Laboratory Tests 01/25/22 22:07: Lab Scanned Report Referred Lab Report 01/25/22 22:49: White Blood Count 7.9, Red Blood Count 3.54, Hemoglobin 10.9, Hematocrit 35, Mean Corpuscular Volume 98, Mean Corpuscular Hemoglobin 31, Mean Corpuscular Hemoglobin Concent 31, Red Cell Distribution Width 13.0, Platelet Count 108, Mean Platelet Volume 11.0, Immature Granulocyte % (Auto) 1, Neutrophils (%) (Auto) 85, Lymphocytes (%) (Auto) 6, Monocytes (%) (Auto) 8, Eosinophils (%) (Auto) 0, Basophils (%) (Auto) 0, Neutrophils # (Auto) 6.7, Lymphocytes # (Auto) 0.4, Monocytes # (Auto) 0.6, Eosinophils # (Auto) 0.0, Basophils # (Auto) 0.0, Immature Granulocyte # (Auto) 0.1, Neutrophils % (Manual) 86, Lymphocytes % (Manual) 6, Monocytes % (Manual) 6, Eosinophils % (Manual) 1, Myelocytes % 1, Percent Immature Platelet Fraction 5.2, Elliptocytes SLIGHT, Sodium Level 140, Potassium Level 5.0, Chloride Level 102, Carbon Dioxide Level 25, Anion Gap 13, Blood Urea Nitrogen 40, Creatinine 2.20, Estimat Glomerular Filtration Rate 30, BUN/Creatinine Ratio 18, Glucose Level 299, Lactic Acid Level 1.63, Calcium Level 8.7, Corrected Calcium 9.3, Total Bilirubin 0.7, Aspartate Amino Transf (AST/SGOT) 14, Alanine Aminotransferase (ALT/SGPT) 15, Alkaline Phosphatase 105, Total Protein 6.1, Albumin 3.3, Triglycerides Level 177, Procalcitonin 0.06 01/25/22 22:53: B-Type Natriuretic Peptide 387.7 01/25/22 23:17: Blood Gas Puncture Site RIGHT ARTLINE, Blood Gas Patient Temperature 36.3, Arterial Blood pH 7.35, Arterial Blood Partial Pressure CO2 50, Arterial Blood Partial Pressure O2 49, Arterial Blood HCO3 27, Arterial Blood Total CO2 28.5, Arterial Blood Oxygen Saturation 91, Arterial Blood Base Excess 1.7, Tuan Test ART LINE, Blood Gas Ventilator Setting YES, Blood Gas Inspired Oxygen 100% 01/26/22 04:10: White Blood Count 8.2, Red Blood Count 3.13, Hemoglobin 9.8, Hematocrit 30, Mean Corpuscular Volume 97, Mean Corpuscular Hemoglobin 31, Mean Corpuscular Hemoglobin Concent 32, Red Cell Distribution Width 13.2, Platelet Count 110, Mean Platelet Volume 10.7, Immature Granulocyte % (Auto) 1, Neutrophils (%) (Auto) 80, Lymphocytes (%) (Auto) 8, Monocytes (%) (Auto) 11, Eosinophils (%) (Auto) 0, Basophils (%) (Auto) 0, Neutrophils # (Auto) 6.5, Lymphocytes # (Auto) 0.7, Monocytes # (Auto) 0.9, Eosinophils # (Auto) 0.0, Basophils # (Auto) 0.0, Immature Granulocyte # (Auto) 0.1, Blood Gas Puncture Site R RAD ARTLINE, Blood Gas Patient Temperature 36.7, Arterial Blood pH 7.36, Arterial Blood Partial Pressure CO2 54, Arterial Blood Partial Pressure O2 58, Arterial Blood HCO3 30, Arterial Blood Total CO2 31.1, Arterial Blood Oxygen Saturation 93, Arterial Blood Base Excess 4.3, Tuan Test ART LINE, Blood Gas Ventilator Setting YES, Blood Gas Inspired Oxygen 60%, Sodium Level 142, Potassium Level 4.2, Chloride Level 106, Carbon Dioxide Level 26, Anion Gap 10, Blood Urea Nitrogen 43, Creatinine 2.31, Estimat Glomerular Filtration Rate 29, BUN/Creatinine Ratio 19, Glucose Level 212, Calcium Level 8.3, Corrected Calcium 9.2, Phosphorus Level 3.3, Magnesium Level 1.9, Total Bilirubin 0.4, Aspartate Amino Transf (AST/SGOT) 11, Alanine Aminotransferase (ALT/SGPT) 12, Alkaline Phosphatase 89, Total Protein 5.3, Albumin 2.9 01/26/22 12:06: Glucometer 146 01/26/22 17:16: Glucometer 180 01/26/22 20:43: Glucometer 164 01/26/22 23:44: Glucometer 161 01/27/22 03:22: White Blood Count 10.2, Red Blood Count 3.10, Hemoglobin 9.6, Hematocrit 30, Mean Corpuscular Volume 97, Mean Corpuscular Hemoglobin 31, Mean Corpuscular Hemoglobin Concent 32, Red Cell Distribution Width 13.7, Platelet Count 134, Mean Platelet Volume 10.7, Immature Granulocyte % (Auto) 1, Neutrophils (%) (Auto) 82, Lymphocytes (%) (Auto) 6, Monocytes (%) (Auto) 11, Eosinophils (%) (Auto) 1, Basophils (%) (Auto) 0, Neutrophils # (Auto) 8.3, Lymphocytes # (Auto) 0.7, Monocytes # (Auto) 1.1, Eosinophils # (Auto) 0.1, Basophils # (Auto) 0.0, Immature Granulocyte # (Auto) 0.1, Blood Gas Puncture Site RIGHT ARTLINE, Blood Gas Patient Temperature 37, Arterial Blood pH 7.35, Arterial Blood Partial Pressure CO2 53, Arterial Blood Partial Pressure O2 70, Arterial Blood HCO3 29, Arterial Blood Total CO2 30.2, Arterial Blood Oxygen Saturation 95, Arterial Blood Base Excess 3.4, Tuan Test ART LINE, Blood Gas Ventilator Setting YES, Blood Gas Inspired Oxygen 60%, Sodium Level 141, Potassium Level 3.9, Chloride Level 107, Carbon Dioxide Level 25, Anion Gap 9, Blood Urea Nitrogen 41, Creatin ine 2.35, Estimat Glomerular Filtration Rate 28, BUN/Creatinine Ratio 17, Glucose Level 181, Calcium Level 7.9, Corrected Calcium 8.9, Phosphorus Level 2.8, Magnesium Level 1.8, Total Bilirubin 0.4, Aspartate Amino Transf (AST/SGOT) 10, Alanine Aminotransferase (ALT/SGPT) 10, Alkaline Phosphatase 86, Total Protein 5.1, Albumin 2.7 01/27/22 05:58: Glucometer 155 01/27/22 11:54: Glucometer 152 01/27/22 18:02: Glucometer 125 01/27/22 23:50: Glucometer 114 01/28/22 04:35: White Blood Count 7.5, Red Blood Count 3.13, Hemoglobin 9.7, Hematocrit 30, Mean Corpuscular Volume 96, Mean Corpuscular Hemoglobin 31, Mean Corpuscular Hemoglobin Concent 32, Red Cell Distribution Width 14.0, Platelet Count 142, Mean Platelet Volume 10.4, Immature Granulocyte % (Auto) 1, Neutrophils (%) (Auto) 78, Lymphocytes (%) (Auto) 8, Monocytes (%) (Auto) 10, Eosinophils (%) (Auto) 4, Basophils (%) (Auto) 0, Neutrophils # (Auto) 5.8, Lymphocytes # (Auto) 0.6, Monocytes # (Auto) 0.8, Eosinophils # (Auto) 0.3, Basophils # (Auto) 0.0, Immature Granulocyte # (Auto) 0.0, Blood Gas Puncture Site ARTLINE, Blood Gas Patient Temperature 36.3, Arterial Blood pH 7.35, Arterial Blood Partial Pressure CO2 46, Arterial Blood Partial Pressure O2 79, Arterial Blood HCO3 26, Arterial Blood Total CO2 27.0, Arterial Blood Oxygen Saturation 97, Arterial Blood Base Excess 0.5, Tuan Test ART LINE, Blood Gas Ventilator Setting YES, Blood Gas Inspired Oxygen 65%, Sodium Level 145, Potassium Level 3.9, Chloride Level 111, Carbon Dioxide Level 22, Anion Gap 12, Blood Urea Nitrogen 39, Creatinine 2.18, Estimat Glomerular Filtration Rate 31, BUN/Creatinine Ratio 18, Glucose Level 113, Calcium Level 7.9, Corrected Calcium 9.2, Phosphorus Level 3.2, Magnesium Level 1.8, Total Bilirubin 0.4, Aspartate Amino Transf (AST/SGOT) 10, Alanine Aminotransferase (ALT/SGPT) 11, Alkaline Phosphatase 73, Total Protein 5.0, Albumin 2.4, Triglycerides Level 137 01/28/22 11:29: Glucometer 110 01/28/22 18:21: Glucometer 163 01/28/22 23:31: Glucometer 163 01/29/22 04:25: White Blood Count 7.1, Red Blood Count 3.15, Hemoglobin 9.6, Hematocrit 31, Mean Corpuscular Volume 98, Mean Corpuscular Hemoglobin 31, Mean Corpuscular Hemoglobin Concent 31, Red Cell Distribution Width 14.1, Platelet Count 166, Mean Platelet Volume 11.1, Immature Granulocyte % (Auto) 1, Neutrophils (%) (Auto) 91, Lymphocytes (%) (Auto) 5, Monocytes (%) (Auto) 4, Eosinophils (%) (Auto) 0, Basophils (%) (Auto) 0, Neutrophils # (Auto) 6.5, Lymphocytes # (Auto) 0.3, Monocytes # (Auto) 0.3, Eosinophils # (Auto) 0.0, Basophils # (Auto) 0.0, Immature Granulocyte # (Auto) 0.1, Sodium Level 144, Potassium Level 4.9, Chloride Level 109, Carbon Dioxide Level 13, Anion Gap 22, Blood Urea Nitrogen 55, Creatinine 2.45, Estimat Glomerular Filtration Rate 27, BUN/Creatinine Ratio 22, Glucose Level 223, Calcium Level 7.7, Corrected Calcium 8.9, Phosphorus Level 7.2, Magnesium Level 2.0, Total Bilirubin 0.3, Aspartate Amino Transf (AST/SGOT) 11, Alanine Aminotransferase (ALT/SGPT) 11, Alkaline Phosphatase 73, Total Protein 5.3, Albumin 2.5, Triglycerides Level 144 01/29/22 04:30: Blood Gas Puncture Site HAN, Blood Gas Patient Temperature 36.3, Arterial Blood pH 7.29, Arterial Blood Partial Pressure CO2 35, Arterial Blood Partial Pressure O2 67, Arterial Blood HCO3 17, Arterial Blood Total CO2 17.7, Arterial Blood Oxygen Saturation 92, Arterial Blood Base Excess -8.9, Tuan Test YES-POS, Blood Gas Ventilator Setting YES, Blood Gas Inspired Oxygen 45% 01/29/22 11:31: Glucometer 163 01/29/22 18:38: Glucometer 167 01/29/22 23:28: Glucometer 159 01/30/22 03:08: White Blood Count 6.7, Red Blood Count 3.03, Hemoglobin 9.4, Hematocrit 29, Mean Corpuscular Volume 97, Mean Corpuscular Hemoglobin 31, Mean Corpuscular Hemoglobin Concent 32, Red Cell Distribution Width 14.3, Platelet Count 194, Mean Platelet Volume 10.3, Immature Granulocyte % (Auto) 1, Neutrophils (%) (Auto) 80, Lymphocytes (%) (Auto) 8, Monocytes (%) (Auto) 9, Eosinophils (%) (Auto) 2, Basophils (%) (Auto) 0, Neutrophils # (Auto) 5.4, Lymphocytes # (Auto) 0.5, Monocytes # (Auto) 0.6, Eosinophils # (Auto) 0.1, Basophils # (Auto) 0.0, Immature Granulocyte # (Auto) 0.1, Sodium Level 143, Potassium Level 3.6, Chloride Level 111, Carbon Dioxide Level 16, Anion Gap 16, Blood Urea Nitrogen 59, Creatinine 2.61, Estimat Glomerular Filtration Rate 25, BUN/Creatinine Ratio 23, Glucose Level 158, Calcium Level 7.4, Corrected Calcium 8.4, Phosphorus Level 5.9, Magnesium Level 2.0, Total Bilirubin 0.2, Aspartate Amino Transf (AST/SGOT) 32, Alanine Aminotransferase (ALT/SGPT) 15, Alkaline Phosphatase 72, Total Protein 5.4, Albumin 2.7 01/30/22 03:09: Blood Gas Puncture Site RRAD, Blood Gas Patient Temperature 36.4, Arterial Blood pH 7.26, Arterial Blood Partial Pressure CO2 45, Arterial Blood Partial Pressure O2 71, Arterial Blood HCO3 19, Arterial Blood Total CO2 20.7, Arterial Blood Oxygen Saturation 94, Arterial Blood Base Excess -6.5, Tuan Test YES-POS, Blood Gas Ventilator Setting YES, Blood Gas Inspired Oxygen 60% Discharge Home Medications: Active Scripts Active Reported Melatonin 3 Mg Tablet 3 Mg PO HS Flomax (Tamsulosin HCl) 0.4 Mg Cap 0.4 Mg PO 1800 TAKES 30 MINUTES AFTER EVENING MEAL Vitamin E (Vitamin E (Dl,Tocopheryl Acet)) 180 Mg (400 Unit) Capsule 400 Mg PO DAILY Vitamin D3 (Cholecalciferol (Vitamin D3)) 25 Mcg (1000 Unit) Tablet 25 Mcg PO DAILY Tiazac (Diltiazem HCl) 300 Mg Capsule.er 300 Mg PO DAILY Neurontin (Gabapentin) 300 Mg Capsule 300 Mg PO DAILY Furosemide 40 Mg Tablet 40 Mg PO DAILY Levemir (Insulin Determir) 100 Unit/Ml Soln 7 Units SQ HS Novolog (Insulin Aspart) 100 Unit/Ml Susp 3-4 Unit SQ AC Aspirin 81 Mg Tab.chew 81 Mg PO DAILY [place] 3 Fish Oil Softgel ([place]-3 Fatty Acids/Fish Oil) 684 Mg-1,200 Mg Capsule.dr 1 Each PO DAILY Atorvastatin Calcium 80 Mg Tablet 40 Mg PO HS TAKE 1/2 OF 80MG TAB Instructions to patient/family Please see electronic discharge instructions given to patient. KULDIP MONIQUE DO Jan 30, 2022 20:50
== END 2022-01-30 16:55 | disposition short-term general hospital (02) | DRG 207 ==
LOC: ICU 22:07
PROVIDERS: ADMIT Internal Medicine; ATTEND Internal Medicine
PROC: 5A1955Z Respiratory Ventilation, Greater than 96 Consecutive Hours (ICD-10-PCS; principal; 2022-01-25)
DX: J96.21 Acute and chronic respiratory failure with hypoxia (principal); J18.9 Pneumonia, unspecified organism; C34.12 Malignant neoplasm of upper lobe, left bronchus or lung; C77.1 Secondary and unspecified malignant neoplasm of intrathoracic lymph nodes; I13.0 Hypertensive heart and chronic kidney disease with heart failure and stage 1 through stage 4 chronic kidney disease, or unspecified chronic kidney disease; J44.0 Chronic obstructive pulmonary disease with (acute) lower respiratory infection; J44.1 Chronic obstructive pulmonary disease with (acute) exacerbation; E87.20 Acidosis, unspecified; Z87.891 Personal history of nicotine dependence; C67.9 Malignant neoplasm of bladder, unspecified; E11.22 Type 2 diabetes mellitus with diabetic chronic kidney disease; N18.9 Chronic kidney disease, unspecified; I50.9 Heart failure, unspecified; E11.40 Type 2 diabetes mellitus with diabetic neuropathy, unspecified; I25.10 Atherosclerotic heart disease of native coronary artery without angina pectoris; K59.09 Other constipation; R33.9 Retention of urine, unspecified; I08.0 Rheumatic disorders of both mitral and aortic valves; E78.5 Hyperlipidemia, unspecified; M16.0 Bilateral primary osteoarthritis of hip; M19.072 Primary osteoarthritis, left ankle and foot; M19.071 Primary osteoarthritis, right ankle and foot; M19.011 Primary osteoarthritis, right shoulder; M19.012 Primary osteoarthritis, left shoulder; Z99.81 Dependence on supplemental oxygen; Z85.49 Personal history of malignant neoplasm of other male genital organs; Z79.4 Long term (current) use of insulin; Z79.84 Long term (current) use of oral hypoglycemic drugs; Z79.1 Long term (current) use of non-steroidal anti-inflammatories (NSAID); Z79.82 Long term (current) use of aspirin
CPT/HCPCS: 36415; 71045; 80053; 82805; 82947; 83605; 83735; 83880; 84100; 84145; 84478; 85007; 85025; 85027; 87040; 87070; 87081; 87205; 94002; 94003; 94640; 94799